=== PATIENT | female | born 1935 | race Caucasian/White ===

== ENCOUNTER 2017-01-31 13:15 | Emergency (ER) | payer MEDICARE ==
[~2017-01-31] VITALS: Ht 152.4 cm; Wt 50.0 kg
[~2017-01-31 13:15] MED LIST: ALDA25TA2 PO; AMIO200T FT; ASPI1TAB PO; ATEN25TA PO; FAMO40TA3 PO; GLUC500C5 PO; OMEP40CA2 PO; PAXI40TA10 PO; VITA400T PO; VITACAP9 PO; XARE20TA PO
[2017-01-31] MEDS ORDERED: ESCI10TA2 PO (13:30)
[2017-01-31] MEDS ORDERED: ESOM1CAP5 PO (13:30)
[2017-01-31 15:07] VITALS: BP 136/63
--- NOTE | 2017-02-01 06:28 | REP ---
CT LUMBAR SPINE WITHOUT CONTRAST: HISTORY: Fall. A diffuse disc bulge is present at the L1-2 level. There is minimal compression of the thecal sac. The L1 nerves exit the neural foramina without compression. A diffuse disc bulge is present at the L2-3 level. There is hypertrophy of the ligamenta flava and posterior articulating facets. There are 4 mm of retrolisthesis of L2 on 3. These findings produce mild central canal stenosis. There is compression of the right L2 nerve in the neural foramen. The left L2 nerve exits the neural foramen without compression. A diffuse disc bulge is present at the L3-4 level. There is hypertrophy of the ligamenta flava and posterior articulating facets. These findings produce mild central canal stenosis. There is compression of the left L3 nerve in the neural foramen. The right L3 nerve exits the neural foramen without compression. A diffuse disc bulge is present at the L4-5 level. There is hypertrophy of the ligamenta flava and posterior articulating facets. There are 3 mm of grade 1 spondylolisthesis of L4 on 5. These findings produce severe central canal stenosis. There is compression of the L4 nerves in the neural foramina. A diffuse disc bulge is present at the L5-S1 level. There is hypertrophy of the ligamenta flava and posterior articulating facets. There are 4 mm of grade 1 spondylolisthesis of L5 on S1. These findings produce mild central canal stenosis. There is compression of the L5 nerves in the neural foramina. The intervertebral discs are decreased in height. Vacuum phenomenon is present at the L3-4 level. These findings are consistent with disc degeneration. There is partial fusion of the L1 and L2 vertebral bodies. There is scoliosis convex to the left. IMPRESSION: 1. Diffuse disc bulge at the L1-2 level with minimal thecal sac compression. 2. Mild central canal stenosis at the L2-3 level secondary to disc bulge, ligamentous and facet hypertrophy and retrolisthesis. 3. Mild central canal stenosis at the L3-4 level secondary to disc bulge, ligamentous and facet hypertrophy. 4. Severe central canal stenosis at the L4-5 level secondary to disc bulge, ligamentous and facet hypertrophy and grade 1 spondylolisthesis. 5. Mild central canal stenosis at the L5-S1 level secondary to disc bulge, ligamentous and facet hypertrophy and grade 1 spondylolisthesis. Signed by Ac Gallegos MD 02/01/2017 08:55 A
== END 2017-01-31 15:25 | disposition home or self-care (01) ==
LOC: M ED 13:15
DX: M48.061 Spinal stenosis, lumbar region without neurogenic claudication (principal); K58.9 Irritable bowel syndrome, unspecified; Z79.899 Other long term (current) drug therapy; Z79.01 Long term (current) use of anticoagulants; Z87.891 Personal history of nicotine dependence

== ENCOUNTER 2018-01-01 17:38 | Emergency (ER) | payer MEDICARE ==
[2018-01-01 19:03] LABS: HEMATOCRIT 34.7 % (36.0-47.0); HEMOGLOBIN 11.9 g/dl (12.0-15.5); MEAN CORPUSCULAR HEMOGLOBIN 33.8 pg (27.0-33.0); MEAN CORPUSCULAR HGB CONC 34.3 g/dl (32.0-36.5); MEAN CORPUSCULAR VOLUME 98.6 fl (80.0-96.0); PLATELET COUNT, AUTOMATED 262 10^3/uL (150-450); RED BLOOD COUNT 3.52 10^6/uL (4.00-5.40); WHITE BLOOD COUNT 5.1 10^3/uL (4.0-10.0)
[2018-01-01 19:36] LABS: ANION GAP 4 MEQ/L (8-16); BLOOD UREA NITROGEN 28 MG/DL (7-18); CARBON DIOXIDE LEVEL 32 MEQ/L (21-32); CHLORIDE LEVEL 104 MEQ/L (98-107); CREATININE FOR GFR 1.24 MG/DL (0.55-1.30); GLOMERULAR FILTRATION RATE 43.9 (>32); GLUCOSE, FASTING 81 MG/DL (70-100); MAGNESIUM LEVEL 2.1 MG/DL (1.8-2.4); POTASSIUM SERUM 4.6 MEQ/L (3.5-5.1); SODIUM LEVEL 140 MEQ/L (136-145)
== END 2018-01-01 20:57 | disposition home or self-care (01) ==
LOC: M ED 17:38
DX: R00.2 Palpitations (principal); R00.1 Bradycardia, unspecified; I44.7 Left bundle-branch block, unspecified; I48.91 Unspecified atrial fibrillation; I47.1 Supraventricular tachycardia; Z79.899 Other long term (current) drug therapy
CPT/HCPCS: 93005

== ENCOUNTER 2018-05-24 19:59 | Emergency (ER) | payer MEDICARE ==
[~2018-05-24] VITALS: Ht 160 cm; Wt 50.5 kg
[~2018-05-24 19:59] MED LIST changes: +ESCI10TA2 PO; +ESOM1CAP5 PO
[2018-05-24 22:22] LABS: BASO % 0.4 % (0.0-1.0); EOS # 0.1 10^3/uL (0.0-0.50); EOS % 1.2 % (0.0-3.0); HEMATOCRIT 35.7 % (36.0-47.0); HEMOGLOBIN 12.1 g/dl (12.0-15.5); LYMPH # 1.3 10^3/uL (1.5-4.5); LYMPH % 24.7 % (24.0-44.0); MEAN CORPUSCULAR HEMOGLOBIN 33.9 pg (27.0-33.0); MEAN CORPUSCULAR HGB CONC 33.9 g/dl (32.0-36.5); MONO # 0.2 10^3/uL (0.0-0.8); MONO % 4.3 % (0.0-5.0); NEUTROPHILS # 3.6 10^3/uL (1.8-7.7); NEUTROPHILS % 69.2 % (36.0-66.0); PLATELET COUNT, AUTOMATED 245 10^3/uL (150-450); RED BLOOD COUNT 3.57 10^6/uL (4.00-5.40); WHITE BLOOD COUNT 5.1 10^3/uL (4.0-10.0)
--- NOTE | 2018-05-24 22:25 | REPVR ---
EXAM: CT Head Without Contrast EXAM DATE/TIME: 05/24/2018 10:02 PM CLINICAL HISTORY: 82 years old, female; Signs and symptoms; Other: General weakness; Additional info: CVA - nursing interventions must not delay CT TECHNIQUE: Axial computed tomography images of the head/brain without contrast. All CT scans at this facility use at least one of these dose optimization techniques: automated exposure control; mA and/or kV adjustment per patient size (includes targeted exams where dose is matched to clinical indication); or iterative reconstruction. COMPARISON: No relevant prior studies available. FINDINGS: Brain: There is parenchymal volume loss. White matter changes are demonstrated in the subcortical, centrum semiovale and periventricular white matter consistent with small vessel white matter angiopathic gliosis. Ventricles: Normal. No ventriculomegaly. Bones/joints: Normal. No acute fracture. Sinuses: Normal as visualized. No acute sinusitis. Mastoid air cells: Normal as visualized. No mastoid effusion. Soft tissues: Normal. Vasculature: Atherosclerotic changes in the intracranial carotid arteries. No hyperdense MCA sign. IMPRESSION: There is parenchymal volume loss. White matter changes are demonstrated in the subcortical, centrum semiovale and periventricular white matter consistent with small vessel white matter angiopathic gliosis. The [place] Stroke Stroke Protocol Score (ASPECT) is 10. Electronically signed by: Timbo Mora On 05/24/2018 22:25:09 PM
[2018-05-24 22:35] LABS: INR 1.46
[2018-05-24 22:36] LABS: PARTIAL THROMBOPLASTIN TIME 35.1 SECONDS (25.4-37.6)
[2018-05-24 22:46] LABS: CREATININE FOR GFR 1.02 MG/DL (0.55-1.30); MB/CK RELATIVE INDEX 3.64 (< OR =4); POTASSIUM SERUM 3.8 MEQ/L (3.5-5.1); TROPONIN I 0.02 NG/ML (< 0.10)
[2018-05-24 23:05] VITALS: BP 158/70
--- NOTE | 2018-05-25 09:07 | REP ---
PORTABLE CHEST X-RAY: Single view. HISTORY: CVA. COMPARISON STUDY: February 23, 2016. FINDINGS: There is a fairly marked S-shaped thoracolumbar scoliotic curve. The right hemidiaphragm is markedly elevated unchanged. There is a heterogeneous increased density pattern over the heart suggesting hiatal hernia. This is also similar to the prior study. Heart is not felt to be enlarged. The aorta is tortuous and calcific. No new infiltrate is seen. No pleural effusion is noted. Pulmonary vasculature is not increased. There is diffuse osteopenia. IMPRESSION: Markedly elevated right hemidiaphragm. Probable hiatal hernia. No acute disease. Electronically Signed by Kirby Sanchez MD 05/25/2018 09:38 A
--- NOTE | 2018-05-29 10:06 | ECGEPIP ---
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
== END 2018-05-24 23:39 | disposition home or self-care (01) ==
LOC: EDBD 19:59 → M ED 19:59
DX: R53.81 Other malaise (principal); R63.4 Abnormal weight loss; I48.91 Unspecified atrial fibrillation; T43.015A Adverse effect of tricyclic antidepressants, initial encounter; M25.511 Pain in right shoulder; R35.0 Frequency of micturition; K58.0 Irritable bowel syndrome with diarrhea; K21.9 Gastro-esophageal reflux disease without esophagitis; I47.1 Supraventricular tachycardia; Z87.891 Personal history of nicotine dependence; Z79.899 Other long term (current) drug therapy; Z79.01 Long term (current) use of anticoagulants

== ENCOUNTER 2018-08-27 15:32 | Emergency (ER) | payer MEDICARE ==
[~2018-08-27] VITALS: Ht 152.4 cm; Wt 48.6 kg
[~2018-08-27 15:32] MED LIST changes: -ASPI1TAB PO; +ASPI81TA26 PO
[2018-08-27 15:33] VITALS: BP 185/82
--- NOTE | 2018-08-27 16:08 | REP ---
CT Head without contrast HISTORY: Fall COMPARISON: 05/24/2018 Areas of decreased attenuation are present in the periventricular white matter. This represents small-vessel ischemic disease. There is no intraparenchymal hemorrhage, acute infarct, mass or midline shift. The ventricular system and cortical sulci are dilated consistent with mild volume loss. There is no extra cerebral collection. There is no fracture. The visualized sinuses are clear. IMPRESSION: 1. Small vessel ischemic disease. 2. Mild volume loss. Electronically Signed by Ac Gallegos MD 08/27/2018 03:59 P
--- NOTE | 2018-08-27 16:13 | REP ---
CT cervical spine without contrast HISTORY: Fall COMPARISON: None There is no acute fracture. A disc bulge is present at the C2-3 level. Disc bulges with associated osteophyte formation are present at the C3-4 through C6-7 levels. There is minimal narrowing of the spinal canal. Uncinate process and/or facet hypertrophy are present at the C2-3 through C7-T1 levels. These findings produce minimal to moderate narrowing of the neural foramina. The cervical intervertebral discs are decreased in height consistent with disc degeneration. There is extensive calcification of the C2 transverse ligament. Subchondral cysts are present in the the C2, four and five vertebral bodies. There are 2 mm of anterior subluxation of C3-4 and C7 on T1. IMPRESSION: 1. There is no acute fracture or subluxation. 2. There is cervical spondylosis at the C2-3 through C7-T1 levels. Electronically Signed by Ac Gallegos MD 08/27/2018 04:05 P
--- NOTE | 2018-08-27 16:28 | REP ---
Chest one-view HISTORY: Fall Comparison: 05/24/2018 There is elevation of the right hemidiaphragm. The lungs are clear. The heart is normal in size. The pulmonary vasculature is normal in appearance. Impression: No acute disease. Electronically Signed by Ac Gallegos MD 08/27/2018 04:19 P
--- NOTE | 2018-08-28 07:16 | REP ---
AP PELVIS, ONE VIEW: HISTORY: Fall. There is no acute fracture or dislocation. There is marked narrowing of the right hip joint space and mild narrowing of the left hip joint space. The bony structure is osteopenic. IMPRESSION: There is no acute fracture or dislocation. Electronically Signed by Ac Gallegos MD 08/28/2018 08:33 A
--- NOTE | 2018-08-28 07:18 | REP ---
LEFT HIP, TWO VIEWS: HISTORY: Fall. There is no acute fracture or dislocation. There is mild narrowing of the joint space. The bony structure is osteopenic. IMPRESSION: There is no acute fracture or dislocation. Electronically Signed by Ac Gallegos MD 08/28/2018 08:33 A
--- NOTE | 2018-08-28 07:19 | REP ---
LEFT FEMUR, TWO VIEWS: The proximal third of the femur is not seen in the present radiographs. There is no acute fracture or dislocation. There is moderate narrowing of the knee joint space. Chondrocalcinosis is present. The bony structure is osteopenic. IMPRESSION: There is no acute fracture or dislocation. Electronically Signed by Ac Gallegos MD 08/28/2018 08:33 A
== END 2018-08-27 17:46 | disposition home or self-care (01) ==
LOC: M ED 15:32
DX: S00.93XA Contusion of unspecified part of head, initial encounter (principal); S70.02XA Contusion of left hip, initial encounter; W01.198A Fall on same level from slipping, tripping and stumbling with subsequent striking against other object, initial encounter; Y92.488 Other paved roadways as the place of occurrence of the external cause; Y99.8 Other external cause status; Z79.01 Long term (current) use of anticoagulants; Z79.899 Other long term (current) drug therapy

== ENCOUNTER 2019-03-11 21:03 | Emergency (ER) | payer MEDICARE ==
[~2019-03-11] VITALS: Ht 152.4 cm; Wt 45.5 kg
[~2019-03-11 21:03] MED LIST changes: -OMEP40CA2 PO; +OMEP40CA97 PO
[2019-03-11 21:07] VITALS: BP 180/94
[2019-03-11] MEDS ORDERED: REME15TA PO (21:28)
[2019-03-11] MEDS ORDERED: CARV3.12 PO (21:28)
[2019-03-11] MEDS ORDERED: traMADol 50 MG TAB PO ONE (21:45)
[2019-03-11] MEDS ORDERED: NS 500 ML IV ONE (21:45)
[2019-03-11 21:55] LABS: BASO % 0.2 % (0.0-1.0); EOS % 0.1 % (0.0-3.0); HEMATOCRIT 35.7 % (36.0-47.0); HEMOGLOBIN 11.6 g/dl (12.0-15.5); LYMPH # 0.8 10^3/uL (1.5-5.0); LYMPH % 4.7 % (24.0-44.0); MEAN CORPUSCULAR HEMOGLOBIN 34.1 pg (27.0-33.0); MEAN CORPUSCULAR HGB CONC 32.5 g/dl (32.0-36.5); MONO # 0.5 10^3/uL (0.0-0.8); MONO % 2.9 % (0.0-5.0); NEUTROPHILS # 14.9 10^3/uL (1.5-8.5); NEUTROPHILS % 91.5 % (36.0-66.0); PLATELET COUNT, AUTOMATED 332 10^3/uL (150-450); WHITE BLOOD COUNT 16.3 10^3/uL (4.0-10.0)
[2019-03-11 22:15] LABS: CALCIUM LEVEL 8.9 MG/DL (8.8-10.2); CREATININE FOR GFR 1.43 MG/DL (0.55-1.30); GLOMERULAR FILTRATION RATE 37.1 (>32); POTASSIUM SERUM 4.1 MEQ/L (3.5-5.1)
--- NOTE | 2019-03-11 22:41 | REPVR ---
PROCEDURE INFORMATION: Exam: CT Pelvis Without Contrast; Skeletal Exam date and time: 03/11/2019 9:54 PM Clinical history: 83 years old, female; Injury or trauma; Fall; Initial encounter; Blunt trauma (contusions or hematomas); Bilateral; Pelvic region; Additional info: Tr TECHNIQUE: Imaging protocol: Computed tomography images of the pelvis without contrast. Exam focused on the skeletal structures. Radiation optimization: All CT scans at this facility use at least one of these dose optimization techniques: automated exposure control; mA and/or kV adjustment per patient size (includes targeted exams where dose is matched to clinical indication); or iterative reconstruction. COMPARISON: CR Pelvis Ap ONLY 08/27/2018 3:59 PM FINDINGS: Bones/joints: There is a nondisplaced fracture extending to the anterior cortex of the S3 segment of the sacrum (image 62, series 204). Fracture may extend to the dorsal surface of the sacrum at the same level. No other sacral fracture is seen. Old healed fractures of the left superior and inferior pubic rami. No other fractures are seen. Advanced osteoarthritis in both hips, worse on the right. Normal alignment. Femoral heads are intact. Advanced degenerative spondylosis in the lumbar spine with and spinal stenosis at L4-5 and L5-S1. Bilateral SI joint DJD without ankylosis or diastases. Soft tissues: Unremarkable. IMPRESSION: 1. Nondisplaced transverse mid sacral fracture. 2. Old healed left superior and inferior pubic rami fractures. 3. Advanced degenerative spondylosis with lower lumbar spinal stenosis and hip osteoarthritis. Electronically signed by: Victorino Briggs On 03/11/2019 22:40:24 PM
--- NOTE | 2019-03-11 22:46 | REPVR ---
PROCEDURE INFORMATION: Exam: CT Right Lower Extremity Without Contrast, Hip Exam date and time: 03/11/2019 9:54 PM Clinical history: 83 years old, female; Injury or trauma; Fall; Initial encounter; Blunt trauma; Hip; Bilateral; Additional info: Tr TECHNIQUE: Imaging protocol: CT of the Right lower extremity without contrast was performed. Exam focused on the hip. Radiation optimization: All CT scans at this facility use at least one of these dose optimization techniques: automated exposure control; mA and/or kV adjustment per patient size (includes targeted exams where dose is matched to clinical indication); or iterative reconstruction. COMPARISON: CR Hip, Ap,Lat 08/27/2018 3:59 PM FINDINGS: Bones/joints: Advanced degenerative changes in the right SI joint, pubic symphysis, and right hip. No acute fracture or malalignment. Soft tissues: Normal. IMPRESSION: 1. No hip fracture or malalignment. 2. Advanced osteoarthritis. 3. Transverse fracture of the sacrum at S3. See pelvis CT report. PROCEDURE INFORMATION: Exam: CT Left Lower Extremity Without Contrast, Hip Exam date and time: 03/11/2019 9:54 PM Clinical history: 83 years old, female; Injury or trauma; Fall; Initial encounter; Blunt trauma; Hip; Bilateral; Additional info: Tr TECHNIQUE: Imaging protocol: CT of the Left lower extremity without contrast was performed. Exam focused on the hip. Radiation optimization: All CT scans at this facility use at least one of these dose optimization techniques: automated exposure control; mA and/or kV adjustment per patient size (includes targeted exams where dose is matched to clinical indication); or iterative reconstruction. COMPARISON: CR Hip, Ap,Lat 08/27/2018 3:59 PM FINDINGS: Bones/joints: Old healed left inferior and superior pubic rami fractures. Advanced degenerative arthrosis in the left SI joint, pubic symphysis, and left hip. No acute fracture or malalignment. Soft tissues: Normal. IMPRESSION: 1. No acute hip fracture or malalignment. 2. Advanced osteoarthritis. Electronically signed by: Victorino Briggs On 03/11/2019 22:46:13 PM
[2019-03-11] MEDS ORDERED: VICO7.5T12 PO (23:38)
[2019-03-11] MEDS ORDERED: NORCO 5/325MG TABLET (BULK FOR ED) PO ONE (23:45)
== END 2019-03-12 00:05 | disposition home or self-care (01) ==
LOC: M ED 21:03
DX: S32.10XA Unspecified fracture of sacrum, initial encounter for closed fracture (principal); W18.39XA Other fall on same level, initial encounter; Y92.018 Other place in single-family (private) house as the place of occurrence of the external cause; I47.1 Supraventricular tachycardia; E83.119 Hemochromatosis, unspecified; Z79.899 Other long term (current) drug therapy; Z79.01 Long term (current) use of anticoagulants

== ENCOUNTER → 2019-03-27 | Outpatient (REF) ==
[~2019-03-27] MED LIST changes: +CARV3.12 PO; +REME15TA PO; +VICO7.5T12 PO
[2019-03-27 08:17] LABS: ALBUMIN 3.1 GM/DL (3.2-5.2); BILIRUBIN,DIRECT 0.3 MG/DL (0.0-0.2); BILIRUBIN,TOTAL 0.8 MG/DL (0.2-1.0); CALCIUM LEVEL 8.7 MG/DL (8.8-10.2); CREATININE FOR GFR 1.06 MG/DL (0.55-1.30); GLOMERULAR FILTRATION RATE 52.4 (>32); POTASSIUM SERUM 4.4 MEQ/L (3.5-5.1); TOTAL PROTEIN 6.5 GM/DL (6.4-8.2)
[2019-03-27 08:49] LABS: HEMATOCRIT 35.8 % (36.0-47.0); HEMOGLOBIN 11.5 g/dl (12.0-15.5); MEAN CORPUSCULAR HEMOGLOBIN 34.4 pg (27.0-33.0); MEAN CORPUSCULAR HGB CONC 32.1 g/dl (32.0-36.5); MEAN CORPUSCULAR VOLUME 107.2 fl (80.0-96.0); PLATELET COUNT, AUTOMATED 369 10^3/uL (150-450); RED BLOOD COUNT 3.34 10^6/uL (4.00-5.40)
== END ==
LOC: SKLAB5 09:58
PROVIDERS: ATTEND Internal Medicine
DX: D64.9 Anemia, unspecified (principal); Z79.899 Other long term (current) drug therapy

== ENCOUNTER 2019-11-25 13:33 | Emergency (ER) | payer MEDICARE ==
[~2019-11-25 13:33] MED LIST changes: -AMIO200T FT; +AMIO200T3 FT
[2019-12-22 11:38] LABS: INR 2.04; PARTIAL THROMBOPLASTIN TIME 30.8 SECONDS (25.0-38.4); PROTHROMBIN TIME 23.5 SECONDS (11.8-14.0)
[2019-12-22 14:46] LABS: BASO % 0.4 % (0.0-1.0); EOS % 0.3 % (0.0-3.0); HEMATOCRIT 32.5 % (36.0-47.0); HEMOGLOBIN 11.2 g/dl (12.0-15.5); LYMPH # 1.8 10^3/uL (1.5-5.0); LYMPH % 26.2 % (24.0-44.0); MEAN CORPUSCULAR HEMOGLOBIN 34.6 pg (27.0-33.0); MEAN CORPUSCULAR HGB CONC 34.5 g/dl (32.0-36.5); MEAN CORPUSCULAR VOLUME 100.3 fl (80.0-96.0); MONO # 0.3 10^3/uL (0.0-0.8); MONO % 4.6 % (0.0-5.0); NEUTROPHILS # 4.7 10^3/uL (1.5-8.5); NEUTROPHILS % 68.2 % (36.0-66.0); PLATELET COUNT, AUTOMATED 321 10^3/uL (150-450); RED BLOOD COUNT 3.24 10^6/uL (4.00-5.40)
[2020-01-02 07:41] LABS: CALCIUM LEVEL 9.6 MG/DL (8.8-10.2); CREATININE FOR GFR 1.18 MG/DL (0.55-1.30); GLOMERULAR FILTRATION RATE 46.2 (>32); PHOSPHORUS LEVEL 3.5 MG/DL (2.5-4.9); POTASSIUM SERUM 4.7 MEQ/L (3.5-5.1)
[2020-01-02 07:42] LABS: ALBUMIN 3.9 GM/DL (3.2-5.2); BILIRUBIN,DIRECT 0.5 MG/DL (0.0-0.2); BILIRUBIN,TOTAL 2.4 MG/DL (0.2-1.0); CK-MB VALUE MASS 2.9 NG/ML (<3.6); FREE T4 1.45 NG/DL (0.76-1.46); MAGNESIUM LEVEL 1.9 MG/DL (1.8-2.4); MB/CK RELATIVE INDEX 1.9 (< OR =4); THYROID STIMULATING HORMONE 0.468 uIU/ML (0.358-3.740); TOTAL PROTEIN 7.1 GM/DL (6.4-8.2); TROPONIN I 0.02 NG/ML (< 0.10)
[2020-01-02 07:45] LABS: CK-MB VALUE MASS 2.4 NG/ML (<3.6); MB/CK RELATIVE INDEX 1.86 (< OR =4); TROPONIN I 0.02 NG/ML (< 0.10)
--- NOTE | 2020-01-18 16:15 | ECGEPIP ---
SINUS RHYTHM WITH SINUS ARRHYTHMIA LAD LBBB SEE SCANNED DOWNTIME REPORT MTDD
== END 2019-11-25 19:48 | disposition home or self-care (01) ==
LOC: M ED 13:33
DX: R07.9 Chest pain, unspecified (principal); R00.2 Palpitations; I48.91 Unspecified atrial fibrillation; I47.1 Supraventricular tachycardia; I44.7 Left bundle-branch block, unspecified; I34.1 Nonrheumatic mitral (valve) prolapse; Z79.899 Other long term (current) drug therapy; Z79.01 Long term (current) use of anticoagulants; Z87.891 Personal history of nicotine dependence

== ENCOUNTER 2020-02-15 11:44 | Emergency (ER) | payer MEDICARE ==
[~2020-02-15] VITALS: Ht 152.4 cm; Wt 46.4 kg
[2020-02-15] MEDS ORDERED: BUSP10TA (11:57)
[2020-02-15] MEDS ORDERED: MIRT1TAB15 (11:57)
[2020-02-15 14:00] LABS: BASO % 0.6 % (0.0-1.0); EOS # 0.1 10^3/uL (0.0-0.5); EOS % 0.8 % (0.0-3.0); HEMOGLOBIN 11.7 g/dl (12.0-15.5); LYMPH % 31.1 % (24.0-44.0); MEAN CORPUSCULAR HEMOGLOBIN 34.8 pg (27.0-33.0); MEAN CORPUSCULAR HGB CONC 33.4 g/dl (32.0-36.5); MEAN CORPUSCULAR VOLUME 104.2 fl (80.0-96.0); MONO # 0.3 10^3/uL (0.0-0.8); MONO % 4.9 % (0.0-5.0); NEUTROPHILS # 4.1 10^3/uL (1.5-8.5); NEUTROPHILS % 62.1 % (36.0-66.0); PLATELET COUNT, AUTOMATED 304 10^3/uL (150-450); RED BLOOD COUNT 3.36 10^6/uL (4.00-5.40); WHITE BLOOD COUNT 6.6 10^3/uL (4.0-10.0)
[2020-02-15 14:11] LABS: INR 1.99; PROTHROMBIN TIME 23.1 SECONDS (12.5-14.3)
[2020-02-15 14:15] LABS: ALBUMIN 3.8 GM/DL (3.2-5.2); BILIRUBIN,DIRECT 0.4 MG/DL (0.0-0.2); BILIRUBIN,TOTAL 1.7 MG/DL (0.2-1.0); TOTAL PROTEIN 6.9 GM/DL (6.4-8.2)
[2020-02-15 15:42] VITALS: BP 129/63
--- NOTE | 2020-02-15 19:41 | ECGEPIP ---
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
== END 2020-02-15 16:24 | disposition home or self-care (01) ==
LOC: M ED 11:44
DX: R19.5 Other fecal abnormalities (principal); J44.9 Chronic obstructive pulmonary disease, unspecified; I48.91 Unspecified atrial fibrillation; I44.7 Left bundle-branch block, unspecified; I10 Essential (primary) hypertension; Z79.899 Other long term (current) drug therapy

== ENCOUNTER 2020-03-15 07:48 | Inpatient (IN) | payer MEDICARE ==
[~2020-03-15] VITALS: Ht 152.4 cm; Wt 47.7 kg
[~2020-03-15 07:48] MED LIST changes: +BUSP10TA PO; +MIRT1TAB15
[2020-03-15] MEDS ORDERED: ACETAMINOPHEN 325 MG TAB PO ONE (08:45)
[2020-03-15 08:47] LABS: BASO % 0.3 % (0.0-1.0); EOS # 0.1 10^3/uL (0.0-0.5); EOS % 0.4 % (0.0-3.0); HEMATOCRIT 38.3 % (36.0-47.0); HEMOGLOBIN 12.9 g/dl (12.0-15.5); LYMPH # 2.3 10^3/uL (1.5-5.0); LYMPH % 18.2 % (24.0-44.0); MEAN CORPUSCULAR HGB CONC 33.7 g/dl (32.0-36.5); MEAN CORPUSCULAR VOLUME 103.8 fl (80.0-96.0); MONO # 0.5 10^3/uL (0.0-0.8); MONO % 3.9 % (0.0-5.0); NEUTROPHILS # 9.6 10^3/uL (1.5-8.5); NEUTROPHILS % 76.2 % (36.0-66.0); PLATELET COUNT, AUTOMATED 316 10^3/uL (150-450); RED BLOOD COUNT 3.69 10^6/uL (4.00-5.40); WHITE BLOOD COUNT 12.6 10^3/uL (4.0-10.0)
--- NOTE | 2020-03-15 09:06 | REP ---
INDICATION: abd pain, h/o constipation. COMPARISON: None TECHNIQUE: Supine one-view FINDINGS: There is a levorotatory scoliosis of the thoracolumbar spine centered at L2 and with extensive degenerative disc and facet arthritic changes. Large bridging syndesmophytes are seen along the right aspect of the L2-3 level. Facet arthropathy at all levels in a symmetric on the right and left sides at various levels according to altered weight-bearing mechanics. Bony pelvis, hips and SI joints also show some degenerative change. Few pelvic phleboliths are noted. I do not see definite stone in the renal fossa. Gas pattern is nonspecific. There is a paucity of gas in small bowel and no dilated colon to suggest constipation. There is some colonic interposition in the right upper quadrant between the diaphragm and liver. This is an anatomic variation. No definite renal or ureteral stone. IMPRESSION: 1. No evidence of constipation. Nonspecific gas pattern. There was some colonic interposition in the right upper quadrant as anatomic variation. 2. 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 3. Hip and SI joint degenerative changes. No definite acute finding. <Electronically signed by Frederick Amaya > 03/15/20 [id number]
[2020-03-15 09:14] LABS: ALBUMIN 3.8 GM/DL (3.2-5.2); ALT/SGPT 15 U/L (12-78); BILIRUBIN,DIRECT 0.2 MG/DL (0.0-0.2); BILIRUBIN,TOTAL 1.7 MG/DL (0.2-1.0); BLOOD UREA NITROGEN 34 MG/DL (7-18); CALCIUM LEVEL 9.3 MG/DL (8.8-10.2); CARBON DIOXIDE LEVEL 25 MEQ/L (21-32); CHLORIDE LEVEL 107 MEQ/L (98-107); CREATININE FOR GFR 1.12 MG/DL (0.55-1.30); GLOMERULAR FILTRATION RATE 49.1 (>32); GLUCOSE, FASTING 83 MG/DL (70-100); LIPASE 248 U/L (73-393); SODIUM LEVEL 138 MEQ/L (136-145); TOTAL PROTEIN 7.1 GM/DL (6.4-8.2)
[2020-03-15] MEDS: GASTROGRAFIN SOLUTION 30ML PO SCH ×2 (09:37→10:07)
[2020-03-15 10:19] LABS: CK-MB VALUE MASS 2.2 NG/ML (<3.6); CPK CREATINE PHOSPHOKINASE 129 U/L (26-192); MB/CK RELATIVE INDEX 1.71 (< OR =4); TROPONIN I < 0.02 NG/ML (< 0.10)
[2020-03-15] MEDS ORDERED: ONDANSETRON 4MG/2ML VIAL IV ONE (10:30)
[2020-03-15] MEDS ORDERED: ISOVUE-370 76% 100ML VIAL As Ordered ONE (11:00)
--- NOTE | 2020-03-15 12:17 | REP ---
INDICATION: diffuse abd pain. COMPARISON: CT pelvis 03/11/2019, CT abdomen 08/25/2016, KUB 03/15/2020 TECHNIQUE: Oral Gastrografin mixture per our bowel contrast protocol with bolus of 100 mL Isovue 370 scanning through the abdomen and pelvis with both coronal and sagittal reconstructions. FINDINGS: CT abdomen: Computational Biologist film shows levorotatory scoliosis centered at L3. Scoliosis exaggerates elevation of the right diaphragm. Tortuosity of the aorta and ectasia without gross aneurysm. Liver shows small cyst adjacent to the gallbladder fossa. No solid hepatic mass or intrahepatic biliary dilatation. No splenomegaly or focal splenic lesion. There is an hiatal hernia with the fundus of the diaphragm. No calcified gallstones. Pancreas without mass or ductal dilatation. No peripancreatic inflammatory change or fluid collection. An upper pole cyst is again seen in the right kidney and medially in the interpolar lower pole junction. Left kidney show no definite cyst. There is no hydronephrosis stone or solid mass. No ureteral dilatation or stone. Small bowel loops are grossly unremarkable. Oral contrast reaches the transverse colon. No colitis or diverticulitis in the right and most of the transverse colon. No aortic aneurysm. There is no periaortic retroperitoneal adenopathy. No free air on lung window review of all CT slices. No ascites. The bone windows show scoliosis advanced degenerative disc and facet changes without acute compression deformity in the lumbar spine facet arthropathy noted. The lower ribs grossly intact. CT pelvis: Degenerative changes both hips right greater than left with [id number] appearance for the right and marginal osteophytes greater right than left. The S3 anterior cortex fracture which is very well seen 4 days ago on the dedicated CT pelvis filtered bone windows, is not well seen on bone windows made from standard soft tissue filters. However this is a true fracture. In the left upper quadrant just before the splenic flexure there is wall edema and enhancement of a short segment of distal transverse colon at the splenic flexure. Is also some and the proximal left colon and infiltration of adjacent fat. Remainder of the left colon to proximal sigmoid was unremarkable. However there is a zone of wall thickening edema and infiltration of fat in the deep pelvis at the sigmoid with numerous diverticula and representing acute diverticulitis there is no perforation or abscess at this time. No pelvic mass. Small bowel loops unremarkable cecum. I do not see inflammatory change about the cecum. Bladder without mass or wall thickening. There is no renal ureteral or bladder stone. No ventral or inguinal hernia. IMPRESSION: Sigmoid diverticulitis with inflammatory changes in the fat adjacent but no definite evidence for perforation or abscess. There is a short segment of transverse colon before the splenic flexure and splenic flexure to proximal left colon with inflammatory changes suggesting a colitis although diverticulitis could be present. No specific diverticula seen in that region. There is no ascites abscess or free air anywhere in the abdomen or pelvis. Scoliosis in the danced degenerative changes of the spine. A nondisplaced fracture of the anterior cortex of the S3 sacral segment is better seen on the dedicated CT pelvis than this study. Few liver cysts but liver, spleen, gallbladder, pancreas, adrenal glands and kidneys without acute finding. Some renal cysts noted no stones. <Electronically signed by Frederick Amaya > 03/15/20 [id number]
[2020-03-15] MEDS ORDERED: MORPHINE 2 MG/ML 1ML VIAL (J2270) IV ONE (13:00)
[2020-03-15] MEDS ORDERED: XARE20TA PO (14:45)
[2020-03-15] MEDS ORDERED: SPIR-10 PO (14:45)
[2020-03-15] MEDS ORDERED: AUGMENTIN 875 MG TAB PO ONE (14:45)
[2020-03-15] MEDS ORDERED: D31000TA2 PO (14:45)
[2020-03-15] MEDS ORDERED: REME15TA PO (14:45)
[2020-03-15 15:13] LABS: CK-MB VALUE MASS 1.9 NG/ML (<3.6); CPK CREATINE PHOSPHOKINASE 53 U/L (26-192); MB/CK RELATIVE INDEX 3.58 (< OR =4); TROPONIN I < 0.02 NG/ML (< 0.10)
[2020-03-15] MEDS ORDERED: ACETAMINOPHEN TAB 650MG DOSE (2X325MG) PO PRN (16:00)
--- NOTE | 2020-03-15 16:17 | HPEPDOC ---
[facility] Medical History & Physical Date of Admission Mar 15, 2020 Date of Service: Mar 15, 2020 History and Physical CHIEF COMPLAINT: abdominal pain HISTORY OF PRESENT ILLNESS: 84 yo F with hx PMHx of COPD, afib (on xarelto), LBBB, presented to [facility] ER with progressively worsening generalized abdominal pain which started 1 day ago. It is 7/10 in severity, diffuse but worse in the bilateral lower quadrants non radiating and is not related to food. Patient does endorse that the pain seems to be related to constipation. She notices mild improvement in pain whenever she has a small hard bowel movement. She denies blood in stool. She denies subjective fevers/chills.. She has not eaten for the past 24 hours. She reports that she uses 2 L of oxygen at night, I suspect this is due to COPD but the patient states is due to her heart. She follows with Dr. Sebastian Ovalle cardiology, but states that she has not seen him in several years. Her history suggests paroxysmal supraventricular tachycardia, although she is on anticholesterol question therefore suspect this is atrial fibrillation. She does endorse feeling slight palpitations this morning, but have now resolved. Vitals and labs reviewed. T 98/4/ HR 80. RR22. BP 148/74. SpO2 96% on RA. WBC 12.6. Hgb 12.9. MCV 103.8. Na 13.8. K 5.0. T bili 1.7. D bili 0.2. AST 42. ALT 14. ALP 44. Trop <0.02 x 2. EKG no acute changes. UA showing 1+ blood. CT abdo pelvis reviewed. Showing sigmoid diverticulitis with possible colitis/diverticulitis in transverse colon pre-splenic flexure. PAST MEDICAL HISTORY: 1. Left bundle branch block. 2. Paroxysmal supraventricular tachycardia (PSVT). 3. Nonrheumatic tricuspid valve insufficiency. 4. Mitral valve disorder. 5. Chronic obstructive pulmonary disease (COPD). 6. Atrial fibrillation 7. Irritable bowel syndrome 8. Hemachromatosis 9. Depression PAST SURGICAL HISTORY: Left oophorectomy SOCIAL HISTORY: Patient is a former smoker, has a [id number] history Denies alcohol, denies illicit drug use FAMILY HISTORY: History of coronary artery disease and CVA ALLERGIES: Please see below. REVIEW OF SYSTEMS: CONSTITUTIONAL: patient denies fevers, chills HEENT: patient denies blurred vision, loss of vision, headache,. CARDIOVASCULAR: Occasional palpitations. Denies chest pain, although endorsed a heaviness. RESPIRATORY: patient denies shortness of breath, cough, hemoptysis. GASTROINTESTINAL: Patient reports diffuse abdominal pain, worse in the bilateral lower quadrants, reduced PO mouth intake, constipation GENITOURINARY: patient denies dysuria, discharge. SKIN: patient denies rashes. MUSCULOSKELETAL: patient denies joint pain, neck pain. NEUROLOGICAL: patient denies focal weakness, numbness, seizures. PSYCHIATRIC: patient denies SI/HI. ENDOCRINE: patient denies polyuria, heat intolerance, cold intolerance. HEMATOLOGIC/LYMPHATIC: patient denies easy bruising. HOME MEDICATIONS: Please see below. PHYSICAL EXAMINATION: VITAL SIGNS: please see below General: NAD, comfortable HEENT: PERRLA, EOMI, sclerae clear Neck: supple, normal ROM, no JVD Respiratory: lungs CTAB, no wheeze, no rales, no crackles CVS: RRR, normal S1, S2, no murmurs Abdo: soft, no masses, no hepatosplenomegaly, BS+, very mildly tender to palpation diffusely Extremities: no edema, pulses 2+ MSK: no joint deformities, normal ROM Neuro: no focal neuro deficits, moving all 4 extremities, CN2-12 intact. Strengt h 5/5 in all 4 extremities. No nystagmus. Psych: calm, cooperative, AAO x 3 LABORATORY DATA: See below. IMAGING: CT abdomen/pelvis (03/15/20): Sigmoid diverticulitis with inflammatory changes in the fat adjacent but no definite evidence for perforation or abscess. There is a short segment of transverse colon before the splenic flexure and splenic flexure to proximal left colon with inflammatory changes suggesting a colitis although diverticulitis could be present. No specific diverticula seen in that region. There is no ascites abscess or free air anywhere in the abdomen or pelvis. Scoliosis in the danced degenerative changes of the spine. A nondisplaced fracture of the anterior cortex of the S3 sacral segment is better seen on the dedicated CT pelvis than this study. Few liver cysts but liver, spleen, gallbladder, pancreas, adrenal glands and kidneys without acute finding. Some renal cysts noted no stones. MICROBIOLOGY: Please see below. ASSESSMENT: 84-year-old female with a history of SVT/A. fib on Oquist, COPD, GERD, IBS, hemachromatosis, depression who presented to [facility] from home with the diffuse abdominal pain, worse in the bilateral lower quadrants. CT imaging s uggestive of diverticulitis. Patient was admitted for the management of acute diverticulitis.. . PLAN: #Acute diverticulitis: WBC 12.6. Afebrile. Obtain blood cultures x 2. Flagyl 500 MG q8h IV. Cipro 400 mg IV q12h. Serial abdo exam. NPO except for meds. Tylenol for fevers. Morphine 2 mg IV q6h prn for pain. #Elevated bilirubin: repeat in AM. no transaminitis. Check liver US. #Hematuria: 1+ on UA. Likely 2/2 xarelto. Repeat as outpt. #hx of PSVT/afib?: AC with eliquis, although I am not certain of the indication as I cannot find documented afib. Coreg 3.125 mg PO q12h. #COPD: nocturnal O2. duonebs q4h prn. #Cor pulmonale: uses O2 NC 2L at home at night. Does not appear to be fluid overloaded #HX of Nonrheumatic tricuspid valve insufficiency. #Mitral valve disorder? - follow up with cardiology outpatient. # hx of coccyx fx (seen 03/15/20 CT): pain-free. Walks with cane. PT for home safety eval. DVT ppx: xarelto Code status: DNR/DNI, confirmed with patient. Vital Signs Vital Signs Date Time Temp Pulse Resp B/P (MAP) Pulse Ox O2 Delivery O2 Flow Rate FiO2 03/15/20 14:12 93 18 116/60 (78) 95 Room Air 03/15/20 11:40 98.4 Laboratory Data Labs 24H Laboratory Tests 2 03/15/20 08:29: Immature Granulocyte % (Auto) 1.0, Neutrophils (%) (Auto) 76.2H, Lymphocytes (%) (Auto) 18.2L, Monocytes (%) (Auto) 3.9, Eosinophils (%) (Auto) 0.4, Basophils (%) (Auto) 0.3, Neutrophils # (Auto) 9.6H, Lymphocytes # (Auto) 2.3, Monocytes # (Auto) 0.5, Eosinophils # (Auto) 0.1, Basophils # (Auto) 0.0, Nucleated Red Blood Cells % (auto) 0.0, Anion Gap 6L, Glomerular Filtration Rate 49.1, Calcium Level 9.3, Total Bilirubin 1.7H, Direct Bilirubin 0.2, Aspartate Amino Transf (AST/SGOT) 42H, Alanine Aminotransferase (ALT/SGPT) 15, Alkaline Phosphatase 44L, Total Creatine Kinase 129, Creatine Kinase MB 2.2, Creatine Kinase MB Relative Index 1.71, Troponin I < 0.02, Total Protein 7.1, Albumin 3.8, Albumin/Globulin Ratio 1.2, Lipase 248 03/15/20 09:04: Urine Color YELLOW, Urine Appearance CLEAR, Urine pH 5.0, Urine Specific [place] 1.019, Urine Protein NEGATIVE, Urine Glucose (UA) NEGATIVE, Urine Ketones NEGATIVE, Urine Blood 1+H, Urine Nitrite NEGATIVE, Urine Bilirubin NEGATIVE, Urine Urobilinogen 0.2, Urine Leukocyte Esterase NEGATIVE, Urine WBC (Auto) 1, Urine RBC (Auto) 2, Urine Hyaline Casts (Auto) 0, Urine Bacteria (Auto) NEGATIVE, Urine Squamous Epithelial Cells 0, Urine Mucus (Auto) SMALL, Urine Sperm (Auto) , Lactic Acid Level 0.8 03/15/20 14:36: Total Creatine Kinase 53, Creatine Kinase MB 1.9, Creatine Kinase MB Relative Index 3.58, Troponin I < 0.02 03/15/20 14:48: POC Troponin I (Misc) 0.02 03/15/20 15:42: CBC/BMP Laboratory Tests 03/15/20 08:29 Home Medications Scheduled Buspirone HCl (Buspirone HCl) 10 Mg Tablet, 10 MG PO BID Carvedilol (Carvedilol) 3.125 Mg Tablet, 3.125 MG PO BID Cholecalciferol (Vitamin D3) (Vitamin D3) 1,000 Unit Tablet, 1,000 UNITS PO QPM Mirtazapine (Remeron) 15 Mg Tablet, 22.5 MG PO DAILY Rivaroxaban (Xarelto) 20 Mg Tablet, 20 MG PO QPM Spironolactone (Spironolactone) 25 Mg Tablet, 12.5 MG PO DAILY Allergies Coded Allergies: No Known Allergies (Unverified , 03/15/20) NORMAN BENITES MD Mar 15, 2020 16:17
[2020-03-15 18:00] VITALS: BP 127/68
[2020-03-15 19:01] VITALS: BP 111/59
--- NOTE | 2020-03-15 19:29 | ECGEPIP ---
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
[2020-03-15] MEDS: VITAMIN D 1,000 INTERNATIONAL UNITS TABLET PO SCH (20:02)
[2020-03-15] MEDS: busPIRone 10 MG TAB PO SCH (20:02)
[2020-03-15] MEDS: CIPROFLOXACIN 400 MG in IV 1 EA IV SCH (20:06)
[2020-03-15] MEDS: DOCUSATE SODIUM 100 MG CAP PO SCH (20:06)
[2020-03-15] MEDS: RIVAROXABAN 20 MG TAB (XARELTO) PO SCH (20:06)
[2020-03-15] MEDS ORDERED: NS 1,000 ML IV SCH (20:30)
[2020-03-15] MEDS: CARVedilol 3.125 MG TAB PO SCH (21:00)
[2020-03-15] MEDS: metroNIDAZOLE 500 MG in IV 1 EA IV SCH (21:43)
[2020-03-15 22:00] VITALS: BP 100/60
[2020-03-16] MEDS: metroNIDAZOLE 500 MG in IV 1 EA IV SCH ×3 (03:02→18:12)
--- NOTE | 2020-03-16 04:12 | IPNPDOC ---
Text Note Date of Service The patient was seen on 03/16/20. NOTE I was called by the patient's nurse to discuss code status. Patient had init jace told admitting provider Dr. March that she wanted to be DNR/DNI. When speaking with admission nurse, she stated she wanted to be full code. In reviewing her chart, she appeared to have a MOLST form filled out while admitted to [facility] that stated DNR/DNI. There is no copy of this in the medical record. Patient's nurse discussed code status with the patient sand she stated she would like CPR. I came up and explained top the patient what the difference between full code and DNR is. Patient stated she would like to be resuscitated only if there was a good chance of saving her. I explained that we cannot be sure whether or not we would be able to resuscitate her until we were in the process of CPR. When asked if she remembers filing out the MOLST form a year ago she says she does not. She would like to be a full code for the time being. I suggested she talk to her daughter, who is her HCP, and see if they can find the MOLST and have a further discussion about it. Patient is alert and oriented and understand her decision. Order changed to full code. VS,Fishbone, I+O VS, Fishbone, I+O Laboratory Tests 03/15/20 08:29 Vital Signs Date Time Temp Pulse Resp B/P (MAP) Pulse Ox O2 Delivery O2 Flow Rate FiO2 03/15/20 22:00 98.7 95 17 100/60 (73) 97 Room Air I&O- Last 24 Hours up to 6 AM 03/16/20 06:00 Intake Total 0 ml Balance 0 ml GME ATTESTATION GME ATTESTATION My faculty preceptor for this patient encounter was physically present during the encounter and was fully available. All aspects of the patient interview, examination, medical decision making process, and medical care plan development were reviewed and approved by the faculty preceptor. The faculty preceptor is aware and concurs with the plan as stated in the body of this note and will attest to such by his/her cosignature. THALIA ALEXANDER DO Mar 16, 2020 04:12
[2020-03-16 06:00] VITALS: BP 101/56
[2020-03-16] MEDS: CIPROFLOXACIN 400 MG in IV 1 EA IV SCH ×2 (06:04→16:47)
[2020-03-16 06:40] VITALS: BP 110/70
[2020-03-16] MEDS: DOCUSATE SODIUM 100 MG CAP PO SCH ×2 (09:00→20:57)
[2020-03-16] MEDS: MIRTAZAPINE 15 MG TAB PO SCH (09:02)
[2020-03-16] MEDS: CARVedilol 3.125 MG TAB PO SCH ×2 (09:03→20:58)
[2020-03-16] MEDS: SPIRONOLACTONE 25 MG TAB PO SCH (09:03)
[2020-03-16] MEDS: busPIRone 10 MG TAB PO SCH ×2 (09:03→20:57)
[2020-03-16 09:09] LABS: BASO % 0.3 % (0.0-1.0); EOS % 0.2 % (0.0-3.0); LYMPH # 1.5 10^3/uL (1.5-5.0); LYMPH % 16.2 % (24.0-44.0); MEAN CORPUSCULAR HEMOGLOBIN 35.1 pg (27.0-33.0); MEAN CORPUSCULAR HGB CONC 33.9 g/dl (32.0-36.5); MEAN CORPUSCULAR VOLUME 103.7 fl (80.0-96.0); MONO # 0.4 10^3/uL (0.0-0.8); MONO % 4.6 % (0.0-5.0); NEUTROPHILS # 7.4 10^3/uL (1.5-8.5); NEUTROPHILS % 78.2 % (36.0-66.0); PLATELET COUNT, AUTOMATED 251 10^3/uL (150-450); RED BLOOD COUNT 2.99 10^6/uL (4.00-5.40); WHITE BLOOD COUNT 9.5 10^3/uL (4.0-10.0)
[2020-03-16 09:17] LABS: HEMOGLOBIN 10.5 g/dl (12.0-15.5)
[2020-03-16 09:36] LABS: ALT/SGPT 11 U/L (12-78); BILIRUBIN,TOTAL 2.4 MG/DL (0.2-1.0); BLOOD UREA NITROGEN 24 MG/DL (7-18); CALCIUM LEVEL 8.6 MG/DL (8.8-10.2); CARBON DIOXIDE LEVEL 25 MEQ/L (21-32); CHLORIDE LEVEL 106 MEQ/L (98-107); CREATININE FOR GFR 0.99 MG/DL (0.55-1.30); GLOMERULAR FILTRATION RATE 56.6 (>32); GLUCOSE, FASTING 81 MG/DL (70-100); MAGNESIUM LEVEL 1.8 MG/DL (1.8-2.4); POTASSIUM SERUM 4.3 MEQ/L (3.5-5.1); SODIUM LEVEL 137 MEQ/L (136-145); TOTAL PROTEIN 5.7 GM/DL (6.4-8.2); TROPONIN I < 0.02 NG/ML (< 0.10)
[2020-03-16 10:16] LABS: BILIRUBIN,DIRECT 0.5 MG/DL (0.0-0.2)
--- NOTE | 2020-03-16 12:16 | REP ---
INDICATION: fall. COMPARISON: AP pelvis of 08/27/2018 FINDINGS: There are changes in the cortex of the left superior and inferior pubic rami. There are bilateral hip degenerative changes and degenerative changes seen involving the sacroiliac joints. The bones are demineralized. IMPRESSION: Age undetermined left superior and inferior pubic rami fractures are suspected. <Electronically signed by Eben Valle > 03/16/20 [id number]
--- NOTE | 2020-03-16 12:19 | REP ---
INDICATION: fall. COMPARISON: 08/27/2018 FINDINGS: The left superior and inferior pubic rami are fractured. There are degenerative changes seen involving the hips and imaged portion of the spine. The bones are demineralized. IMPRESSION: Left luis alberto pelvic fractures as described above. <Electronically signed by Eben Valle > 03/16/20 [id number]
--- NOTE | 2020-03-16 13:23 | IPNPDOC ---
Date Seen The patient was seen on 03/16/20. Progress Note SUBJECTIVE: Patient was seen and examined at bedside this morning. She states abdominal pain has improved significantly. She has had 2 moderate-sized bowel movements this morning, with slight specks of blood as described by the patient. She denies fevers, chills, nausea, vomiting or diarrhea. She has no chest pain, and reports possibly faint palpitations, although she isn't sure. She states t hat she is hungry and reflux of food. Is seen ambulating around the room using a rolling walker, but she notes that she does not like using it. Prefers 4 point cane. Was called by RN, patient had slid out of bed. I was found sitting on the ground. Denies any pain. She states she had difficulty breathing. OBJECTIVE PHYSICAL EXAMINATION: General: NAD, comfortable HEENT: PERRLA, EOMI, sclerae clear Neck: supple, normal ROM, no JVD Respiratory: lungs CTAB, no wheeze, no rales, no crackles CVS: RRR, normal S1, S2, no murmurs Abdo: soft, no masses, no hepatosplenomegaly, BS+, very mildly tender to palpation diffusely Extremities: no edema, pulses 2+ MSK: no joint deformities, normal ROM Neuro: no focal neuro deficits, moving all 4 extremities, CN2-12 intact. Strength 5/5 in all 4 extremities. No nystagmus. Psych: calm, cooperative, AAO x 3 LABORATORY DATA, IMAGING STUDIES, MICROBIOLOGY: Please see below. DVT prophylaxis ordered?: Y, on xarelto ASSESSMENT AND PLAN: 84-year-old female with a history of SVT/A. fib on Oquist, COPD, GERD, IBS, hemachromatosis, depression who presented to [facility] from home with the diffuse abdominal pain, worse in the bilateral lower quadrants. CT imaging suggestive of diverticulitis. Patient was admitted for the management of acute diverticulitis. PROBLEMS: #Acute diverticulitis: WBC 12.6. Afebrile. Obtain blood cultures x 2. Flagyl 500 MG q8h IV. Cipro 400 mg IV q12h. Serial abdo exam. NPO except for meds. Tylenol for fevers. Morphine 2 mg IV q6h prn for pain. #Elevated bilirubin: repeat in AM. no transaminitis. Check liver US. #Hematuria: 1+ on UA. Likely 2/2 xarelto. Repeat as outpt. #Elevated bilirubin: CT does not show any intrahepatic biliary duct dilatation. No liver enzymes are elevated. Discussed with Dr. Alfaro, recommends MR imaging. We'll obtain MRCP to assess biliary structures. #hx of PSVT/afib?: Temperature. Heart rate in the 80s, SVT seen. AC with elimoses, although I am not certain of the indication as I cannot find documented afib. Coreg 3.125 mg PO q12h. I discussed this today with Dr. Kapoor, he reviewed to [facility]'s records indicating recent admission last year for bradycardia, likely due to medication. Given patient reporting slight palpitations, will increase Coreg to 6.25 mg by mouth every 12h. Will continue Xarelto and have patient follow up with Dr. Ovalle as outpatient. #COPD: nocturnal O2. duonebs q4h prn. #Cor pulmonale: uses O2 NC 2L at home at night. Does not appear to be fluid overloaded. . She has been saturating 97% with admission room air #HX of Nonrheumatic tricuspid valve insufficiency. #Mitral valve disorder? - follow up with cardiology outpatient. # hx of coccyx fx (seen 03/15/20 CT): pain-free. Walks with cane. PT for home safety eval. #fall: Patient noted to fall on the morning of 03/16/20 slid out of her chair. AP pelvis x-ray noted age-indeterminate left superior and inferior pubic rami fractures, these appear to be chronic, as have been seen on prior imaging Dispo: This patient fell out of bed. Patient was advised by physical therapy could not clear patient was safe for discharge OT ordered. VS, I&O, 24H, Fishbone Vital Signs/I&O Vital Signs Date Time Temp Pulse Resp B/P (MAP) Pulse Ox O2 Delivery O2 Flow Rate FiO2 03/16/20 09:03 83 110/70 03/16/20 06:00 98.3 16 96 Room Air I&O- Last 24 Hours up to 6 AM 03/16/20 06:00 Intake Total 0 ml Balance 0 ml Laboratory Data 24H LABS Laboratory Tests 2 03/15/20 14:36: Total Creatine Kinase 53, Creatine Kinase MB 1.9, Creatine Kinase MB Relative Index 3.58, Troponin I < 0.02 03/15/20 14:48: POC Troponin I (Misc) 0.02 03/15/20 15:42: Coronavirus (COVID-19)(PCR) NEGATIVE 03/16/20 08:24: Troponin I < 0.02, Immature Granulocyte % (Auto) 0.5, Neutrophils (%) (Auto) 78.2H, Lymphocytes (%) (Auto) 16.2L, Monocytes (%) (Auto) 4.6, Eosinophils (%) (Auto) 0.2, Basophils (%) (Auto) 0.3, Neutrophils # (Auto) 7.4, Lymphocytes # (Auto) 1.5, Monocytes # (Auto) 0.4, Eosinophils # (Auto) 0.0, Basophils # (Auto) 0.0, Nucleated Red Blood Cells % (auto) 0.0, Anion Gap 6L, Glomerular Filtration Rate 56.6, Calcium Level 8.6L, Magnesium Level 1.8, Total Bilirubin 2.4H, Direct Bilirubin 0.5H, Aspartate Amino Transf (AST/SGOT) 15, Alanine Aminotransferase (ALT/SGPT) 11L, Alkaline Phosphatase 43L, Total Protein 5.7L, Albumin 3.0#L, Albumin/Globulin Ratio 1.1L CBC/BMP Laboratory Tests 03/16/20 08:24 Microbiology Microbiology 03/15/20 Blood Culture, Received Pending 03/15/20 Blood Culture, Received Pending NORMAN BENITES MD Mar 16, 2020 13:23
[2020-03-16 14:00] VITALS: BP 105/48
--- NOTE | 2020-03-16 14:15 | REPVR ---
PROCEDURE INFORMATION: Exam: MR Abdomen Without Contrast Exam date and time: 03/16/2020 11:14 AM Age: 84 years old Clinical indication: Pain and condition or disease; Bile duct condition; Calculus (stone); With obstruction; Abdominal pain; Epigastric; Patient HX: Rising bilirubin, R/O obstruction, mass/stone/obstruction found on CT TECHNIQUE: Imaging protocol: MR of the abdomen without contrast. 3D rendering (Not supervised by radiologist): MIP and/or 3D reconstructed images were created by the technologist. COMPARISON: CT ABD/PEL W/IV ORAL CONTRAS 03/15/2020 11:09 AM FINDINGS: Mediastinum: Large hiatal hernia with intrathoracic stomach again noted. Liver: Multiple simple hepatic cysts. Gallbladder and bile ducts: The gallbladder is distended with a large gallbladder fold/Phrygian cap. No intrahepatic biliary ductal dilation. The common bile duct measures 9 mm. No choledocholithiasis. No cholelithiasis. Pancreas: Mild pancreatic atrophy. Mild dilation of proximal pancreatic duct measuring 5 mm. Spleen: No splenomegaly. Adrenals: No mass. Kidneys and ureters: Multiple simple right renal cysts. Stomach and bowel: Partially imaged pericolonic inflammation about the sigmoid colon from previously discussed diverticulitis on the recent comparison CT. Intraperitoneal space: No free fluid. Bones/joints: Thoracic levoscoliosis, partially imaged. Other findings: Asymmetric elevation of the right hemidiaphragm. IMPRESSION: 1. Common bile duct and pancreatic ductal dilation with no cholelithiasis or choledocholithiasis. A distal stricture is possible. No appreciable ampullary mass. This could be further assessed with ERCP if needed. 2. Gallbladder is distended with no ancillary features of cholecystitis. COMMENTS: Consistent with the [employer]'s Incidental Findings Committee white paper (J Am Lulu Radiol 2018): Any incidental renal lesion less than 1 cm or classified as too small to characterize, or any incidental cystic renal lesion characterized as simple-appearing, is likely benign. No follow-up imaging is recommended for these lesions per consensus recommendations based on imaging criteria. Electronically signed by: Gerardo Max On 03/16/2020 14:15:27 PM
[2020-03-16] MEDS: NS 1,000 ML IV SCH (19:45)
[2020-03-16] MEDS: VITAMIN D 1,000 INTERNATIONAL UNITS TABLET PO SCH (20:57)
[2020-03-16] MEDS: RIVAROXABAN 20 MG TAB (XARELTO) PO SCH (20:57)
[2020-03-16 22:00] VITALS: BP 136/65
[2020-03-17] MEDS: metroNIDAZOLE 500 MG in IV 1 EA IV SCH ×3 (02:47→17:31)
[2020-03-17] MEDS: CIPROFLOXACIN 400 MG in IV 1 EA IV SCH ×2 (05:52→16:38)
[2020-03-17 06:00] VITALS: BP 131/65
[2020-03-17 07:07] LABS: BASO % 0.3 % (0.0-1.0); EOS % 0.4 % (0.0-3.0); HEMATOCRIT 29.7 % (36.0-47.0); LYMPH # 1.2 10^3/uL (1.5-5.0); LYMPH % 15.5 % (24.0-44.0); MEAN CORPUSCULAR HEMOGLOBIN 35.2 pg (27.0-33.0); MEAN CORPUSCULAR HGB CONC 33.7 g/dl (32.0-36.5); MEAN CORPUSCULAR VOLUME 104.6 fl (80.0-96.0); MONO # 0.4 10^3/uL (0.0-0.8); NEUTROPHILS # 6.1 10^3/uL (1.5-8.5); NEUTROPHILS % 78.3 % (36.0-66.0); PLATELET COUNT, AUTOMATED 246 10^3/uL (150-450); RED BLOOD COUNT 2.84 10^6/uL (4.00-5.40); WHITE BLOOD COUNT 7.8 10^3/uL (4.0-10.0)
[2020-03-17 07:32] LABS: ALBUMIN 2.9 GM/DL (3.2-5.2); ALT/SGPT 9 U/L (12-78); BILIRUBIN,TOTAL 2.1 MG/DL (0.2-1.0); BLOOD UREA NITROGEN 16 MG/DL (7-18); CALCIUM LEVEL 8.8 MG/DL (8.8-10.2); CARBON DIOXIDE LEVEL 25 MEQ/L (21-32); CHLORIDE LEVEL 109 MEQ/L (98-107); CREATININE FOR GFR 0.85 MG/DL (0.55-1.30); GLOMERULAR FILTRATION RATE > 60.0 (>32); GLUCOSE, FASTING 79 MG/DL (70-100); MAGNESIUM LEVEL 1.7 MG/DL (1.8-2.4); POTASSIUM SERUM 3.8 MEQ/L (3.5-5.1); SODIUM LEVEL 139 MEQ/L (136-145); TOTAL PROTEIN 5.5 GM/DL (6.4-8.2)
[2020-03-17] MEDS: NS 1,000 ML IV SCH ×3 (07:49→22:21)
[2020-03-17] MEDS: DOCUSATE SODIUM 100 MG CAP PO SCH ×2 (08:20→22:19)
[2020-03-17] MEDS: MIRTAZAPINE 15 MG TAB PO SCH (08:21)
[2020-03-17] MEDS: busPIRone 10 MG TAB PO SCH ×2 (08:21→22:19)
[2020-03-17] MEDS: SPIRONOLACTONE 25 MG TAB PO SCH (08:21)
[2020-03-17] MEDS: CARVedilol 3.125 MG TAB PO SCH (08:21)
--- NOTE | 2020-03-17 10:47 | IPNPDOC ---
Date Seen The patient was seen on 03/17/20. Progress Note SUBJECTIVE: Patient was seen and examined at bedside this morning. She states abdominal pain has improved significantly. Per nursing, patient had approximately 8 bowel movements yesterday and overnight which were diarrhea. Has not resolved. Patient denies chest pain, fevers, chills, shortness of breath, nausea, vomiting, diarrhea. OBJECTIVE PHYSICAL EXAMINATION: General: NAD, comfortable HEENT: PERRLA, EOMI, sclerae clear Neck: supple, normal ROM, no JVD Respiratory: lungs CTAB, no wheeze, no rales, no crackles CVS: RRR, normal S1, S2, no murmurs Abdo: soft, no masses, no hepatosplenomegaly, BS+, very mildly tender to palpation diffusely Extremities: no edema, pulses 2+ MSK: no joint deformities, normal ROM Neuro: no focal neuro deficits, moving all 4 extremities, CN2-12 [address] Stre ngth 5/5 in all 4 extremities. No nystagmus. Psych: calm, cooperative, AAO x 3 LABORATORY DATA, IMAGING STUDIES, MICROBIOLOGY: Please see below. MRCP 03/16/20 IMPRESSION: 1. Common bile duct and pancreatic ductal dilation with no cholelithiasis or choledocholithiasis. A distal stricture is possible. No appreciable ampullary mass. This could be further assessed with ERCP if needed. 2. Gallbladder is distended with no ancillary features of cholecystitis. DVT prophylaxis ordered?: Y, on xarelto ASSESSMENT AND PLAN: 84-year-old female with a history of SVT/A. fib on Oquist, COPD, GERD, IBS, hemachromatosis, depression who presented to [facility] from home with the diffuse abdominal pain, worse in the bilateral lower quadrants. CT imaging suggestive of diverticulitis. Patient was admitted for the management of acute diverticulitis. PROBLEMS: #Acute diverticulitis: WBC resolved. Afebrile. Obtain blood cultures x 2. Flagyl 500 MG q8h IV. Cipro 400 mg IV q12h. Serial abdo exam. NPO except for meds. Tylenol for fevers. Morphine 2 mg IV q6h prn for pain. #Hematuria: 1+ on UA. Likely 2/2 xarelto. Repeat as outpt. #Elevated bilirubin: CT does not show any intrahepatic biliary duct dilatation. No liver enzymes are elevated. Discussed with Dr. Alfaro, recommends MR imaging. MRCP showing CBD and pancreatic ductal dilation with no cholelithiasis or choledocholithiasis. Distal stricture is possible. Patient is afebrile without pain. Outpatient GI for possible ERCP. #hx of PSVT/afib?: Temperature. Heart rate in the 80s, SVT seen. AC with eliquis, although I am not certain of the indication as I cannot find documented afib. Coreg 3.125 mg PO q12h. I discussed this today with Dr. Kapoor, he reviewed to [facility] records indicating recent admission last year for bradycardia, likely due to medication. Given patient reporting slight palpitations, will increase Coreg to 6.25 mg by mouth every 12h. Will continue Xarelto and have patient follow up with Dr. Ovalle as outpatient. #COPD: nocturnal O2. duonebs q4h prn. #Cor pulmonale: uses O2 NC 2L at home at night. Does not appear to be fluid overloaded. . She has been saturating 97% with admission room air #HX of Nonrheumatic tricuspid valve insufficiency. #Mitral valve disorder? - follow up with cardiology outpatient. # hx of coccyx fx (seen 03/15/20 CT): pain-free. Walks with cane. PT for home safety eval. Seen by ortho, chronic fx, no intervention required. WBAT. #fall: Patient noted to fall on the morning of 03/16/20 slid out of her chair. AP pelvis x-ray noted age-indeterminate left superior and inferior pubic rami fractures, these appear to be chronic, as have been seen on prior imaging. Seen by ortho, chronic fx, no intervention required. WBAT. Dispo: This patient fell out of bed. Patient was advised by physical therapy could not clear patient was safe for discharge OT ordered. VS, I&O, 24H, Fishbone Vital Signs/I&O Vital Signs Date Time Temp Pulse Resp B/P (MAP) Pulse Ox O2 Delivery O2 Flow Rate FiO2 03/17/20 08:21 87 131/65 03/17/20 06:00 96.0 18 97 Room Air I&O- Last 24 Hours up to 6 AM 03/17/20 06:00 Intake Total 540 ml Output Total 250 ml Balance 290 ml Laboratory Data 24H LABS Laboratory Tests 2 03/17/20 05:25: Immature Granulocyte % (Auto) 0.5, Neutrophils (%) (Auto) 78.3H, Lymphocytes (%) (Auto) 15.5L, Monocytes (%) (Auto) 5.0, Eosinophils (%) (Auto) 0.4, Basophils (%) (Auto) 0.3, Neutrophils # (Auto) 6.1, Lymphocytes # (Auto) 1.2L, Monocytes # (Auto) 0.4, Eosinophils # (Auto) 0.0, Basophils # (Auto) 0.0, Nucleated Red Blood Cells % (auto) 0.0, Anion Gap 5L, Glomerular Filtration Rate > 60.0, Calcium Level 8.8, Magnesium Level 1.7L, Total Bilirubin 2.1H, Aspartate Amino Transf (AST/SGOT) 14, Alanine Aminotransferase (ALT/SGPT) 9L, Alkaline Phosphatase 43L, Total Protein 5.5L, Albumin 2.9L, Albumin/Globulin Ratio 1.1L CBC/BMP Laboratory Tests 03/17/20 05:25 Microbiology Microbiology 03/15/20 Blood Culture - Preliminary, Resulted No growth after 24 hours . All specim... 03/15/20 Blood Culture - Preliminary, Resulted No growth after 24 hours . All specim... NORMAN BENITES MD Mar 17, 2020 10:47
[2020-03-17 11:00] LABS: BILIRUBIN,DIRECT 0.6 MG/DL (0.0-0.2)
[2020-03-17 14:00] VITALS: BP 123/65
[2020-03-17] MEDS: MAG SULF 1GM/100ML (MAG RUN) 1 GM in IV 1 EA IV SCH ×2 (14:18→15:28)
[2020-03-17 22:00] VITALS: BP 129/74
[2020-03-17] MEDS: RIVAROXABAN 20 MG TAB (XARELTO) PO SCH (22:19)
[2020-03-17] MEDS: CARVedilol 6.25 MG TAB PO SCH (22:20)
[2020-03-17] MEDS: VITAMIN D 1,000 INTERNATIONAL UNITS TABLET PO SCH (22:21)
[2020-03-18] MEDS: metroNIDAZOLE 500 MG in IV 1 EA IV SCH ×2 (02:17→09:26)
[2020-03-18] MEDS: CIPROFLOXACIN 400 MG in IV 1 EA IV SCH (05:26)
[2020-03-18 06:00] VITALS: BP 129/69
[2020-03-18 07:12] LABS: BASO % 0.5 % (0.0-1.0); EOS # 0.1 10^3/uL (0.0-0.5); HEMATOCRIT 29.2 % (36.0-47.0); LYMPH # 1.3 10^3/uL (1.5-5.0); LYMPH % 22.5 % (24.0-44.0); MEAN CORPUSCULAR HEMOGLOBIN 35.3 pg (27.0-33.0); MEAN CORPUSCULAR HGB CONC 34.2 g/dl (32.0-36.5); MEAN CORPUSCULAR VOLUME 103.2 fl (80.0-96.0); MONO # 0.3 10^3/uL (0.0-0.8); MONO % 5.5 % (0.0-5.0); NEUTROPHILS # 4.1 10^3/uL (1.5-8.5); NEUTROPHILS % 69.8 % (36.0-66.0); PLATELET COUNT, AUTOMATED 263 10^3/uL (150-450); RED BLOOD COUNT 2.83 10^6/uL (4.00-5.40); WHITE BLOOD COUNT 5.9 10^3/uL (4.0-10.0)
[2020-03-18 07:38] LABS: ALBUMIN 2.7 GM/DL (3.2-5.2); ALT/SGPT 11 U/L (12-78); BLOOD UREA NITROGEN 13 MG/DL (7-18); CALCIUM LEVEL 8.3 MG/DL (8.8-10.2); CARBON DIOXIDE LEVEL 22 MEQ/L (21-32); CHLORIDE LEVEL 110 MEQ/L (98-107); CREATININE FOR GFR 0.78 MG/DL (0.55-1.30); GLOMERULAR FILTRATION RATE > 60.0 (>32); GLUCOSE, FASTING 124 MG/DL (70-100); MAGNESIUM LEVEL 1.8 MG/DL (1.8-2.4); POTASSIUM SERUM 3.4 MEQ/L (3.5-5.1); SODIUM LEVEL 138 MEQ/L (136-145); TOTAL PROTEIN 5.8 GM/DL (6.4-8.2)
[2020-03-18] MEDS: MIRTAZAPINE 15 MG TAB PO SCH (09:26)
[2020-03-18] MEDS: SPIRONOLACTONE 25 MG TAB PO SCH (09:26)
[2020-03-18] MEDS: DOCUSATE SODIUM 100 MG CAP PO SCH (09:26)
[2020-03-18 09:27] VITALS: BP 131/70
[2020-03-18] MEDS: busPIRone 10 MG TAB PO SCH (09:27)
[2020-03-18] MEDS: CARVedilol 6.25 MG TAB PO SCH (09:27)
[2020-03-18] MEDS: NS 1,000 ML IV SCH (11:36)
[2020-03-18] MEDS ORDERED: CARV6.25 PO (13:01)
[2020-03-18] MEDS ORDERED: METR-265 PO (13:01)
[2020-03-18] MEDS ORDERED: ACET1TAB55 PO (13:01)
[2020-03-18] MEDS ORDERED: CIPR-249 PO (13:01)
--- NOTE | 2020-03-18 13:03 | DS.PDOC ---
Discharge Summary General Date of Admission Mar 15, 2020 at 16:11 Date of Discharge 03/18/20 Attending Physician: NORMAN BENITES MD Discharge Summary PROCEDURES PERFORMED DURING STAY: [None]. ADMITTING DIAGNOSES: acute diverticulitis paroxysmal supraventricular tachycardia (PSVT) nonrheumatic tricuspid valve insufficiency Mitral valve disorder Hematuria COPD Cor pulmonale Coccyx fx Pubic rami fractures DISCHARGE DIAGNOSES: acute diverticulitis/colitis paroxysmal supraventricular tachycardia (PSVT) nonrheumatic tricuspid valve insufficiency Mitral valve disorder Hematuria COPD Cor pulmonale Coccyx fx Pubic rami fractures COMPLICATIONS/CHIEF COMPLAINT: Diverticulitis. HISTORY OF PRESENT ILLNESS: 84 yo F with hx PMHx of COPD, afib (on xarelto), LBBB, presented to [facility] ER with progressively worsening generalized abdominal pain which started 1 day ago. It is 7/10 in severity, diffuse but worse in the bilateral lower quadrants non radiating and is not related to food. Patient does endorse that the pain seems to be related to constipation. She notices mild improvement in pain whenever she has a small hard bowel movement. She denies blood in stool. She denies subjective fevers/chills.. She has not eaten for the past 24 hours. She reports that she uses 2 L of oxygen at night, I suspect this is due to COPD but the patient states is due to her heart. She follows with Dr. Sebastian Ovalle cardiology, but states that she has not seen him in several years. Her history suggests paroxysmal supraventricular tachycardia, although she is on anticholesterol question therefore suspect this is atrial fibrillation. She does endorse feeling slight palpitations this morning, but have now resolved. Vitals and labs reviewed. T 98/4/ HR 80. RR22. BP 148/74. SpO2 96% on RA. WBC 12.6. Hgb 12.9. MCV 103.8. Na 13.8. K 5.0. T bili 1.7. D bili 0.2. AST 42. ALT 14. ALP 44. Trop <0.02 x 2. EKG no acute changes. UA showing 1+ blood. CT abdo pelvis reviewed. Showing sigmoid diverticulitis with possible colitis/diverticulitis in transverse colon pre-splenic flexure. HOSPITAL COURSE: #Acute diverticulitis: more likely colitis given 2 distinct areas in colon. WBC resolved. Afebrile. Bcx prelim neg x 2. . Flagyl 500 MG q8h IV. Cipro 400 mg IV q12h. NPO except for meds. Tylenol for fevers/pain. Patient tolerated GI soft diet prior to discharge. Rx to complete 7 total days of cipro and flagyl, given PO prescriptions. Advised to follow up with GI in 2-3 weeks. #Acute anemia:Small blood in stool, Hgb 12.9->10.0, stable x 3 days, in context of colitis. PLTS wnl. F/u GI outpt. #Diarrhea: improving, had ~8 BMS on 03/17, down to 4. No pain. No gross blood. No hx of recent abx use. On docusate 100 mg BID, stopped. Hx of IBS. Advised to f/u with PCP if persists. #Hematuria: 1+ on UA. Likely 2/2 xarelto. Repeat as outpt. #Elevated bilirubin: CT does not show any intrahepatic biliary duct dilatation. No liver enzymes are elevated. Discussed with Dr. Alfaro, recommends MR imaging. MRCP showing CBD and pancreatic ductal dilation with no cholelithiasis or choledocholithiasis. Distal stricture is possible. Patient is afebrile without pain. Outpatient GI for possible ERCP. #hx of PSVT/afib?: Temperature. Heart rate in the 80s, SVT seen. AC with leslee, although I am not certain of the indication as I cannot find documented afib. Coreg 3.125 mg PO q12h. I discussed this today with Dr. Kapoor, he reviewed to [place]'s records indicating recent admission last year for bradycardia, likely due to medication. No note of afib. Given patient reporting slight palpitations, will increase Coreg to 6.25 mg by mouth every 12h. Will continue Xarelto and have patient follow up with Dr. Ovalle as outpatient. #COPD: nocturnal O2. duonebs q4h prn. #Cor pulmonale: uses O2 NC 2L at home at night. Does not appear to be fluid overloaded. . She has been saturating 97% with admission room air #HX of Nonrheumatic tricuspid valve insufficiency. #Mitral valve disorder? - follow up with cardiology outpatient. # hx of coccyx fx (seen 03/15/20 CT): pain-free. Walks with cane. PT for home safety eval. Seen by ortho, chronic fx, no intervention required. WBAT. #fall: Patient noted to fall on the morning of 03/16/20 slid out of her chair. AP pelvis x-ray noted age-indeterminate left superior and inferior pubic rami fractures, these appear to be chronic, as have been seen on prior imaging. Seen by ortho, chronic fx, no intervention required. WBAT. Cleared by PT from mobil ity standpoint. Encouraged to use RW. Home PT. DISCHARGE MEDICATIONS: Please see below. ALLERGIES: Please see below. PHYSICAL EXAMINATION ON DISCHARGE: General: NAD, comfortable HEENT: PERRLA, EOMI, sclerae clear Neck: supple, normal ROM, no JVD Respiratory: lungs CTAB, no wheeze, no rales, no crackles CVS: RRR, normal S1, S2, no murmurs Abdo: soft, no masses, no hepatosplenomegaly, BS+, very mildly tender to palpation diffusely Extremities: no edema, pulses 2+ MSK: no joint deformities, normal ROM Neuro: no focal neuro deficits, moving all 4 extremities, CN2-12 intact. Strength 5/5 in all 4 extremities. No nystagmus. Psych: calm, cooperative, AAO x 3 LABORATORY DATA: Please see below. IMAGING: Bilateral hip XR (03/15/2020) COMPARISON: 08/27/2018 FINDINGS: The left superior and inferior pubic rami are fractured. There are degenerative changes seen involving the hips and imaged portion of the spine. The bones are demineralized. IMPRESSION: Left luis alberto pelvic fractures as described above. AP pelvis (03/16/2020) COMPARISON: AP pelvis of 08/27/2018 FINDINGS: There are changes in the cortex of the left superior and inferior pubic rami. There are bilateral hip degenerative changes and degenerative changes seen involving the sacroiliac joints. The bones are demineralized. IMPRESSION: Age undetermined left superior and inferior pubic rami fractures are suspected. MRCP 03/16/20 IMPRESSION: 1. Common bile duct and pancreatic ductal dilation with no cholelithiasis or choledocholithiasis. A distal stricture is possible. No appreciable ampullary mass. This could be further assessed with ERCP if needed. 2. Gallbladder is distended with no ancillary features of cholecystitis. Abdo xray (03/15/20): 1. No evidence of constipation. Nonspecific gas pattern. There was some colonic interposition in the right upper quadrant as anatomic variation. 2. 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 3. Hip and SI joint degenerative changes. No definite acute finding. CT abdomen/pelvis (03/15/20): Sigmoid diverticulitis with inflammatory changes in the fat adjacent but no definite evidence for perforation or abscess. There is a short segment of transverse colon before the splenic flexure and splenic flexure to proximal left colon with inflammatory changes suggesting a colitis although diverticulitis could be present. No specific diverticula seen in that region. There is no ascites abscess or free air anywhere in the abdomen or pelvis. Scoliosis in the danced degenerative changes of the spine. A nondisplaced fracture of the anterior cortex of the S3 sacral segment is better seen on the dedicated CT pelvis than this study. Few liver cysts but liver, spleen, gallbladder, pancreas, adrenal glands and kidneys without acute finding. Some renal cysts noted no stones. PROGNOSIS: good ACTIVITY: [As tolerated]. DIET: soft diet DISCHARGE PLAN: DC home with home health, home PT. F/u with GI 2-3 weeks and cardiology - Dr. Ovalle, per patient has upcoming appointment, patient's daughter Ms. Carrillo informed. DISCHARGE INSTRUCTIONS: 1. Please follow-up with your primary care doctor within 3-5 days 2. Please follow-up with Gastroenterology within 2 weeks. Follow up with Cardiology - Dr. Ovalle within 1-2 weeks. 3. Please taking medications as prescribed. Please complete total of 7 days of antibiotics to include metronidazole and Cipro. 4. If you develop worsening diarrhea, fall, bleeding, chest pain, shortness of breath, seizures, nausea, fevers, or otherwise worsening of your symptoms, please call 911 or return to the nearest emergency room To f/u: - repeat UA, microscopic hematuria on UA. DISCHARGE CONDITION: [Stable]. TIME SPENT ON DISCHARGE: 35 minutes Vital Signs/I&Os Vital Signs Date Time Temp Pulse Resp B/P (MAP) Pulse Ox O2 Delivery O2 Flow Rate FiO2 03/18/20 09:27 78 131/70 03/18/20 06:00 98.6 20 95 03/17/20 14:00 Room Air I&O- Last 24 Hours up to 6 AM 03/18/20 06:00 Intake Total 1870 ml Output Total 1600 ml Balance 270 ml Laboratory Data Labs 24H Laboratory Tests 2 03/18/20 06:33: Immature Granulocyte % (Auto) 0.7, Neutrophils (%) (Auto) 69.8H, Lymphocytes (%) (Auto) 22.5L, Monocytes (%) (Auto) 5.5H, Eosinophils (%) (Auto) 1.0, Basophils (%) (Auto) 0.5, Neutrophils # (Auto) 4.1, Lymphocytes # (Auto) 1.3L, Monocytes # (Auto) 0.3, Eosinophils # (Auto) 0.1, Basophils # (Auto) 0.0, Nucleated Red Blood Cells % (auto) 0.0, Anion Gap 6L, Glomerular Filtration Rate > 60.0, Calcium Level 8.3L, Magnesium Level 1.8, Total Bilirubin 1.0#, Aspartate Amino Transf (AST/SGOT) 9, Alanine Aminotransferase (ALT/SGPT) 11L, Alkaline Phosphatase 39L, Total Protein 5.8L, Albumin 2.7L, Albumin/Globulin Ratio 0.9L CBC/BMP Laboratory Tests 03/18/20 06:33 Microbiology Microbiology 03/15/20 Blood Culture - Preliminary, Resulted No Growth after 48 hours. All Specime... 03/15/20 Blood Culture - Preliminary, Resulted No Growth after 48 hours. All Specime... Discharge Medications Scheduled Buspirone HCl (Buspirone HCl) 10 Mg Tablet, 10 MG PO BID, (Reported) Carvedilol (Carvedilol) 6.25 Mg Tablet, 6.25 MG PO BID Cholecalciferol (Vitamin D3) (Vitamin D3) 1,000 Unit Tablet, 1,000 UNITS PO QPM, (Reported) Ciprofloxacin HCl (Cipro) 500 Mg Tablet, 500 MG PO BID Metronidazole (Metronidazole) 500 Mg Tablet, 500 MG PO TID Mirtazapine (Remeron) 15 Mg Tablet, 22.5 MG PO DAILY, (Reported) Rivaroxaban (Xarelto) 20 Mg Tablet, 20 MG PO QPM, (Reported) Spironolactone (Spironolactone) 25 Mg Tablet, 12.5 MG PO DAILY, (Reported) Scheduled PRN Acetaminophen (Acetaminophen) 325 Mg Tablet, 650 MG PO Q4H PRN for PAIN OR FEVER Allergies Coded Allergies: No Known Allergies (Unverified , 03/15/20) NORMAN BENITES MD Mar 18, 2020 13:03
[2020-03-18 14:00] VITALS: BP 124/80
--- NOTE | 2020-03-19 09:27 | CR ---
DATE OF CONSULTATION: 03/16/2020 TIME: Approximately 7 p.m. PHYSICIAN CONSULTED: Orthopaedic surgeon, Naif Judge MD PREOPERATIVE DIAGNOSIS: Chronic healed left superior pubic rami fracture and left inferior pubic rami fracture as well as a healed S3 chronic insufficiency fracture. REASON FOR CONSULTATION: Patient had a three foot fall. Imaging by the hospitalist, Dr. Eliu March, was ordered after concern after the three foot fall and orthopaedics was consulted to review the patients presentation as well as imaging findings. CONSULTATION NOTE: This is an 84-year-old female who was admitted 03/15/2020 by the hospitalist for abdominal pain. Patient has a past medical history of chronic obstructive pulmonary disease (COPD), atrial fibrillation, low back pain, who presented with worsening generalized abdominal pain for 1 day. This morning, on 03/16/2020, the patient had a three foot fall off the side of her bed and the patient at that point in time did not have significant pain, however the hospitalist consulted orthopaedic surgery for further evaluation of both the imaging findings as well as the patients presentation. PAST MEDICAL HISTORY: Includes: 1. Left bundle branch block. 2. Paroxysmal supraventricular tachycardia (PSVT). 3. Nonrheumatic tricuspid valve insufficiency. 4. Mitral valve disorder. 5. Chronic obstructive pulmonary disease. 6. Atrial fibrillation. 7. Irritable bowel syndrome. 8. Hemachromatosis. 9. Depression. 10. Patient had a previous toe removal by orthopaedics on unknown date. PAST SURGICAL HISTORY: 1. Left oophorectomy. 2. Toe removal for unknown reason and date by either orthopaedic surgery or podiatry, patient could not recall the provider. ALLERGIES: Unknown. CURRENT MEDICATION: - buspirone - carvedilol - vitamin D3 - mirtazapine - Remeron - Xarelto - spironolactone PHYSICAL EXAMINATION: Patient presented comfortably in bed. She appeared to be ambulating with a walker prior to my arrival to urinate without any pain with weightbearing. The patient did not have any tenderness to palpation about her right or left hips. She had a negative log roll to the left or right hips. She had no pain with a pelvic shuck and rock. Her right lower extremity had a 2+ dorsalis pedis and posterior tibialis pulse, she had 5/5 motor strength to the extensor hallucis longus (EHL) and flexor hallucis longus (FHL) today and gastrocnemius musculature. Sensation was intact to light touch to the deep and superficial peroneal, sural, saphenous, and tibial nerve distributions. Regarding her left lower extremity, she had a 2+ dorsalis pedis and posterior tibial pulse, 5/5 motor strength to the EHL, FHL today and gastrocnemius musculature, sensation intact to light to touch to the deep and superficial peroneal, sural, saphenous, and tibial nerve distributions. She has reported using her walker to urinate about an hour before my presentation. Did not appear to be in any discomfort regarding her musculoskeletal system of her lower extremity. IMAGING: She did have an AP pelvis, right hip dedicated x-rays which demonstrated no osseous abnormalities other than a healed previous left superior rami fracture with robust callus and a left inferior pubic rami fracture which appeared to be healed. She did have some cortical irregularities on the x-ray which is likely indicative of a previous healed fracture. She did have a CT of her abdomen and pelvis and right and left hips which demonstrated the same findings with robust callus on the superior and inferior left pubic rami indicative of previous insufficiency fracture that had healed. She did have some remodeling of the S3 cortices on the sagittal view indicative of a previous insufficiency fracture that had undergone appropriate healing. ASSESSMENT: This is an 84-year-old female with chronic but healed left superior and inferior pubic rami fractures as well as an S3 body insufficiency fracture that had healed. At this point in time, there is no acute fractures to be concerned with. PLAN: Plan for this patient would be: 1. Patient will be weightbearing as tolerated bilateral lower extremities with use of walker. 2. Initiate physical therapy for gait ambulation training emphasizing proprioception and balance as well as lower extremity strengthening. 3. Encourage use of walker at home. 4. Please contact orthopaedic surgery for any additional concerns. MARY
== END 2020-03-18 16:09 | disposition home health service (06) | DRG 392 ==
LOC: M ED 07:48 → M ED INP 16:11 → ENRESERV 17:08 → M MS5PR 18:09 → M MSPAV 18:38
PROVIDERS: ADMIT Family Medicine; ATTEND Family Medicine
DX: K57.32 Diverticulitis of large intestine without perforation or abscess without bleeding (principal); I47.1 Supraventricular tachycardia; D68.32 Hemorrhagic disorder due to extrinsic circulating anticoagulants; R31.9 Hematuria, unspecified; J44.9 Chronic obstructive pulmonary disease, unspecified; I27.81 Cor pulmonale (chronic); K58.1 Irritable bowel syndrome with constipation; E83.119 Hemochromatosis, unspecified; I48.91 Unspecified atrial fibrillation; I36.1 Nonrheumatic tricuspid (valve) insufficiency; E80.6 Other disorders of bilirubin metabolism; F32.9 Major depressive disorder, single episode, unspecified; I44.7 Left bundle-branch block, unspecified; K21.9 Gastro-esophageal reflux disease without esophagitis; Z79.01 Long term (current) use of anticoagulants; Z79.899 Other long term (current) drug therapy; Z87.81 Personal history of (healed) traumatic fracture; Z99.81 Dependence on supplemental oxygen; Z20.828 Contact with and (suspected) exposure to other viral communicable diseases

== ENCOUNTER → 2020-04-09 | Outpatient (REF) | payer MEDICARE ==
[~2020-04-09] MED LIST changes: +ACET1TAB55 PO; +CARV6.25 PO; +CIPR-249 PO; +D31000TA2 PO; +METR-265 PO; +MIRT-62 PO; -REME15TA PO; +SPIR-10 PO
== END ==
LOC: M LAB REF 14:48
PROVIDERS: ATTEND Internal Medicine Gastroenterology
DX: R19.7 Diarrhea, unspecified (principal)

== ENCOUNTER → 2020-05-17 | Outpatient (CLI) | payer MEDICARE ==
[~2020-05-17] MED LIST changes: +ESCI10TA16 PO; -ESCI10TA2 PO
--- NOTE | 2020-05-17 09:26 | REP ---
INDICATION: SHORTNESS OF BREATH COMPARISON: 11/25/2019 TECHNIQUE: PA and lateral. FINDINGS: Chronic changes including elevation to the right hemidiaphragm and suspected moderate to large hiatal hernia are again noted. Aerated lung wray are clear and stable. No acute consolidation, effusion, or pneumothorax identified. Skeletal structures demonstrate osteopenia and degenerative changes along with exaggerated kyphosis. IMPRESSION: Chronic stable changes. No acute cardiopulmonary process. If the patient remains symptomatic consider CT for further investigation. <Electronically signed by Armin Sanders > 05/17/20 [id number]
[2020-05-17 09:28] LABS: BASO % 0.6 % (0.0-1.0); EOS % 0.4 % (0.0-3.0); HEMATOCRIT 33.9 % (36.0-47.0); HEMOGLOBIN 11.2 g/dl (12.0-15.5); LYMPH % 28.5 % (24.0-44.0); MEAN CORPUSCULAR HEMOGLOBIN 35.8 pg (27.0-33.0); MEAN CORPUSCULAR VOLUME 108.3 fl (80.0-96.0); MONO # 0.3 10^3/uL (0.0-0.8); MONO % 4.8 % (0.0-5.0); NEUTROPHILS # 4.5 10^3/uL (1.5-8.5); NEUTROPHILS % 65.1 % (36.0-66.0); PLATELET COUNT, AUTOMATED 422 10^3/uL (150-450); RED BLOOD COUNT 3.13 10^6/uL (4.00-5.40); WHITE BLOOD COUNT 6.8 10^3/uL (4.0-10.0)
[2020-05-17 10:28] LABS: ALBUMIN 3.8 GM/DL (3.2-5.2); BILIRUBIN,TOTAL 1.3 MG/DL (0.2-1.0); CALCIUM LEVEL 9.5 MG/DL (8.8-10.2); CREATININE FOR GFR 1.02 MG/DL (0.55-1.30); GLOMERULAR FILTRATION RATE 54.7 (>32); POTASSIUM SERUM 4.3 MEQ/L (3.5-5.1)
== END ==
LOC: M LAB 08:40
PROVIDERS: ATTEND Physician Assistant
DX: R06.02 Shortness of breath (principal); I27.81 Cor pulmonale (chronic)

== ENCOUNTER 2020-07-09 19:49 | Emergency (ER) | payer MEDICARE ==
[~2020-07-09] VITALS: Ht 152.4 cm; Wt 42.1 kg
[2020-07-09 20:35] LABS: BASO % 0.5 % (0.0-1.0); EOS # 0.1 10^3/uL (0.0-0.5); EOS % 1.9 % (0.0-3.0); HEMATOCRIT 29.4 % (36.0-47.0); HEMOGLOBIN 9.7 g/dl (12.0-15.5); LYMPH # 1.5 10^3/uL (1.5-5.0); MEAN CORPUSCULAR HEMOGLOBIN 33.2 pg (27.0-33.0); MEAN CORPUSCULAR VOLUME 100.7 fl (80.0-96.0); MONO # 0.3 10^3/uL (0.0-0.8); MONO % 8.1 % (2.0-8.0); NEUTROPHILS # 2.2 10^3/uL (1.5-8.5); NEUTROPHILS % 53.3 % (36.0-66.0); PLATELET COUNT, AUTOMATED 276 10^3/uL (150-450); RED BLOOD COUNT 2.92 10^6/uL (4.00-5.40); WHITE BLOOD COUNT 4.2 10^3/uL (4.0-10.0)
[2020-07-09 21:11] LABS: ALBUMIN 3.5 GM/DL (3.2-5.2); ALT/SGPT 11 U/L (12-78); BILIRUBIN,DIRECT 0.3 MG/DL (0.0-0.2); BILIRUBIN,TOTAL 1.5 MG/DL (0.2-1.0); BLOOD UREA NITROGEN 11 MG/DL (7-18); CALCIUM LEVEL 9.6 MG/DL (8.8-10.2); CARBON DIOXIDE LEVEL 28 MEQ/L (21-32); CHLORIDE LEVEL 109 MEQ/L (98-107); CK-MB VALUE MASS 1.6 NG/ML (<3.6); CPK CREATINE PHOSPHOKINASE 78 U/L (26-192); CREATININE FOR GFR 0.77 MG/DL (0.55-1.30); GLOMERULAR FILTRATION RATE > 60.0 (>32); GLUCOSE, FASTING 86 MG/DL (70-100); LIPASE 113 U/L (73-393); MB/CK RELATIVE INDEX 2.05 (< OR =4); NT-PRO BNP 787 PG/ML (<450); POTASSIUM SERUM 3.9 MEQ/L (3.5-5.1); SODIUM LEVEL 142 MEQ/L (136-145); TOTAL PROTEIN 6.3 GM/DL (6.4-8.2); TROPONIN I < 0.02 NG/ML (< 0.10)
[2020-07-09 21:45] VITALS: BP 156/74
--- NOTE | 2020-07-09 21:52 | REPVR ---
PROCEDURE INFORMATION: Exam: XR Chest Exam date and time: 07/09/2020 8:31 PM Age: 84 years old Clinical indication: Chest pain TECHNIQUE: Imaging protocol: XR of the chest Views: 1 view. COMPARISON: CR Chest, 2 view PA, Lat 05/17/2020 8:58 AM FINDINGS: Lungs: Unremarkable. No consolidation. No pulmonary edema. Pleural spaces: Unremarkable. No pleural effusion. No pneumothorax. Heart/Mediastinum: There is a persistent large hiatal hernia. No cardiomegaly is noted. Vasculature: There are atherosclerotic calcifications of the aortic arch. Diaphragm: There is a chronically elevated right hemidiaphragm, which is similar in appearance compared to the prior chest x-ray on 05/17/2020. Bones/joints: There is osteoarthritis of both glenohumeral joints and both acromioclavicular joints. There are ossified bodies adjacent to the lateral aspect of the surgical neck of the right humerus and superior aspect of the left glenohumeral joint, which are unchanged compared to the prior chest x-ray on 05/17/2020. There is a moderate levoscoliosis of the thoracolumbar junction. IMPRESSION: 1. No acute findings. 2. Large hiatal hernia, which is similar in appearance compared to the prior chest x-ray on 05/17/2020. 3. Chronically elevated right hemidiaphragm, which is similar in appearance compared to the prior chest x-ray on 05/17/2020. Electronically signed by: Vaughn Guzman On 07/09/2020 21:53:20 PM
[2020-07-09] MEDS ORDERED: FUROSEMIDE 20MG/2ML VIAL (J1940) IV ONE (22:05)
--- NOTE | 2020-07-10 00:37 | ECGEPIP ---
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
== END 2020-07-09 22:30 | disposition home or self-care (01) ==
LOC: M ED 19:49
DX: I50.9 Heart failure, unspecified (principal); R60.0 Localized edema; I44.7 Left bundle-branch block, unspecified; J44.9 Chronic obstructive pulmonary disease, unspecified; I11.0 Hypertensive heart disease with heart failure; I48.91 Unspecified atrial fibrillation; Z99.81 Dependence on supplemental oxygen; Z79.899 Other long term (current) drug therapy; Z79.01 Long term (current) use of anticoagulants; Z87.891 Personal history of nicotine dependence
CPT/HCPCS: 71045; 80048; 80076; 82550; 82553; 83690; 83880; 84484; 85025; 93005; 93041; 94760; 96374; 99285; J1940

== ENCOUNTER 2020-07-17 16:59 | Emergency (ER) | payer MEDICARE ==
[~2020-07-17] VITALS: Ht 152.4 cm; Wt 46.4 kg
--- NOTE | 2020-07-17 18:38 | REPVR ---
PROCEDURE INFORMATION: Exam: CT Head Without Contrast Exam date and time: 07/17/2020 6:20 PM Age: 84 years old Clinical indication: Other: CVA TECHNIQUE: Imaging protocol: Computed tomography of the head without contrast. Radiation optimization: All CT scans at this facility use at least one of these dose optimization techniques: automated exposure control; mA and/or kV adjustment per patient size (includes targeted exams where dose is matched to clinical indication); or iterative reconstruction. COMPARISON: CT Head without contrast 08/27/2018 3:41 PM FINDINGS: Brain: Decreased attenuation of the supratentorial white matter is likely secondary to chronic microvascular ischemia. No acute intracranial hemorrhage. Cerebral ventricles: Ventricular and subarachnoid spaces are age appropriate. Bones/joints: Unremarkable. No acute fracture. Paranasal sinuses: Visualized sinuses are unremarkable. No fluid levels. Mastoid air cells: Visualized mastoid air cells are well aerated. Vasculature: Intracranial vascular calcification. Soft tissues: Unremarkable. IMPRESSION: No acute intracranial abnormality. Electronically signed by: Ramón Peña On 07/17/2020 18:38:12 PM
[2020-07-17 19:41] LABS: HEMATOCRIT 31.9 % (36.0-47.0); HEMOGLOBIN 10.6 g/dl (12.0-15.5); MEAN CORPUSCULAR HEMOGLOBIN 33.7 pg (27.0-33.0); MEAN CORPUSCULAR HGB CONC 33.2 g/dl (32.0-36.5); MEAN CORPUSCULAR VOLUME 101.3 fl (80.0-96.0); PLATELET COUNT, AUTOMATED 352 10^3/uL (150-450); RED BLOOD COUNT 3.15 10^6/uL (4.00-5.40); WHITE BLOOD COUNT 4.5 10^3/uL (4.0-10.0)
[2020-07-17 19:44] LABS: BLOOD UREA NITROGEN 18 MG/DL (7-18); CALCIUM LEVEL 9.6 MG/DL (8.8-10.2); CARBON DIOXIDE LEVEL 35 MEQ/L (21-32); CHLORIDE LEVEL 100 MEQ/L (98-107); CK-MB VALUE MASS 1.2 NG/ML (<3.6); CPK CREATINE PHOSPHOKINASE 59 U/L (26-192); CREATININE FOR GFR 0.97 MG/DL (0.55-1.30); GLUCOSE, FASTING 96 MG/DL (70-100); MB/CK RELATIVE INDEX 2.03 (< OR =4); SODIUM LEVEL 140 MEQ/L (136-145)
[2020-07-17 19:45] LABS: MAGNESIUM LEVEL 1.7 MG/DL (1.8-2.4); TROPONIN I < 0.02 NG/ML (< 0.10)
--- NOTE | 2020-07-17 21:26 | REPVR ---
PROCEDURE INFORMATION: Exam: US Duplex Right Lower Extremity Veins, Limited Exam date and time: 07/17/2020 8:56 PM Age: 84 years old Clinical indication: Pain; Leg, lower; Right; Additional info: R/O dvt TECHNIQUE: Imaging protocol: Real-time Duplex ultrasound of the Right Lower Extremity with 2-D junior scale, color Doppler flow and spectral waveform analysis with image documentation. Limited exam was focused on the right lower extremity veins. COMPARISON: No relevant prior studies available. FINDINGS: Right deep veins: Unremarkable. The common femoral, femoral and popliteal veins are patent without thrombus. Normal Doppler waveforms. Normal compressibility and/or augmentation response. Right superficial veins: Unremarkable. Saphenofemoral junction is patent without thrombus. Soft tissues: Unremarkable. IMPRESSION: No sonographic evidence of deep vein thrombosis. Electronically signed by: Adonis Hidalgo On 07/17/2020 21:26:29 PM
[2020-07-17] MEDS ORDERED: POTASSIUM CHLORIDE 10 MEQ SR TABLET PO ONE (21:35)
[2020-07-17] MEDS ORDERED: MAG SULF 1GM/100ML (MAG RUN) 1 GM in IV 1 EA IV ONE (21:35)
[2020-07-17 22:15] VITALS: BP 138/61
[2020-07-17] MEDS ORDERED: SLOWTAB2 PO (23:07)
--- NOTE | 2020-07-18 01:12 | ECGEPIP ---
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
== END 2020-07-17 23:55 | disposition home or self-care (01) ==
LOC: M ED 16:59
DX: F41.8 Other specified anxiety disorders (principal); E87.6 Hypokalemia; E83.42 Hypomagnesemia; M79.604 Pain in right leg; J44.9 Chronic obstructive pulmonary disease, unspecified; I47.1 Supraventricular tachycardia; I48.91 Unspecified atrial fibrillation; K58.9 Irritable bowel syndrome, unspecified; F33.9 Major depressive disorder, recurrent, unspecified; Z87.891 Personal history of nicotine dependence; Z79.899 Other long term (current) drug therapy; Z79.01 Long term (current) use of anticoagulants
CPT/HCPCS: 70450; 80048; 82550; 82553; 83735; 84484; 85027; 93005; 93971; 96360; 99284; J3475

== ENCOUNTER 2020-08-12 14:46 | Observation (INO) | payer MEDICARE ==
[~2020-08-12] VITALS: Ht 152.4 cm; Wt 42.9 kg
[~2020-08-12 14:46] MED LIST changes: +SLOWTAB2 PO
[2020-08-12] MEDS ORDERED: NS 1,000 ML IV ONE (17:10)
[2020-08-12 17:51] LABS: BASO % 0.6 % (0.0-1.0); EOS % 0.6 % (0.0-3.0); HEMATOCRIT 31.8 % (36.0-47.0); HEMOGLOBIN 10.6 g/dl (12.0-15.5); LYMPH # 2.2 10^3/uL (1.5-5.0); MEAN CORPUSCULAR HEMOGLOBIN 34.2 pg (27.0-33.0); MEAN CORPUSCULAR HGB CONC 33.3 g/dl (32.0-36.5); MEAN CORPUSCULAR VOLUME 102.6 fl (80.0-96.0); MONO # 0.4 10^3/uL (0.0-0.8); MONO % 5.2 % (2.0-8.0); NEUTROPHILS # 4.3 10^3/uL (1.5-8.5); NEUTROPHILS % 62.2 % (36.0-66.0); PLATELET COUNT, AUTOMATED 327 10^3/uL (150-450); WHITE BLOOD COUNT 6.9 10^3/uL (4.0-10.0)
--- NOTE | 2020-08-12 18:00 | REP ---
INDICATION: CHEST PAIN. COMPARISON: 07/09/2020 TECHNIQUE: AP and lateral FINDINGS: There is no significant change from the prior exam. No acute patchy parenchymal opacities or pleural effusions have developed. There is advanced thoracic aortic tortuosity status quo. There is no change in the cardiomediastinal silhouette. There is no significant change in the osseous structures. IMPRESSION: There is no acute cardiopulmonary disease. Or significant change from the prior exam. <Electronically signed by Eben Valle > 08/12/20 [id number]
[2020-08-12 18:01] LABS: INR 1.7; PROTHROMBIN TIME 20.4 SECONDS (12.5-14.3)
[2020-08-12 18:02] LABS: PARTIAL THROMBOPLASTIN TIME 28.4 SECONDS (24.2-38.5)
[2020-08-12 18:48] LABS: ALBUMIN 4.1 GM/DL (3.2-5.2); ALT/SGPT 10 U/L (12-78); BILIRUBIN,DIRECT 0.3 MG/DL (0.0-0.2); BILIRUBIN,TOTAL 1.3 MG/DL (0.2-1.0); CK-MB VALUE MASS 1.1 NG/ML (<3.6); CPK CREATINE PHOSPHOKINASE 25 U/L (26-192); FREE T4 1.53 NG/DL (0.76-1.46); LIPASE 267 U/L (73-393); NT-PRO BNP 363 PG/ML (<450); THYROID STIMULATING HORMONE 0.231 uIU/ML (0.358-3.740); TOTAL PROTEIN 7.1 GM/DL (6.4-8.2); TROPONIN I < 0.02 NG/ML (< 0.10)
[2020-08-12 22:11] LABS: RSV AMPLIFICATION NEGATIVE (NEGATIVE)
[2020-08-12] MEDS ORDERED: FURO20TA2 PO (22:25)
[2020-08-12] MEDS ORDERED: MEGE400S10 PO (22:25)
[2020-08-12] MEDS ORDERED: BUSP15TA47 PO (22:25)
[2020-08-12] MEDS ORDERED: POTA1TAB14 PO (22:25)
[2020-08-12] MEDS ORDERED: SLOWTAB2 PO (22:25)
[2020-08-12] MEDS ORDERED: CARV3.12 PO (22:25)
[2020-08-12] MEDS ORDERED: MIRT-60 PO (22:25)
[2020-08-12] MEDS ORDERED: FERR32TA PO (22:25)
[2020-08-12] MEDS ORDERED: PANT40TA29 PO (22:25)
[2020-08-12] MEDS ORDERED: ACETAMINOPHEN TAB 650MG DOSE (2X325MG) PO PRN (22:30)
[2020-08-12] MEDS ORDERED: MOM 30ML SUSPENSION UDC PO PRN (22:30)
[2020-08-12] MEDS ORDERED: MAALOX 30 ML SUSP *UDC PO PRN (22:30)
--- NOTE | 2020-08-12 23:20 | HPEPDOC ---
[facility] Medical History & Physical Date of Admission Aug 12, 2020 Date of Service: Aug 12, 2020 Attending Physician: PARMINDER COTE MD History and Physical CHIEF COMPLAINT: [84 y/o female c/o weakness x4 days] HISTORY OF PRESENT ILLNESS: [This is an 84 year old female with a pmh of COPD, GERD, A-fib, CHF, hemochromatosis, diverticulitis and VTE who presents complaining of increased weakness x4 days. Patient states that since wednesday, she has noticed that she is increasingly weak and is having extreme difficulty getting around in her apartment. Patient states that at her baseline, she uses a walker, but states that normally she has no issue getting around once she is behind the walker. She states that she feels as though even though she has her walker, she can no longer walk safely. Patient lives alone. Patient also complains of increased SOB that has come along with her weakness. Patient states that even slight activity leaves her short of breath. Patient admits to some chest heaviness when she is acutely short of breath. Patient denies falls, syncope, dizziness, lightheadedness, poor appetite, constipation, diarrhea, nausea, vomiting, abd pain, fever, chills, abnormal weight loss, dysuria, cough, edema. Patient states that she is worried she can longer take care of herself. When a sked about placement at a nursing facility, patient suggested that she would rather stay at home, but is sometimes worried about continuing to live by herself.] PAST MEDICAL HISTORY: 1. See HPI PAST SURGICAL HISTORY: 1. [Right cataract removal]. 2. [Heart catheterization]. 3. [Appendectomy 4. Left oopherectomy ]. SOCIAL HISTORY: Resides in: [apartment, alone] Children: [daughter] Employment: [retired] Tobacco use:[former smoker] ETOH: [denies] Illicit drug use: [denies] FAMILY HISTORY: none pertinent - per patient ALLERGIES: Please see below. REVIEW OF SYSTEMS: CONSTITUTIONAL: [See HPI]. HEENT: [Denies uri sx]. CARDIOVASCULAR: [Denies uri sx]. RESPIRATORY: [Denies uri sx]. GASTROINTESTINAL: [Denies uri sx]. GENITOURINARY: [Denies uri sx]. SKIN: [Denies rash]. MUSCULOSKELETAL: [Denies uri sx]. NEUROLOGICAL: [Denies paresthesias]. HOME MEDICATIONS: Please see below. PHYSICAL EXAMINATION: VITAL SIGNS: Please see below GENERAL APPEARANCE: [this is a frail appearing 84 year old white female. She is mildly short of breath but resting comfortably in bed]. HEENT: [No mass or lesion. EOMI. No scleral icterus or conjunctival erythema. nares patent. Oral mucosa moist and without erythema]. CARDIOVASCULAR: [Regular rate, rhythm. No murmurs, rubs or gallops]. LUNGS: [Decreased breath sounds b/l. No wheezing, rales, rhonchi.]. ABDOMEN: [Soft, non-tender]. MUSCULOSKELETAL: [No joint deformity]. EXTREMITIES: [No edema noted. Pulses intact. No clubbing, cyanosis]. NEUROLOGICAL: [Strength rated as 3/5 in b/l lower extremities. 4/5 in b/l upper extermities. Sensation intact. Speech clear. A+Ox3. No focal deficits]. PSYCHIATRIC: [Depressed mood. Affect appears appropriate]. LABORATORY DATA: See below. IMAGING: [Chest x-ray: FINDINGS: There is no significant change from the prior exam. No acute patchy parenchymal opacities or pleural effusions have developed. There is advanced thoracic aortic tortuosity status quo. There is no change in the cardiomediastinal silhouette. There is no significant change in the osseous structures. IMPRESSION: There is no acute cardiopulmonary disease. Or significant change from the prior exam.] MICROBIOLOGY: Please see below. ASSESSMENT: [This is a frail 84 y/o female with several chronic conditions that appear to be stable at this time. Patient's increased weakness and sob may be regular progression of chronic obstructive pulmonary disease. Patient's workup in ED is grossly normal, save a positive occult stool, mild elevation of cr, and a potassium of 5.2. Patient states several times that she is anxious about her health and mobility.]. . PLAN: 1. [Weakness - Unfortunately seems to be aging process related. - This patient would likely benefit from PT - early childhood education worker on board to help with placement or home health needs - Admit under observation to med surg 2. SOB - Patient markedly sob on exam, but copd exacerbation seems unlikely at this time as she has no abnormal lung sounds, white count, change in sputum, abnormal imaging - CHF exacerbation also seems unlikely as patient appears euvolemic - Will continue patient's at home oxygen 3. + Stool occult - Patient not having any acute abdominal symptoms, major decrease in H/H that would suggest acute bleed - Patient has history of diverticulitis, with a recent admission in july for this issue. This is the most likely the cause - H/H stable 4. Hyperkalemia - Currently 5.2. Patient on at home potassium supplements. Will hold these and monitor. 5. CHF - patient appears euvolemic, possibly on the dry side - Will continue spironolactone, furosemide, carvedilol 6. COPD - continue at home oxygen, as stated 7. hx A-fib - patient not found to be in a-fib at this time - will continue eliquis 8. GERD - continue protonix 9. Hemochromatosis - patient currently on iron supplement, will continue - liver enzymes, h/h stable 10. Anxiety - continue buspar, remeron 11.DVT Prophylaxis - eliquis, as stated]. Vital Signs Vital Signs Date Time Temp Pulse Resp B/P (MAP) Pulse Ox O2 Delivery O2 Flow Rate FiO2 08/12/20 20:55 98.4 73 16 128/60 (82) 97 Room Air Laboratory Data Labs 24H Laboratory Tests 2 08/12/20 17:37: Immature Granulocyte % (Auto) 0.4, Neutrophils (%) (Auto) 62.2, Lymphocytes (%) (Auto) 31.0, Monocytes (%) (Auto) 5.2, Eosinophils (%) (Auto) 0.6, Basophils (%) (Auto) 0.6, Neutrophils # (Auto) 4.3, Lymphocytes # (Auto) 2.2, Monocytes # (Auto) 0.4, Eosinophils # (Auto) 0.0, Basophils # (Auto) 0.0, Nucleated Red Blood Cells % (auto) 0.0, Prothrombin Time 20.4H, Prothromb Time International Ratio 1.70, Activated Partial Thromboplast Time 28.4, Urine Color YELLOW, Urine Appearance CLEAR, Urine pH 5.0, Urine Specific [place] 1.017, Urine Protein NEGATIVE, Urine Glucose (UA) NEGATIVE, Urine Ketones NEGATIVE, Urine Blood NEGATIVE, Urine Nitrite NEGATIVE, Urine Bilirubin NEGATIVE, Urine Urobilinogen 0.2, Urine Leukocyte Esterase NEGATIVE, Urine WBC (Auto) 1, Urine RBC (Auto) 3, Urine Hyaline Casts (Auto) 0, Urine Bacteria (Auto) NEGATIVE, Urine Squamous Epithelial Cells 1, Urine Sperm (Auto) , Total Bilirubin 1.3H, Direct Bilirubin 0.3H, Aspartate Amino Transf (AST/SGOT) 13, Alanine Aminotransferase (ALT/SGPT) 10L, Alkaline Phosphatase 55, Total Creatine Kinase 25L, Creatine Kinase MB 1.1, Creatine Kinase MB Relative Index 4.40H, Troponin I < 0.02, DW-Mxx-U-Type Natriuretic Peptide 363, Total Protein 7.1, Albumin 4.1, Albumin/Globulin Ratio 1.4, Lipase 267, Thyroid Stimulating Hormone (TSH) 0.231L, Free Thyroxine 1.53H 08/12/20 17:45: POC Glucose (Misc Panel) 93, POC Sodium (Misc Panel) 136, POC Potassium (Misc Panel) 5.2H, POC Chloride (Misc Panel) 107, POC Total CO2 (Misc Panel) 23.0, POC Blood Urea Nitrogen (Misc Panel 39H, POC Ionized Calcium (Misc Panel) 5.3, POC Creatinine (Misc Panel) 1.3, POC Hematocrit (Misc Panel) 32.0L 08/12/20 17:47: POC Troponin I (Misc) 0.01 08/12/20 21:08: Coronavirus (COVID-19)(PCR) NEGATIVE, Influenza Type A (RT-PCR) NEGATIVE, Influenza Type B (RT-PCR) NEGATIVE, Respiratory Syncytial Virus (PCR) NEGATIVE CBC/BMP Laboratory Tests 08/12/20 17:37 Home Medications Scheduled Buspirone HCl (Buspirone HCl) 15 Mg Tablet, 15 MG PO BID Carvedilol (Carvedilol) 3.125 Mg Tablet, 6.25 MG PO BID Cholecalciferol (Vitamin D3) (Vitamin D3) 1,000 Unit Tablet, 1,000 UNITS PO QPM TAKES AT DINNER Ferrous Gluconate (Ferrous Gluconate) 324 Mg Tablet, 324 MG PO BID Furosemide (Furosemide) 20 Mg Tablet, 20 MG PO QPM TAKES AT DINNER Magnesium Chloride (Slow-Mag) 71.5 Mg Tablet.dr, 1 TAB PO BID Megestrol Acetate (Megestrol Acetate) 400 Mg/10 Ml Oral.susp, 400 MG PO DAILY Mirtazapine (Remeron) 30 Mg Tablet, 30 MG PO QPM TAKES AT DINNER Pantoprazole Sodium (Pantoprazole Sodium) 40 Mg Tablet.dr, 40 MG PO DAILY Potassium Chloride (Potassium Chloride) 20 Meq Tablet.er, 20 MEQ PO DAILY Rivaroxaban (Xarelto) 20 Mg Tablet, 20 MG PO QPM TAKES AT DINNER Spironolactone (Spironolactone) 25 Mg Tablet, 12.5 MG PO QPM TAKES AT DINNER Allergies Coded Allergies: No Known Allergies (Unverified , 07/09/20) A-FIB/CHADSVASC A-FIB History Current/History of A-Fib/PAF?: Yes Current PO Anticoag Therapy: Yes LAYLA LAINEZ Aug 12, 2020 23:20
[2020-08-13] VITALS (8 sets, daily range): BP systolic 88–123; BP diastolic 34–59; O2SAT 97–98
[2020-08-13] MEDS ORDERED: PILL CUTTER 1 EACH XX PRN (00:50)
[2020-08-13] MEDS: MIRTAZAPINE 15 MG TAB PO SCH ×2 (00:54→20:06)
[2020-08-13] MEDS: VITAMIN D 1,000 INTERNATIONAL UNITS TABLET PO SCH ×2 (00:55→20:05)
[2020-08-13] MEDS: FERROUS GLUCONATE 324 MG TAB PO SCH ×3 (00:55→20:05)
[2020-08-13] MEDS: CARVedilol 3.125 MG TAB PO SCH ×3 (00:56→20:15)
[2020-08-13] MEDS: FUROSEMIDE 20 MG TAB PO SCH ×2 (00:56→21:00)
[2020-08-13] MEDS: busPIRone 5 MG TAB PO SCH ×3 (00:57→20:06)
[2020-08-13] MEDS: RIVAROXABAN 20 MG TAB (XARELTO) PO SCH ×2 (00:57→18:39)
[2020-08-13] MEDS ORDERED: SODIUM CHLORIDE 0.9% 1000ML IV ONE (01:45)
--- NOTE | 2020-08-13 02:45 | ECGEPIP ---
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
[2020-08-13 07:03] LABS: HEMOGLOBIN 10.1 g/dl (12.0-15.5); MEAN CORPUSCULAR HEMOGLOBIN 34.4 pg (27.0-33.0); MEAN CORPUSCULAR HGB CONC 33.7 g/dl (32.0-36.5); PLATELET COUNT, AUTOMATED 297 10^3/uL (150-450); RED BLOOD COUNT 2.94 10^6/uL (4.00-5.40); WHITE BLOOD COUNT 6.7 10^3/uL (4.0-10.0)
[2020-08-13 07:16] LABS: ALBUMIN 3.8 GM/DL (3.2-5.2); BILIRUBIN,TOTAL 1.1 MG/DL (0.2-1.0); CALCIUM LEVEL 9.6 MG/DL (8.8-10.2); CREATININE FOR GFR 0.99 MG/DL (0.55-1.30); GLOMERULAR FILTRATION RATE 56.6 (>32); TOTAL PROTEIN 6.4 GM/DL (6.4-8.2)
[2020-08-13] MEDS: PANTOPRAZOLE 40MG TAB (PROTONIX) PO SCH (08:07)
[2020-08-13] MEDS: DOCUSATE SODIUM 100MG CAPSULE PO SCH ×2 (08:07→20:05)
[2020-08-13 10:50] LABS: FREE T3 2.6 PG/ML (2.2-4.0)
--- NOTE | 2020-08-13 14:57 | IPNPDOC ---
Text Note Date of Service The patient was seen on 08/13/20. NOTE S Patient reported this morning when she ambulated to bathroom with aide, she continue to feel fatigued and weak. She described light-headedness, palpitation and feeling of "sick to the stomach and everything rushes to my head." Symptoms improved upon patient returning to bed and laying down. Overnight, telemetry revealed patient was in SVT at 0306 and patient was symptomatic at that time as well, reporting palpitation. O VITAL SIGNS: See below GENERAL APPEARANCE: Revealed frail 84 y/o F sitting on bed with head elevated, Alert & oriented, No Acute Distress. HEENT Exam: Normocephalic and atraumatic, PERRLA, conjunctiva & lids normal, EOMI, without sclera icteric, mucous membr. moist/pink, pharynx normal, nares patent. NECK: Supple without lymphadenopathy, JVD, thyromegaly LUNGS: Clear to auscultation bilaterally with full breath sounds without rales, wheezing, and crackles. CARDIOVASCULAR: Regular rate and rhythm, normal S1 & S2 without gallops, murmurs, rubs ABDOMEN: Soft, non-tender, non-distended with normal bowel sounds. No masses or ecchymosis or hepatosplenomegaly. EXTREMITIES: 2+ pulses in all extremities. L second toe amputated. No clubbing, cyanosis, edema, tenderness SKIN: Normal turgor and temperature. No rash, lesion MUSCULOSKELETAL: Strength +5/5 in all extremities without tenderness. Levoscoliosis and kyphosis noted. NEUROLOGICAL: Normal speech with intact sensation, no signs of gross focal neurological deficit. PSYCHIATRIC: Normal mood and affect ASSESSMENT: Patient is an 84 y/o F with hx paroxysmal SVT, A-fib (on xarelto), COPD (uses 2L/min O2 via NC nightly), hemochromatosis and depression, presenting to the ED with increased weakness/ light headedness (especially upon standing) with associated chest pressure and palpitation since last Wednesday. ED workup significant for elevated potassium of 5.2. Trop, EKG CXR, BNP were unremarkable for acute events. Upon admission, patient's potassium supplement was held overnight and her K improved to 4.0. Her symptoms are suspected to be 2/2 chronic deconditioning and orthostatic hypotension due to reduce fluid intake at this time. She developed an episode of SVT overnight that appears to be a chronic finding for her per Dr. Ovalle's consult note in 2016. Patient requires PT/OT to determine if she needs additional assistance at home or eligibility for usp care facility. PLAN: 1. Weakness - Suspected to be 2/2 chronic deconditioning and orthostatic hypotension - Nursing order placed for orthostat assessment - PT/OT to evaluate patient need for usp care. - paste up worker on board to help with placement or home health needs 2. Palpitation with hx of paroxysmal SVT - paroxysmal SVT appears chronic per Dr. Ovalle's note (cardiology) in 2016. - Cont to monitor 3. Hyperkalemia, resolved - Improved from 5.2 to 4.0 after holding potassium supplement - Cont to hold potassium supplement, daily BMP and replete as needed 4. Hyperthyroidism - Patient's TSH has been trending down for the past 3 years, currently low at 0.231 - T4 high at 1.53 - Repeat TSH tomorrow am. 5. Macrocytic Anemia with hx of hemochromatosis - Patient reported hx of hemochromatosis, was tested on 07/06/2001 per medical records - Hgb currently 10.1, baseline of 11 for the past few years, with macrocytosis MCV 102.0. - Will need to check folate, iron, and B12 outpatient - Cont iron supplementation. 6. CHF - patient appears mildly dehydrated - Encouraged patient to increase fluid intake - Will continue spironolactone, furosemide, carvedilol and monitor volume status 7. COPD - continue oxygen 2L/min nightly (home regimen), as stated 8. hx A-fib - Telemetry overnight showed patient in normal sinus rhythm with 1 episode of SVT - paroxysmal SVT appears chronic per Dr. Ovalle's note in 2016. - will continue xarelto 9. GERD - continue protonix 10. Anxiety - continue buspar, remeron 11.DVT Prophylaxis - Patient already on Xarelto Diet: regular VS,Fishbone, I+O VS, Fishbone, I+O Laboratory Tests 08/12/20 17:37 08/13/20 06:40 Vital Signs Date Time Temp Pulse Resp B/P (MAP) Pulse Ox O2 Delivery O2 Flow Rate FiO2 08/13/20 08:09 74 109/54 08/13/20 06:00 97.4 20 95 Nasal Cannula 2.0 I&O- Last 24 Hours up to 6 AM 08/13/20 06:00 Intake Total 1750 ml Output Total 800 ml Balance 950 ml GME ATTESTATION GME ATTESTATION My faculty preceptor for this patient encounter was physically present during the encounter and was fully available. All aspects of the patient interview, examination, medical decision making process, and medical care plan development were reviewed and approved by the faculty preceptor. The faculty preceptor is aware and concurs with the plan as stated in the body of this note and will attest to such by his/her cosignature. ATTENDING NOTE I, Ubaldo Bennett MD, have independently examined this patient and performed my own physical exam, as well as reviewed the documentation and edited where necessary. I have discussed in detail with the resident / student the findings and plan of treatment as documented by the resident / student and edited their note. I agree with their findings and treatment plan and have edited their documentation. BAILEE PAK OMS-3 Aug 13, 2020 11:51 UBALDO BENNETT MD Aug 16, 2020 15:49
[2020-08-13] MEDS ORDERED: NS 1,000 ML IV ONE (20:50)
[2020-08-13] MEDS ORDERED: SPIRONOLACTONE 25 MG TAB PO SCH (21:00)
[2020-08-13] MEDS ORDERED: CARVedilol 3.125 MG TAB PO ONE (21:00)
--- NOTE | 2020-08-14 00:25 | ECGEPIP ---
[facility] Test Date: 2020-08-13 Pat Name: KILEY THRASHER Department: Room: [place] [address] Gender: Female Spanish Medical Interpreter: ANALY : 1935 Requested By: LAYLA Partida Order Number: [id number] Reading MD: Speedy Purcell Measurements Intervals [place] Rate: 78 P: 53 NM: 172 QRS: -41 QRSD: 126 T: 77 QT: 398 QTc: 453 Interpretive Statements Normal sinus rhythm Left axis deviation Left bundle branch block Compared to prior tracings (3) in the system, LEFT BUNDLE BRANCH BLOCK is old Electronically Signed on 08-14-2020 0:25:20 EDT by Speedy Purcell
[2020-08-14 02:00] VITALS: BP 103/50
[2020-08-14 06:00] VITALS: BP_SYST 100; BP_SYST 110; BP_SYST 92; BP_SYST 97; BP_DIAS 46; BP_DIAS 48; BP_DIAS 52
[2020-08-14 06:25] LABS: HEMATOCRIT 28.6 % (36.0-47.0); HEMOGLOBIN 9.3 g/dl (12.0-15.5); MEAN CORPUSCULAR HEMOGLOBIN 33.6 pg (27.0-33.0); MEAN CORPUSCULAR HGB CONC 32.5 g/dl (32.0-36.5); MEAN CORPUSCULAR VOLUME 103.2 fl (80.0-96.0); PLATELET COUNT, AUTOMATED 283 10^3/uL (150-450); RED BLOOD COUNT 2.77 10^6/uL (4.00-5.40); WHITE BLOOD COUNT 7.4 10^3/uL (4.0-10.0)
[2020-08-14 06:53] LABS: ALBUMIN 3.5 GM/DL (3.2-5.2); BILIRUBIN,TOTAL 0.9 MG/DL (0.2-1.0); CALCIUM LEVEL 9.3 MG/DL (8.8-10.2); MAGNESIUM LEVEL 1.8 MG/DL (1.8-2.4); POTASSIUM SERUM 4.2 MEQ/L (3.5-5.1); THYROID STIMULATING HORMONE 0.35 uIU/ML (0.358-3.740); TOTAL PROTEIN 5.8 GM/DL (6.4-8.2)
[2020-08-14] MEDS: busPIRone 5 MG TAB PO SCH (08:08)
[2020-08-14] MEDS: PANTOPRAZOLE 40MG TAB (PROTONIX) PO SCH (08:08)
[2020-08-14] MEDS: FERROUS GLUCONATE 324 MG TAB PO SCH (08:08)
[2020-08-14] MEDS: DOCUSATE SODIUM 100MG CAPSULE PO SCH (08:08)
[2020-08-14 08:12] VITALS: BP 121/55
[2020-08-14] MEDS ORDERED: CARVedilol 3.125 MG TAB PO SCH (09:00)
[2020-08-14 10:00] VITALS: BP 99/69
[2020-08-14] MEDS ORDERED: CARV3.12 PO (11:04)
--- NOTE | 2020-08-14 16:51 | DS.PDOC ---
Discharge Summary General Date of Admission Aug 12, 2020 at 14:47 Date of Discharge 08/14/2020 Attending Physician: UBALDO LEAVITT MD Discharge Summary PROCEDURES PERFORMED DURING STAY: [None]. ADMITTING DIAGNOSES: 1. Weakness 2. SOB 3. + Stool occult 4. Hyperkalemia 5. CHF 6. COPD 7. hx A-fib 8. GERD 9. Hemochromatosis 10. Anxiety DISCHARGE DIAGNOSES: 1. Weakness 2. Palpitation with hx of paroxysmal SVT 3. Hyperkalemia, resolved 4. Low TSH with elevated T4 5. Macrocytic Anemia with hx of hemochromatosis 6. CHF 7. COPD 8. hx A-fib 9. GERD 10. Anxiety COMPLICATIONS/CHIEF COMPLAINT: Weakness. HISTORY OF PRESENT ILLNESS: Patient is an 84 y/o F with hx paroxysmal SVT, A-fib (on xarelto), COPD (uses 2L/min O2 via NC nightly), hemochromatosis and depression, presenting to the ED with increased weakness/ light headedness (especially upon standing) with associated chest pressure and palpitation since last Wednesday. Patient reported her light-headedness became so severe that she had to sit down multiple times to take breaks while trying to brush her teeth. Patient uses a walker at baseline and lives alone with daughter 5 minutes away. She also reported associated SOB and chest heaviness with her light-headedness but denied falls, syncope, constipation, diarrhea, nausea, vomiting, abd pain, fever, chills, abnormal weight loss and urinary symptoms. HOSPITAL COURSE: In the ED, patient's workup was significant for elevated potassium of 5.2. Her EKG, CXR, BNP were unremarkable. Upon admission, patient's potassium supplement was held and her K improved to 4.0. Tropx2 were negative. Her symptoms are suspected to be 2/2 polypharmacy and hypotension, in combination with reduce fluid intake. Orthostatic hypotension assessment was performed and patient's BP dropped from 100/52 supine to 88/48 standing, but did not meet criteria for orthostatic hypotension. Patient was treated with normal saline and responded well. Her telemetry revealed patient mostly in sinus rhythm with episodes of paroxysmal SVT that resolves spontaneously. This appears to be a chronic finding for her per Dr. Ovalle's consult note in 2015. Patient's other home medication were continued and she continued her home oxygen regimen of 2L/min nightly for COPD during her hospital stay. PT assessed patient and recommended home PT and deemed patient safe for discharge home. Patient was DNR/DNI and signed MOLST form during this visit. At the day of discharge, patient reported she has been able to ambulate with walker to use bedside commode without dizziness or light-headedness. Her CP and dyspnea have also resolved. She had good appetite and denied fever, chills, N/V/D, constipation and urinary symptoms. On discharge, patient's PM lasix, spironolactone, potassium supplement were discontinued, and her carvedilol was halved to 3.125mg BID due to the attribution of her symptoms to polypharmacy and hypotension. It is suggested that patient's PCP should be cautious and restart her diuretic regimen one medication at a time for her heart failure to prevent symptoms recurrence. In addition, it was also noted that patient's TSH has been gradually declining for the past few years and low at 0.231 during admission. A repeat TSH showed improvement to 0.35 but patient remained asymptomatic. Will require follow up outpatient to continue trending. In addition, patient has hx of hemochromatosis but is currently on iron supplement and found with macrocytic anemia (Hgb 10.1, MCV 103.2), will require outpatient workup including folate and B12. DISCHARGE MEDICATIONS: Please see below. ALLERGIES: Please see below. PHYSICAL EXAMINATION ON DISCHARGE: VITAL SIGNS: See below GENERAL APPEARANCE: Revealed frail 84 y/o F sitting on bed with head elevated, Alert & oriented, No Acute Distress. HEENT Exam: Normocephalic and atraumatic, PERRLA, conjunctiva & lids normal, EOM I, without sclera icteric, mucous membr. moist/pink, pharynx normal, nares patent. NECK: Supple without lymphadenopathy, JVD, thyromegaly LUNGS: Clear to auscultation bilaterally with full breath sounds without rales, wheezing, and crackles. CARDIOVASCULAR: Regular rate and rhythm, normal S1 & S2 without gallops, murmurs, rubs ABDOMEN: Soft, non-tender, non-distended with normal bowel sounds. No masses or ecchymosis or hepatosplenomegaly. EXTREMITIES: 2+ pulses in all extremities. L second toe amputated. No clubbing, cyanosis, edema, tenderness SKIN: Normal turgor and temperature. No rash, lesion MUSCULOSKELETAL: Strength +5/5 in all extremities without tenderness. Levoscoliosis and kyphosis noted. NEUROLOGICAL: Normal speech with intact sensation, no signs of gross focal neurological deficit. PSYCHIATRIC: Normal mood and affect LABORATORY DATA: Please see below. IMAGIN. Chest x-ray . IMPRESSION: There is no acute cardiopulmonary disease. Or significant change from the prior exam PROGNOSIS: Fair ACTIVITY: As tolerated DIET: Regular DISCHARGE PLAN: At the day of discharge, patient reported she has been able to ambulate with walker to use bedside commode without dizziness or light- headedness. Her CP and dyspnea have also resolved. She had good appetite and denied fever, chills, N/V/D, constipation and urinary symptoms. On discharge, patient's PM lasix, spironolactone, potassium supplement were discontinued, and her carvedilol was halved to 3.125mg BID due to the attribution of her symptoms to polypharmacy and hypotension. It is suggested that patient's PCP should be cautious and restart her diuretic regimen one medication at a time for her heart failure to prevent symptoms recurrence. In addition, it was also noted that patient's TSH has been gradually declining for the past few years and low at 0.231 during admission. A repeat TSH showed improvement to 0.35 but patient remained asymptomatic. Will require follow up outpatient to continue trending. In addition, patient has hx of hemochromatosis but is currently on iron supplem ent and found with macrocytic anemia (Hgb 10.1, MCV 103.2), will require outpatient workup including folate and B12. DISPOSITION: 01 Home, Self-Care. DISCHARGE INSTRUCTIONS: 1. Please stop taking your furosemide, spironolactone and potassium 2. Please reduce your carvedilol to 3.25mg twice daily 3. Please follow up with your primary care physician in 1 week 4. Please return to the emergency room if your symptoms worsens. ITEMS TO FOLLOWUP ON ON OUTPATIENT: 1. None DISCHARGE CONDITION: Stable TIME SPENT ON DISCHARGE: Greater than 30 minutes. Vital Signs/I&Os Vital Signs Date Time Temp Pulse Resp B/P (MAP) Pulse Ox O2 Delivery O2 Flow Rate FiO2 08/14/20 10:00 97.9 76 18 99/69 (79) 98 Room Air 08/13/20 22:00 2.0 I&O- Last 24 Hours up to 6 AM 08/14/20 06:00 Intake Total 1035 ml Output Total 800 ml Balance 235 ml Laboratory Data Labs 24H Laboratory Tests 2 08/14/20 05:28: Nucleated Red Blood Cells % (auto) 0.0, Anion Gap 5L, Glomerular Filtration Rate 56.0, Calcium Level 9.3, Magnesium Level 1.8, Total Bilirubin 0.9, Aspartate Amino Transf (AST/SGOT) 8, Alanine Aminotransferase (ALT/SGPT) 7L, Alkaline Phosphatase 48, Total Protein 5.8L, Albumin 3.5, Albumin/Globulin Ratio 1.5, Thyroid Stimulating Hormone (TSH) 0.350L CBC/BMP Laboratory Tests 08/14/20 05:28 Discharge Medications Scheduled Buspirone HCl (Buspirone HCl) 15 Mg Tablet, 15 MG PO BID, (Reported) Carvedilol (Carvedilol) 3.125 Mg Tablet, 3.125 MG PO BID Cholecalciferol (Vitamin D3) (Vitamin D3) 1,000 Unit Tablet, 1,000 UNITS PO QPM, (Reported) TAKES AT DINNER Ferrous Gluconate (Ferrous Gluconate) 324 Mg Tablet, 324 MG PO BID, (Reported) Magnesium Chloride (Slow-Mag) 71.5 Mg Tablet.dr, 1 TAB PO BID, (Reported) Megestrol Acetate (Megestrol Acetate) 400 Mg/10 Ml Oral.susp, 400 MG PO DAILY, (Reported) Mirtazapine (Remeron) 30 Mg Tablet, 30 MG PO QPM, (Reported) TAKES AT DINNER Pantoprazole Sodium (Pantoprazole Sodium) 40 Mg Tablet.dr, 40 MG PO DAILY, (Reported) Rivaroxaban (Xarelto) 20 Mg Tablet, 20 MG PO QPM, (Reported) TAKES AT DINNER Allergies Coded Allergies: No Known Allergies (Unverified , 07/09/20) GME ATTESTATION GME ATTESTATION My faculty preceptor for this patient encounter was physically present during the encounter and was fully available. All aspects of the patient interview, examination, medical decision making process, and medical care plan development were reviewed and approved by the faculty preceptor. The faculty preceptor is aware and concurs with the plan as stated in the body of this note and will attest to such by his/her cosignature. ATTENDING NOTE I, Ubaldo Leavitt MD, have independently examined this patient and performed my own physical exam, as well as reviewed the documentation and edited where necessary. I have discussed in detail with the resident / student the findings and plan of treatment as documented by the resident / student and edited their note. I agree with their findings and treatment plan and have edited their documentation. Total time spent on this patient including coordination of care, review of chart documentation and actual patient contact is around 35 minutes BAILEE PAK OMS-3 Aug 14, 2020 16:50 UBALDO LEAVITT MD Aug 16, 2020 15:52
== END 2020-08-14 14:10 | disposition home or self-care (01) ==
LOC: M ED 14:46 → M ED INP 14:47 → ENRESERV 23:01 → M MSPAV 08-13 00:25
PROVIDERS: ADMIT Family Medicine; ATTEND Internal Medicine
DX: R53.1 Weakness (principal); R00.2 Palpitations; E87.5 Hyperkalemia; R94.6 Abnormal results of thyroid function studies; D53.9 Nutritional anemia, unspecified; Z86.2 Personal history of diseases of the blood and blood-forming organs and certain disorders involving the immune mechanism; I47.1 Supraventricular tachycardia; I50.9 Heart failure, unspecified; J44.9 Chronic obstructive pulmonary disease, unspecified; K21.9 Gastro-esophageal reflux disease without esophagitis; F41.9 Anxiety disorder, unspecified; I48.91 Unspecified atrial fibrillation; E83.119 Hemochromatosis, unspecified; K57.32 Diverticulitis of large intestine without perforation or abscess without bleeding; Z87.891 Personal history of nicotine dependence; Z99.81 Dependence on supplemental oxygen; R06.02 Shortness of breath; R42 Dizziness and giddiness; R07.89 Other chest pain; R26.2 Difficulty in walking, not elsewhere classified; Z99.89 Dependence on other enabling machines and devices; Z79.899 Other long term (current) drug therapy; Z79.01 Long term (current) use of anticoagulants
CPT/HCPCS: 36415; 71046; 80047; 80053; 80076; 81001; 82550; 82553; 83690; 83735; 83880; 84439; 84443; 84481; 84484; 85025; 85027; 85610; 85730; 87631; 93005; 96360; 96361; 97161; 97166; 97530; 99284; G0378

== ENCOUNTER 2020-09-29 18:06 | Inpatient (IN) | payer MEDICARE ==
[~2020-09-29] VITALS: Ht 152.4 cm; Wt 44.4 kg
[~2020-09-29 18:06] MED LIST changes: +BUSP15TA47 PO; +FERR32TA PO; +FURO20TA2 PO; +MEGE400S10 PO; +MIRT-60 PO; +PANT40TA29 PO; +POTA1TAB14 PO
[2020-09-29] MEDS ORDERED: SPIR-10 (18:33)
[2020-09-29] MEDS ORDERED: MIRT-60 (18:33)
[2020-09-29 19:43] LABS: BASO % 0.7 % (0.0-1.0); EOS % 0.7 % (0.0-3.0); LYMPH # 1.3 10^3/uL (1.5-5.0); LYMPH % 28.3 % (24.0-44.0); MEAN CORPUSCULAR HEMOGLOBIN 33.9 pg (27.0-33.0); MEAN CORPUSCULAR VOLUME 109.5 fl (80.0-96.0); MONO # 0.2 10^3/uL (0.0-0.8); MONO % 5.1 % (2.0-8.0); NEUTROPHILS # 2.9 10^3/uL (1.5-8.5); NEUTROPHILS % 64.8 % (36.0-66.0); PLATELET COUNT, AUTOMATED 372 10^3/uL (150-450); RED BLOOD COUNT 1.68 10^6/uL (4.00-5.40); WHITE BLOOD COUNT 4.5 10^3/uL (4.0-10.0)
[2020-09-29 19:47] LABS: HEMATOCRIT 18.4 % (36.0-47.0); HEMOGLOBIN 5.7 g/dl (12.0-15.5)
[2020-09-29 19:54] LABS: INR 1.24; PROTHROMBIN TIME 15.9 SECONDS (12.5-14.3)
[2020-09-29 20:21] LABS: ALBUMIN 3.5 GM/DL (3.2-5.2); BILIRUBIN,DIRECT 0.2 MG/DL (0.0-0.2); BILIRUBIN,TOTAL 0.7 MG/DL (0.2-1.0); CALCIUM LEVEL 9.4 MG/DL (8.8-10.2); CREATININE FOR GFR 1.17 MG/DL (0.55-1.30); GLOMERULAR FILTRATION RATE 46.7 (>32); POTASSIUM SERUM 4.3 MEQ/L (3.5-5.1)
[2020-09-29] MEDS ORDERED: CARV3.12 PO (20:21)
[2020-09-29] MEDS ORDERED: ISOVUE-370 76% 100ML VIAL As Ordered ONE (20:43)
[2020-09-29 21:09] VITALS: BP 138/89
--- NOTE | 2020-09-29 21:14 | REPVR ---
PROCEDURE INFORMATION: Exam: CT Abdomen And Pelvis With Contrast Exam date and time: 09/29/2020 8:46 PM Age: 84 years old Clinical indication: Nausea; Additional info: Nausea, malaise TECHNIQUE: Imaging protocol: Computed tomography of the abdomen and pelvis with contrast. Radiation optimization: All CT scans at this facility use at least one of these dose optimization techniques: automated exposure control; mA and/or kV adjustment per patient size (includes targeted exams where dose is matched to clinical indication); or iterative reconstruction. Contrast material: ISOVUE 370; Contrast volume: 100 ml; Contrast route: INTRAVENOUS (IV); COMPARISON: CT ABD/PEL W/IV ORAL CONTRAS 03/15/2020 11:09 AM FINDINGS: Lungs: Mild bilateral lower lobe fibro-atelectatic change with minimal bibasilar bullous change. Mediastinal space: Moderate hiatal hernia. Diaphragm: Elevation of the right hemidiaphragm. Liver: Small hepatic cyst adjacent to the gallbladder measuring 13 mm which is unchanged from the prior study. Gallbladder and bile ducts: Normal. No calcified stones. No ductal dilation. Pancreas: Slight distention of the pancreatic duct measuring up to 5 mm which extends to the ampulla with no cut off. Spleen: Normal. No splenomegaly. Adrenal glands: Normal. No mass. Kidneys and ureters: There are right renal cysts measuring up to 3.5 cm with a Hounsfield measurement of -8 which are redemonstrated and similar to the prior study. Stomach and bowel: There is colonic diverticulosis, greatest in the sigmoid without evidence of diverticulitis. Appendix: There are no changes of appendicitis. A normal appendix is not seen. Intraperitoneal space: Unremarkable. No free air. No significant fluid collection. Vasculature: There is mild calcification of the abdominal aorta with extension into the iliac arteries. Lymph nodes: Unremarkable. No enlarged lymph nodes. Urinary bladder: Unremarkable as visualized. Reproductive: Unremarkable as visualized. Bones/joints: Levoscoliosis centered at L1. Diffuse decreased height and inferior endplate depression of L5 which is new since the prior study. Lumbar facet arthropathy. Soft tissues: Unremarkable. IMPRESSION: 1. 1.Colonic diverticulosis with resolution of sigmoid diverticulitis since 03/15/2020. 2. Interval compression of L5 with inferior endplate depression and decreased height which is of uncertain age. 3. Moderate hiatal hernia. 4. Mild bilateral lower lobe fibro-atelectatic change which appears to be similar to the prior study. 5. Slight distention of the pancreatic duct to the level of the ampulla measuring 5 mm which is slightly increased since the prior study. Electronically signed by: Germán Headley On 09/29/2020 21:14:38 PM
[2020-09-29 21:24] VITALS: BP 117/51
[2020-09-29 21:29] LABS: RSV AMPLIFICATION NEGATIVE (NEGATIVE)
[2020-09-29] MEDS ORDERED: FUROSEMIDE 20MG/2ML VIAL (J1940) IV ONE (21:55)
--- NOTE | 2020-09-29 22:01 | HPEPDOC ---
[facility] Medical History & Physical Date of Admission September 29, 2020 Date of Service: September 29, 2020 History and Physical CHIEF COMPLAINT: weakness, lethargy HISTORY OF PRESENT ILLNESS: 84 yo F with a PMHx of COPD on 2L/min O2, Afib/SVT on xarelto, cor pulmonale, presented to ER c/o weakness and fatigue for several weeks and an episode of BRBPR 3 days ago without further bowel movements since. On arrival to ER, Hgb 5.7. Stool occult positive in ER. CT abdomen was ordered and is pending. 1 unit of pRBC was ordered in ER. Patient will be admitted to hospitalist service for workup of acute blood loss anemia due to GI bleed. PAST MEDICAL HISTORY: COPD GERD Afib Paroxysmal SVT Cor pulmonale Non rheumatic valvular disease, Mitral and Aortic valve insuffiency Hemochromatosis Diverticulitis VTE PAST SURGICAL HISTORY: R cataract coronary angiogram Appendectomy L oophorectomy EGD in [address] Linn, large hiatal hernia SOCIAL HISTORY: Former smoker Patient denies etoh use Patient denies illicit drug use ALLERGIES: Please see below. REVIEW OF SYSTEMS: 10 point ROS was performed, relevant findings are noted in the HPI HOME MEDICATIONS: Please see below. PHYSICAL EXAMINATION: VITAL SIGNS: please see below General: NAD, comfortable HEENT: PERRLA, EOMI, sclerae clear Neck: supple, normal ROM, no JVD Respiratory: lungs CTAB, no wheeze, no rales, no crackles CVS: RRR, normal S1, S2, no murmurs Abdo: soft, no masses, no hepatosplenomegaly, BS+, no rebound tenderness Extremities: no edema, pulses 2+ MSK: no joint deformities, normal ROM Neuro: no focal neuro deficits, moving all 4 extremities, CN2-12 intact. Strength 5/5 in all 4 extremities. No nystagmus. Psych: calm, cooperative, AAO x 3 LABORATORY DATA: See below. IMAGING: CT abdomen pelvis w IV contrast (09/29/20): 1. 1.Colonic diverticulosis with resolution of sigmoid diverticulitis since 03/15/2020. 2. Interval compression of L5 with inferior endplate depression and decreased height which is of uncertain age. 3. Moderate hiatal hernia. 4. Mild bilateral lower lobe fibro-atelectatic change which appears to be similar to the prior study. 5. Slight distention of the pancreatic duct to the level of the ampulla measuring 5 mm which is slightly increased since the prior study. MICROBIOLOGY: Please see below. ASSESSMENT: 84 yo F with a PMHx of COPD on 2L/min O2, Afib/SVT on xarelto, cor pulmonale, presented to ER c/o weakness and fatigue for several weeks and an episode of BRBPR 3 days ago without further bowel movements since. On arrival to ER, Hgb 5.7. Stool occult positive in ER. CT abdomen was ordered and is pending. 1 unit of pRBC was ordered in ER. Patient will be admitted to hospitalist steve huerta for workup of acute blood loss anemia due to GI bleed. . PLAN: #Acute blood loss anemia 2/2 gastrointestinal bleeding #Weakness -Patient c/o weakness and lethargy for several weeks -Developed BRBPR 3 days ago, no further BM -Hgb 5.7 on arrival. 1 unit pRBC ordered in ER -Order additional 2 units, transfuse total of 2 -Hold xarelto -patient has expressed that she does not want to receive a colonoscopy or upper endoscopy. -Pantoprazole 40 mg IV bid -Monitor CBC q12h # R heart failure/cor pulmonale -lung bases have slight crackles, otherwise remains clinically euvolemic -resume spironolactone, furosemide, carvedilol in setting of symptomatic acute GIB -will give one dose of IV lasix 20 mg during blood transfusion # COPD - O2 dependent at 2L/min at home - appears stable, resume home inhalers #Chronic atrial fibrillation/pSVT - EKG shows NSR - hold xarelto in setting GI bleed - patient has significant concerns regarding risk of CVA. Agrees with need to hold xarelto at this time. #GERD - on protonix #Hx of hemochromatosis - check iron, b12, folate #dilation of pancreatic duct on CT - slight distension of pancreatic duct to level of the ampulla measuring 5 mm, slightly increased from prior study - consider MR abdomen in am #Anxiety - continue buspar, remeron Dispo: admission expect to last > 2 midnights CODE STATUS: DNR/DNI Vital Signs Vital Signs Date Time Temp Pulse Resp B/P (MAP) Pulse Ox O2 Delivery O2 Flow Rate FiO2 09/29/20 21:24 98.8 76 18 117/51 100 Room Air Laboratory Data Labs 24H Laboratory Tests 2 09/29/20 19:32: Immature Granulocyte % (Auto) 0.4, Neutrophils (%) (Auto) 64.8, Lymphocytes (%) (Auto) 28.3, Monocytes (%) (Auto) 5.1, Eosinophils (%) (Auto) 0.7, Basophils (%) (Auto) 0.7, Neutrophils # (Auto) 2.9, Lymphocytes # (Auto) 1.3L, Monocytes # (Auto) 0.2, Eosinophils # (Auto) 0.0, Basophils # (Auto) 0.0, Nucleated Red Blood Cells % (auto) 0.0, Prothrombin Time 15.9H, Prothromb Time International Ratio 1.24, Anion Gap 8, Glomerular Filtration Rate 46.7, Calcium Level 9.4, Total Bilirubin 0.7, Direct Bilirubin 0.2, Aspartate Amino Transf (AST/SGOT) 16, Alanine Aminotransferase (ALT/SGPT) 12, Alkaline Phosphatase 49, Total Protein 6 .0L, Albumin 3.5, Albumin/Globulin Ratio 1.4, Lipase 61L 09/29/20 20:40: Coronavirus (COVID-19)(PCR) NEGATIVE, Influenza Type A (RT-PCR) NEGATIVE, Influenza Type B (RT-PCR) NEGATIVE, Respiratory Syncytial Virus (PCR) NEGATIVE CBC/BMP Laboratory Tests 09/29/20 19:32 Home Medications Scheduled Buspirone HCl (Buspirone HCl) 15 Mg Tablet, 15 MG PO BID Carvedilol (Carvedilol) 3.125 Mg Tablet, 6.25 MG PO BID Cholecalciferol (Vitamin D3) (Vitamin D3) 1,000 Unit Tablet, 1,000 UNITS PO DAILY Megestrol Acetate (Megestrol Acetate) 400 Mg/10 Ml Oral.susp, 400 MG PO DAILY Mirtazapine (Remeron) 30 Mg Tablet, 30 MG PO QPM TAKES AT DINNER Pantoprazole Sodium (Pantoprazole Sodium) 40 Mg Tablet.dr, 40 MG PO DAILY Rivaroxaban (Xarelto) 20 Mg Tablet, 20 MG PO QPM TAKES AT DINNER Spironolactone (Spironolactone) 25 Mg Tablet, 12.5 MG DAILY Allergies Coded Allergies: No Known Allergies (Unverified , 07/09/20) NORMAN BENITES MD September 29, 2020 22:01
[2020-09-29] MEDS ORDERED: MAALOX 30 ML SUSP *UDC PO PRN (22:05)
[2020-09-29] MEDS ORDERED: MOM 30ML SUSPENSION UDC PO PRN (22:05)
[2020-09-29] MEDS ORDERED: ACETAMINOPHEN TAB 650MG DOSE (2X325MG) PO PRN (22:05)
[2020-09-29 22:09] VITALS: BP 125/59
[2020-09-29 22:30] VITALS: BP 126/60
[2020-09-29 23:36] VITALS: BP 117/96
[2020-09-30] MEDS: PANTOPRAZOLE 40MG VIAL (C9113 PER 1) IV SCH ×3 (00:29→21:53)
[2020-09-30] MEDS: busPIRone 5 MG TAB PO SCH ×3 (00:29→21:53)
[2020-09-30] MEDS: CARVedilol 6.25 MG TAB PO SCH ×3 (00:30→21:00)
[2020-09-30 00:51] LABS: BASO % 0.7 % (0.0-1.0); EOS # 0.1 10^3/uL (0.0-0.5); HEMATOCRIT 25.6 % (36.0-47.0); LYMPH # 1.7 10^3/uL (1.5-5.0); LYMPH % 29.2 % (24.0-44.0); MEAN CORPUSCULAR HEMOGLOBIN 32.9 pg (27.0-33.0); MEAN CORPUSCULAR VOLUME 102.8 fl (80.0-96.0); MONO # 0.4 10^3/uL (0.0-0.8); MONO % 6.3 % (2.0-8.0); NEUTROPHILS # 3.6 10^3/uL (1.5-8.5); NEUTROPHILS % 62.3 % (36.0-66.0); PLATELET COUNT, AUTOMATED 369 10^3/uL (150-450); RED BLOOD COUNT 2.49 10^6/uL (4.00-5.40); WHITE BLOOD COUNT 5.8 10^3/uL (4.0-10.0)
[2020-09-30 00:56] LABS: HEMOGLOBIN 8.2 g/dl (12.0-15.5)
[2020-09-30 06:00] VITALS: BP 106/58
[2020-09-30 06:36] LABS: BASO % 0.5 % (0.0-1.0); EOS # 0.1 10^3/uL (0.0-0.5); EOS % 1.1 % (0.0-3.0); HEMATOCRIT 23.7 % (36.0-47.0); HEMOGLOBIN 7.8 g/dl (12.0-15.5); LYMPH # 1.2 10^3/uL (1.5-5.0); LYMPH % 18.5 % (24.0-44.0); MEAN CORPUSCULAR HEMOGLOBIN 33.8 pg (27.0-33.0); MEAN CORPUSCULAR HGB CONC 32.9 g/dl (32.0-36.5); MEAN CORPUSCULAR VOLUME 102.6 fl (80.0-96.0); MONO # 0.3 10^3/uL (0.0-0.8); MONO % 4.9 % (2.0-8.0); NEUTROPHILS # 4.8 10^3/uL (1.5-8.5); NEUTROPHILS % 74.5 % (36.0-66.0); PLATELET COUNT, AUTOMATED 318 10^3/uL (150-450); RED BLOOD COUNT 2.31 10^6/uL (4.00-5.40); WHITE BLOOD COUNT 6.5 10^3/uL (4.0-10.0)
[2020-09-30 07:14] LABS: ALBUMIN 3.3 GM/DL (3.2-5.2); BILIRUBIN,TOTAL 1.3 MG/DL (0.2-1.0); CALCIUM LEVEL 9.3 MG/DL (8.8-10.2); CREATININE FOR GFR 1.16 MG/DL (0.55-1.30); GLOMERULAR FILTRATION RATE 47.2 (>32); MAGNESIUM LEVEL 1.5 MG/DL (1.8-2.4); POTASSIUM SERUM 3.8 MEQ/L (3.5-5.1); TOTAL PROTEIN 5.7 GM/DL (6.4-8.2)
[2020-09-30] MEDS: SPIRONOLACTONE 12.5MG PER 1/2 TABLET PO SCH (09:00)
--- NOTE | 2020-09-30 09:33 | ECGEPIP ---
[facility] - ED Test Date: 2020-09-29 Pat Name: KILEY THRASHER Department: Room: [place] [address] Gender: Female Admissions Nurse: ANA : [id number] Requested By: Leyla Syed Order Number: [id number] Reading MD: Leyla Syed Measurements Intervals [place] Rate: 76 P: 68 ME: 158 QRS: -36 QRSD: 122 T: 76 QT: 396 QTc: 445 Interpretive Statements Normal sinus rhythm Left axis deviation Left bundle branch block similar 08/13/20 Electronically Signed on 09-30-2020 9:33:23 EDT by Leyla Syed
[2020-09-30] MEDS: VITAMIN D 1,000 INTERNATIONAL UNITS TABLET PO SCH (09:34)
[2020-09-30] MEDS: DOCUSATE SODIUM 100MG CAPSULE PO SCH ×2 (09:34→21:53)
[2020-09-30 14:00] VITALS: BP 86/52
[2020-09-30] MEDS ORDERED: BISACODYL 5 MG TAB PO ONE (14:25)
[2020-09-30] MEDS: MIRTAZAPINE 15 MG TAB PO SCH (17:32)
[2020-09-30 17:33] VITALS: BP 91/54
--- NOTE | 2020-09-30 18:10 | IPNPDOC ---
Subjective Date Seen The patient was seen on 09/30/20. Subjective Chief Complaint/HPI Pt is an 84-year-old female with a past medical history of COPD requiring 2L of oxygen, atrial fibrillation/SVT, cor pulmonale, non-rheumatic valvular disease (aortic and mitral), hemochromatosis, diverticulitis, and VTE is here on hospital day 1 for an admission for GI bleed with resulting anemia. She reports a history of fatigue over the past six months. She reports no overnight events and states that she has not had a bowel movement for the past 3-4 days. She denies any abdominal tenderness at this time. She reports a history of IBS and states that a few days ago, she had a bowel movement that resulted in blood in her stool. She states that she is most concerned about her heart palpitations. Events since last encounter None. General: Reports: Normal Appetite (Pt states that her appetite has been low for the past couple months); Denies: Chills, Night Sweats, Fatigue, Malaise Eyes: Denies: Pain, Vision change, Conjunctivae inflammation ENT: Denies: Head Aches, Ear Pain, Dysphagia, Sinus Congestion, Sore Throat Skin: Denies: Rash, Lesions, Jaundice Pulmonary: Denies: Dyspnea, Cough, Pleuritic Chest Pain Cardiovascular: Reports: Palpitations (chronic with atrial fibrillation); Denies: Chest Pain Gastrointestinal: Reports: Constipation; Denies: Nausea, Vomiting, Abdominal Pain, Diarrhea Genitourinary: Denies: Dysuria, Frequency, Incontinence Neurological: Denies: Weakness, Numbness Psych: Reports: Mood Normal Objective Physical Examination General Exam: Positive: Alert, Cooperative, No Acute Distress Eye Exam: Positive: PERRLA, Conjunctiva & lids normal (conjunctival pallor present), EOMI ENT Exam: Positive: Atraumatic, Mucous membr. moist/pink, Pharynx Normal, Tongue Midline Neck Exam: Positive: Supple Chest Exam: Positive: Clear to auscultation, Normal air movement; Negative: Rales, Rhonchi, Wheezing Heart Exam: Positive: Rate Normal, Irregular Rhythm, Normal S1, Normal S2, Murmurs (GIRISH 2/6) Abdomen Exam: Positive: Normal bowel sounds, Soft; Negative: Tenderness, Hepatospenomegaly, Mass Female Exam: Positive: Nl Rectal Sphincter Tone (melena elicited on HEATH, no thrombosed external hemorrhoids present); Negative: Normal Cervical Exam Extremity Exam: Positive: Normal pulses Skin Exam: Positive: Nl turgor and temperature; Negative: Rash, Breakdown Neuro Exam: Positive: Normal Tone, Sensation Intact Psych Exam: Positive: Mental status NL, Memory Intact, Oriented x 3 Other physical findings Pt has severe levoscoliosis and kyphosis. Assessment /Plan Assessment #GI bleed with secondary anemia -pt's Hgb threshold is 7, especially considering medical history of cor pulmonale; pt has received one blood transfusion. -Continue to hold Xarelto at this time -Stool occult was positive in ED -Consulting surgery for colonoscopy to investigate source of bleed -Ordered Dulcolax due to lack of bowel movements over the past three days #Atrial fibrillation with history of possible SVT and non-rheumatic valvular disease (aortic/mitral insufficiency) -Continue to hold Xarelto -Will consider restarting Xarelto after colonoscopy results. -holding carvedilol due to soft BPs at this time. #COPD -Continue O2 therapy -COVID negative #GERD -Continue Protonix BID. Plan/VTE VTE Prophylaxis Ordered?: No (Pt has an active GI bleed with resulting admitting Hgb of 5.7, no source still found) Plan Anticipated Discharge: Home #Acute blood loss anemia 2/2 Acute GI bleed with history of fatigue -pt's fatigue is likely secondary to anemia and poor oral intake -pt has not had a BM since her bright red blood per rectum 4 days ago. -Ordered Dulcolax due to lack of BMs -pt's Hgb threshold is 7, especially considering medical history of cor pulmonale; pt has received one unit of blood transfusion. -Continue to hold Xarelto at this time -Stool occult was positive in ED -Consulted Dr. 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 Kendall on GI and relayed this finding to him as well. -Consider possible ERCP. #Atrial fibrillation with history of possible SVT and non-rheumatic valvular disease (aortic/mitral insufficiency) -Continue to hold Xarelto. -Will consider restarting Xarelto after colonoscopy results. -holding carvedilol due to soft BPs at this time. #RHF with history of cor pulmonale -no crackles on physical exam today -no extremity edema, pt appears euvolemic today -holding spironolactone and carvedilol at this time due to soft BPs. #COPD -Continue O2 therapy -COVID negative #GERD -Continue Protonix BID. #Anxiety/Depression -Continue home medication: Mirtazapine and Buspar. # Disposition Consult placed with Dr. Kendall. Pending GI scope to determine when to start Xarelto. VS, I&O, 24H, Fishbone Vital Signs/I&O Vital Signs Date Time Temp Pulse Resp B/P (MAP) Pulse Ox O2 Delivery O2 Flow Rate FiO2 09/30/20 14:00 97.9 73 20 86/52 (63) 94 Room Air I&O- Last 24 Hours up to 6 AM 09/30/20 06:00 Intake Total 800 ml Output Total 1450 ml Balance -650 ml Laboratory Data 24H LABS Laboratory Tests 2 09/29/20 19:32: Immature Granulocyte % (Auto) 0.4, Neutrophils (%) (Auto) 64.8, Lymphocytes (%) (Auto) 28.3, Monocytes (%) (Auto) 5.1, Eosinophils (%) (Auto) 0.7, Basophils (%) (Auto) 0.7, Neutrophils # (Auto) 2.9, Lymphocytes # (Auto) 1.3L, Monocytes # ( Auto) 0.2, Eosinophils # (Auto) 0.0, Basophils # (Auto) 0.0, Nucleated Red Blood Cells % (auto) 0.0, Prothrombin Time 15.9H, Prothromb Time International Ratio 1.24, Anion Gap 8, Glomerular Filtration Rate 46.7, Calcium Level 9.4, Total Bilirubin 0.7, Direct Bilirubin 0.2, Aspartate Amino Transf (AST/SGOT) 16, Alanine Aminotransferase (ALT/SGPT) 12, Alkaline Phosphatase 49, EB-Pcf-Q-Type Natriuretic Peptide 873H, Total Protein 6.0L, Albumin 3.5, Albumin/Globulin Ratio 1.4, Lipase 61L 09/29/20 20:40: Coronavirus (COVID-19)(PCR) NEGATIVE, Influenza Type A (RT-PCR) NEGATIVE, Influenza Type B (RT-PCR) NEGATIVE, Respiratory Syncytial Virus (PCR) NEGATIVE 09/30/20 00:44: Immature Granulocyte % (Auto) 0.5, Neutrophils (%) (Auto) 62.3, Lymphocytes (%) (Auto) 29.2, Monocytes (%) (Auto) 6.3, Eosinophils (%) (Auto) 1.0, Basophils (%) (Auto) 0.7, Neutrophils # (Auto) 3.6, Lymphocytes # (Auto) 1.7, Monocytes # (Auto) 0.4, Eosinophils # (Auto) 0.1, Basophils # (Auto) 0.0, Nucleated Red Blood Cells % (auto) 0.0 09/30/20 06:12: Immature Granulocyte % (Auto) 0.5, Neutrophils (%) (Auto) 74.5H, Lymphocytes (%) (Auto) 18.5L, Monocytes (%) (Auto) 4.9, Eosinophils (%) (Auto) 1.1, Basophils (%) (Auto) 0.5, Neutrophils # (Auto) 4.8, Lymphocytes # (Auto) 1.2L, Monocytes # (Auto) 0.3, Eosinophils # (Auto) 0.1, Basophils # (Auto) 0.0, Nucleated Red Blood Cells % (auto) 0.0, Anion Gap 10, Glomerular Filtration Rate 47.2, Calcium Level 9.3, Total Bilirubin 1.3#H, Aspartate Amino Transf (AST/SGOT) 16, Alanine Aminotransferase (ALT/SGPT) 11L, Alkaline Phosphatase 45, Total Protein 5.7L, Albumin 3.3, Albumin/Globulin Ratio 1.4, Magnesium Level 1.5L CBC/BMP Laboratory Tests 09/29/20 19:32 09/30/20 00:44 09/30/20 06:12 GME ATTESTATION My faculty preceptor for this patient encounter was physically present during the encounter and was fully available. All aspects of the patient interview, examination, medical decision making process, and medical care plan development were reviewed and approved by the faculty preceptor. The faculty preceptor is aware and concurs with the plan as stated in the body of this note and will attest to such by his/her cosignature. Kashif Garza DO September 30, 2020 18:08
[2020-09-30] MEDS ORDERED: MOM 30ML SUSPENSION UDC PO ONE (20:25)
--- NOTE | 2020-09-30 21:42 | CR ---
CONSULTATION DATE: 09/30/2020 STATUS OF PATIENT: Inpatient REQUESTING PHYSICIAN: Hospitalist Service REASON FOR CONSULTATION: GI bleed. HISTORY OF PRESENT ILLNESS: This is an 84-year-old female with a past medical history significant for chronic obstructive pulmonary disease and congestive heart failure with one episode of bright red blood per rectum approximately 3 days ago, evening, associated with some loose stools. This has spontaneously stopped. The patient had the wherewithal to check with her family and she was told to stop the Xarelto for 2 days. The patient did stop her Xarelto on Wednesday morning and did not have any further acts of bleeding episodes, however she felt quite weak and tired to the point that she did present to the Emergency Room for further evaluation on Wednesday night. She was found to have a hemoglobin of 5.7, heme positive stool, but she has had no further rectal bleeding between the episodes 3 days ago and admission to the hospital. The patient was transfused. Review of her previous lab work reveals that she has been mild to moderately anemic since 2016 and has somewhat decreased to the 10.5 level in May of 2019. Her indices are typically macrocytic with normal platelet counts. She denies any abdominal pain. No nausea, no vomiting, no fevers or chills. PAST MEDICAL HISTORY: The patient's past medical history is significant for: 1. Atrial fibrillation. 2. Non rheumatic valvular disease. 3. Aortic insufficiency. 4. Diverticulitis. PAST SURGICAL HISTORY: The patient's past surgical history is significant for: 1. Cataract. 2. Cardiac catheterization. 3. Appendectomy. 4. Oophorectomy. SOCIAL HISTORY: She is a former smoker, no alcohol or tobacco use at this time. ALLERGIES: NO KNOWN DRUG ALLERGIES. PHYSICAL EXAMINATION: VITAL SIGNS: Temperature 97.7, pulse 74, respiratory rate is 20, blood pressure for today ranged between 117/96 to 91/54, pulse oximetry 95% on room air, pulse is 74. GENERAL APPEARANCE: She is awake, alert and oriented x3, in no acute distress, nontoxic in appearance. HEENT: Grossly without abnormality. NECK: Supple, no lymphadenopathy. Positive for JVD. CHEST: Coarse, distant breath sounds, no rhonchi or crackles. HEART: Regular rate, rhythm, S1, S2 with ectopy. Diastolic murmur in the aortic area, 2/6. ABDOMEN: Soft, nontender, good bowel sounds, no masses felt. EXTREMITIES: Negative for pedal edema. Pulses are palpable. LABORATORY STUDIES: Lab work reviewed in [facility]. IMAGING: Reviewed in [facility]. IMPRESSION: 1. Acute GI bleeding most likely lower GI bleed. Differential includes upper GI bleeding as well but this is much less likely. 2. Chronic anemia microcytic indices. RECOMMENDATIONS: 1. Colonoscopy +/- EGD depending on findings on colonoscopy. 2. Previously incomplete colonoscopy due to poor prep and extremely torturous colon. I will proceed with additional preparation starting tomorrow/Wednesday with planned colonoscopy EGD on Wednesday early afternoon. 3. Would recommend further evaluation of her baseline chronic anemia I will leave this up to the requesting physician. 4. 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 At this time will not pursue as her cardiac condition and advanced age and comorbidities likely preclude any significant intervention.
[2020-09-30 22:00] VITALS: BP 101/51
[2020-10-01 06:00] VITALS: BP 104/48
[2020-10-01 06:42] LABS: BASO % 0.5 % (0.0-1.0); EOS # 0.1 10^3/uL (0.0-0.5); EOS % 1.8 % (0.0-3.0); HEMOGLOBIN 7.4 g/dl (12.0-15.5); LYMPH # 1.7 10^3/uL (1.5-5.0); LYMPH % 30.2 % (24.0-44.0); MEAN CORPUSCULAR HEMOGLOBIN 33.5 pg (27.0-33.0); MEAN CORPUSCULAR HGB CONC 32.2 g/dl (32.0-36.5); MEAN CORPUSCULAR VOLUME 104.1 fl (80.0-96.0); MONO # 0.3 10^3/uL (0.0-0.8); MONO % 5.5 % (2.0-8.0); NEUTROPHILS # 3.5 10^3/uL (1.5-8.5); NEUTROPHILS % 61.5 % (36.0-66.0); PLATELET COUNT, AUTOMATED 366 10^3/uL (150-450); RED BLOOD COUNT 2.21 10^6/uL (4.00-5.40); WHITE BLOOD COUNT 5.7 10^3/uL (4.0-10.0)
[2020-10-01 07:14] LABS: ALBUMIN 2.9 GM/DL (3.2-5.2); BILIRUBIN,TOTAL 0.7 MG/DL (0.2-1.0); CALCIUM LEVEL 8.5 MG/DL (8.8-10.2); CREATININE FOR GFR 1.07 MG/DL (0.55-1.30); GLOMERULAR FILTRATION RATE 51.8 (>32); MAGNESIUM LEVEL 2.1 MG/DL (1.8-2.4); TOTAL PROTEIN 5.6 GM/DL (6.4-8.2)
[2020-10-01] MEDS ORDERED: MOM 30ML SUSPENSION UDC PO ONE (08:00)
[2020-10-01] MEDS: SPIRONOLACTONE 12.5MG PER 1/2 TABLET PO SCH (08:45)
[2020-10-01] MEDS: CARVedilol 6.25 MG TAB PO SCH ×2 (08:46→20:29)
[2020-10-01] MEDS: DOCUSATE SODIUM 100MG CAPSULE PO SCH ×2 (08:53→20:29)
[2020-10-01] MEDS: PANTOPRAZOLE 40MG VIAL (C9113 PER 1) IV SCH ×2 (08:53→20:30)
[2020-10-01] MEDS: VITAMIN D 1,000 INTERNATIONAL UNITS TABLET PO SCH (08:54)
[2020-10-01] MEDS: busPIRone 5 MG TAB PO SCH ×2 (08:54→20:29)
[2020-10-01 09:27] LABS: PERCENT SATURATION 16.6 % (13.2-45.0)
[2020-10-01 11:41] VITALS: BP 98/50
[2020-10-01 14:00] VITALS: BP 101/51
[2020-10-01] MEDS ORDERED: POLYETHYLENE GLYCOL (MIRALAX) 238GM BOTTLE PO ONE (16:00)
--- NOTE | 2020-10-01 17:40 | IPNPDOC ---
Date Seen The patient was seen on 10/01/20. Progress Note SUBJECTIVE: Pt is an 84-year-old female with a past medical history of COPD requiring 2L of oxygen, atrial fibrillation/SVT, cor pulmonale, non-rheumatic valvular disease (aortic and mitral), hemochromatosis, diverticulitis, and VTE is here on hospital day 2 for an admission for GI bleed with resulting anemia. She reports a history of fatigue over the past six months. She reports no overnight events and states that she had a bowel movement today which was a soft, formed, tarry stool. She denies any abdominal tenderness at this time. Patient states that she is nervous about the colonoscopy and EGD at this time. OBJECTIVE: Physical Examination General Exam: Alert, Cooperative, No Acute Distress. Thin elderly white female. Eye Exam: PERRLA, Conjunctiva & lids normal (conjunctival pallor present), EOMI ENT Exam: Atraumatic, Mucous membr. moist/pink, Pharynx Normal, Tongue Midline Neck Exam: Supple Chest Exam: Clear to auscultation, Normal air movement; no Rales, Rhonchi, Wheezing Heart Exam: Rate Normal, Irregular Rhythm, Normal S1, Normal S2, Murmurs (GIRISH 2/6) Abdomen Exam: Normal bowel sounds, Soft, non-distended, no hepatosplenomegaly Female Exam: Nl Rectal Sphincter Tone (melena elicited on HEATH, no thrombosed external hemorrhoids present); Extremity Exam: Normal pulses, upper and lower extremities Skin Exam: Nl turgor and temperature Neuro Exam: Normal Tone, Sensation Intact Psych Exam: Mental status NL, Memory Intact, Oriented x 3 Spine: Pt has severe levoscoliosis and kyphosis. ASSESSMENT/PLAN: #Hypotensive episode secondary to acute GI bleed. Patient had systolic blood pressures in the low 80s. This systolic blood pressure finding was in the setting of no new neurological/cardiac symptoms. Oral rehydration was encouraged during a.m. and early afternoon, patient is on clear liquid diet for anticipated colonoscopy tomorrow. IV hydration with lactated Ringer running at 50 mL per hour has been ordered for starting at 6 PM; this infusion rate for hydration has been chosen due to patient's history of cor pulmonale. #Acute blood loss anemia 2/2 Acute GI bleed with history of fatigue -Pt's fatigue is likely secondary to anemia and poor oral intake. -Stool occult was positive in ED, initial hemoglobin of 5.7 on admission. -Threshold to transfuse blood products is Hgb: 7.0, particularly considering medical history of cor pulmonale. Patient is s/p one unit PRBC transfusion on 09/29/2020, Hgb responded well and improved to 8.2; today, Hgb has slowly trended back down to 7.4. Patient's Xarelto dose (home medication for atrial fibrillation) was held due to patient's acute GI bleed. Continue to hold until colonoscopy results. Iron studies ordered and pending. Gastroenterology (Dr. Kendall) consulted. Plan is for colonoscopy +/- EGD (EGD dependent on colonoscopy results) tomorrow afternoon. Hospitalist service sincerely appreciates gastroenterology input. Patient is currently on clear liquid diet to be switched to nothing by mouth at 8 AM tomorrow morning, 10/02/20. Risks and benefits for EGD and colonoscopy discussed with patient. Risks: Perforation, infection, bleeding, damage to surrounding organs. Benefits: Po tential for both diagnostic and therapeutic measures for acute GI bleed. 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 Due to patient's advanced age and multiple comorbidities, especially cardiovascular disease, GI does not advise further evaluation at this time. #Atrial fibrillation with history of possible SVT and non-rheumatic valvular disease (aortic/mitral insufficiency) -Continue to hold Xarelto in setting of acute GI bleed. -Will consider restarting Xarelto pending colonoscopy results. -holding home carvedilol due to soft BPs at this time. #RHF with history of cor pulmonale Likely manifestation of tobacco use history, and subsequent COPD Patient appears to be hypo-/euvolemic on exam -no crackles nor LE edema on exam today home spironolactone and carvedilol currently held in setting of softer BPs. -1 L of gentle IVF hydration (LR 50cc/hr) to start at 6 pm today as pt has had softer pressures since admission and completes bowel prep w/ switch to npo for scope -continue to monitor Is & Os and UO. #COPD, O2-dependent Patient on continuous oxygen therapy, 2 L NC at home Patient is not in COPD exacerbation at this time Patient is a former smoker -Continue O2 therapy, with titration orders specific to COPD pathophysiology. #Reported history of Hemochromatosis. Iron studies ordered. #Reported h/o unspecified GERD -Continue Protonix BID. #Anxiety/Depression -Continue home medication: Mirtazapine and Buspar. DVT Prophylaxis: Home Xarelto held, TEDS and sequentials ordered in the setting of acute GI bleed. Disposition: Pending GI scope results. VS, I&O, 24H, Fishbone Vital Signs/I&O Vital Signs Date Time Temp Pulse Resp B/P (MAP) Pulse Ox O2 Delivery O2 Flow Rate FiO2 10/01/20 14:00 97.3 63 16 101/51 (68) 96 Room Air I&O- Last 24 Hours up to 6 AM0 10/01/20 06:00 Intake Total 780 ml Output Total 950 ml Balance -170 ml Laboratory Data 24H LABS Laboratory Tests 2 10/01/20 05:59: Immature Granulocyte % (Auto) 0.5, Neutrophils (%) (Auto) 61.5, Lymphocytes (%) (Auto) 30.2, Monocytes (%) (Auto) 5.5, Eosinophils (%) (Auto) 1.8, Basophils (%) (Auto) 0.5, Neutrophils # (Auto) 3.5, Lymphocytes # (Auto) 1.7, Monocytes # (Auto) 0.3, Eosinophils # (Auto) 0.1, Basophils # (Auto) 0.0, Nucleated Red Blood Cells % (auto) 0.0, Anion Gap 7L, Glomerular Filtration Rate 51.8, Calcium Level 8.5L, Magnesium Level 2.1, Iron Level 36L, Total Iron Binding Capacity 217L, Transferrin % Saturation 16.6, Ferritin 88, Total Bilirubin 0.7, Aspartate Amino Transf (AST/SGOT) 13, Alanine Aminotransferase (ALT/SGPT) 9L, Alkaline Phosphatase 44L, Total Protein 5.6L, Albumin 2.9L, Albumin/Globulin Ratio 1.1L CBC/BMP Laboratory Tests 10/01/20 05:59 GME ATTESTATION My faculty preceptor for this patient encounter was physically present during the encounter and was fully available. All aspects of the patient interview, examination, medical decision making process, and medical care plan development were reviewed and approved by the faculty preceptor. The faculty preceptor is aware and concurs with the plan as stated in the body of this note and will atte st to such by his/her cosignature. Kashif Garza DO Oct 01, 2020 17:13
[2020-10-01] MEDS: MIRTAZAPINE 15 MG TAB PO SCH (17:48)
[2020-10-01] MEDS ORDERED: LR 1,000 ML IV SCH (18:00)
[2020-10-01 22:00] VITALS: BP 106/55
[2020-10-02] MEDS ORDERED: POLYETHYLENE GLYCOL (MIRALAX) 238GM BOTTLE PO ONE (05:00)
[2020-10-02 06:00] VITALS: BP 112/53
[2020-10-02 07:26] LABS: BASO % 0.7 % (0.0-1.0); EOS # 0.2 10^3/uL (0.0-0.5); EOS % 3.3 % (0.0-3.0); HEMATOCRIT 26.7 % (36.0-47.0); HEMOGLOBIN 8.2 g/dl (12.0-15.5); LYMPH # 1.4 10^3/uL (1.5-5.0); LYMPH % 23.2 % (24.0-44.0); MEAN CORPUSCULAR HEMOGLOBIN 32.8 pg (27.0-33.0); MEAN CORPUSCULAR HGB CONC 30.7 g/dl (32.0-36.5); MEAN CORPUSCULAR VOLUME 106.8 fl (80.0-96.0); MONO # 0.4 10^3/uL (0.0-0.8); MONO % 5.8 % (2.0-8.0); NEUTROPHILS # 4.1 10^3/uL (1.5-8.5); NEUTROPHILS % 66.5 % (36.0-66.0); PLATELET COUNT, AUTOMATED 394 10^3/uL (150-450); WHITE BLOOD COUNT 6.1 10^3/uL (4.0-10.0)
[2020-10-02 08:04] LABS: ALBUMIN 3.2 GM/DL (3.2-5.2); ALT/SGPT 11 U/L (12-78); BLOOD UREA NITROGEN 10 MG/DL (7-18); CALCIUM LEVEL 8.8 MG/DL (8.8-10.2); CARBON DIOXIDE LEVEL 30 MEQ/L (21-32); CHLORIDE LEVEL 104 MEQ/L (98-107); CREATININE FOR GFR 0.89 MG/DL (0.55-1.30); GLOMERULAR FILTRATION RATE > 60.0 (>32); GLUCOSE, FASTING 85 MG/DL (70-100); POTASSIUM SERUM 3.9 MEQ/L (3.5-5.1); SODIUM LEVEL 139 MEQ/L (136-145); TOTAL PROTEIN 6.2 GM/DL (6.4-8.2)
[2020-10-02] MEDS: SPIRONOLACTONE 12.5MG PER 1/2 TABLET PO SCH (08:16)
[2020-10-02] MEDS: CARVedilol 6.25 MG TAB PO SCH ×2 (08:18→20:48)
[2020-10-02] MEDS: PANTOPRAZOLE 40MG VIAL (C9113 PER 1) IV SCH ×2 (08:19→20:59)
[2020-10-02] MEDS: DOCUSATE SODIUM 100MG CAPSULE PO SCH ×2 (08:20→20:59)
[2020-10-02] MEDS: busPIRone 5 MG TAB PO SCH ×2 (08:20→20:59)
[2020-10-02] MEDS: VITAMIN D 1,000 INTERNATIONAL UNITS TABLET PO SCH (08:20)
[2020-10-02 14:00] VITALS: BP 101/64
[2020-10-02] MEDS ORDERED: propofoL 200 MG/20 ML VIAL As Ordered ONE (14:21)
[2020-10-02] MEDS ORDERED: LIDOCAINE 2% 100MG/5ML SDV (FOR ANES.) As Ordered ONE (14:21)
--- NOTE | 2020-10-02 15:08 | IPNPDOC ---
Date Seen The patient was seen on 10/02/20. Progress Note SUBJECTIVE: Pt is an 84-year-old female with a past medical history of COPD requiring 2L of oxygen, atrial fibrillation/SVT, cor pulmonale, non-rheumatic valvular disease (aortic and mitral), hemochromatosis, diverticulitis, and VTE is here on hospital day 3 for an admission for GI bleed with resulting anemia. She reports a history of fatigue over the past six months. She reports no overnight events. She denies any abdominal tenderness at this time. Patient states that she is nervous about the colonoscopy, but reported more anxiety over not knowing when the colonoscopy would be done and whether her hair would be combed with a good hair product. OBJECTIVE: Physical Examination General Exam: Alert, Cooperative, Mild anxiety due to today's procedure. No physical acute distress. Thin elderly white female. Eye Exam: PERRLA, Conjunctiva & lids normal (conjunctival pallor present), EOMI ENT Exam: Atraumatic, Mucous membr. moist/pink, Pharynx Normal, Tongue Midline Neck Exam: Supple Chest Exam: Clear to auscultation, Normal air movement; no Rales, Rhonchi, Wheezing Heart Exam: Rate Normal, Irregular Rhythm, Normal S1, Normal S2, Murmurs (GIRISH 2/6) Abdomen Exam: Normal bowel sounds, Soft, non-distended, no hepatosplenomegaly Extremity Exam: Normal pulses, upper and lower extremities Skin Exam: Nl turgor and temperature Neuro Exam: Normal Tone, Sensation Intact Psych Exam: Mental status NL, Memory Intact, Oriented x 3 Spine: Pt has severe levoscoliosis and kyphosis. ASSESSMENT/PLAN: #Hypotensive episode secondary to acute GI bleed. Patient has been having good systolic blood pressures today, although they do still remain soft, with the lowest SBP of 101. Pt has no neurological/cardiac sequelae from soft blood pressures. #Acute blood loss anemia 2/2 Acute GI bleed with history of fatigue -Pt's fatigue is likely secondary to anemia and poor oral intake. -Stool occult was positive in ED, initial hemoglobin of 5.7 on admission. -Threshold to transfuse blood products is Hgb: 7.0, particularly considering medical history of cor pulmonale. Patient is s/p one unit PRBC transfusion on 09/29/2020, Hgb responded well and improved to 8.2; today, pt's Hgb is 8.2. Patient's Xarelto dose (home medication for atrial fibrillation) was held due to patient's acute GI bleed. Continue to hold until colonoscopy results. Iron studies ordered and pending. Gastroenterology (Dr. Kendall) consulted. Plan is for colonoscopy +/- EGD (EGD dependent on colonoscopy results) today. Hospitalist service sincerely appreciates gastroenterology input. Risks and benefits for EGD and colonoscopy discussed with patient. Risks: Perforation, infection, bleeding, damage to surrounding organs. Benefits: Potential for both diagnostic and therapeutic measures for acute GI bleed. Patient is currently on nothing by mouth as of 8 AM this morning, 10/02/20. 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 Due to patient's advanced age and multiple comorbidities, especially cardiovascular disease, GI does not advise further evaluation at this time. #Atrial fibrillation with history of possible SVT and non-rheumatic valvular disease (aortic/mitral insufficiency) -Continue to hold Xarelto in setting of acute GI bleed. -Will consider restarting Xarelto pending colonoscopy results. -holding home carvedilol due to soft BPs at this time. #RHF with history of cor pulmonale Likely manifestation of tobacco use history, and subsequent COPD Patient appears to be hypo-/euvolemic on exam -no crackles nor LE edema on exam today home spironolactone and carvedilol currently held in setting of softer BPs. -continue to monitor Is & Os, and UO. #COPD, O2-dependent Patient on continuous oxygen therapy, 2 L NC at home Patient is not in COPD exacerbation at this time Patient is a former smoker -Continue O2 therapy, with titration orders specific to COPD pathophysiology. #Reported history of Hemochromatosis. Iron low according to iron studies here. Low iron likely an anemia manifestation from acute GI bleed. #Reported h/o unspecified GERD -Continue Protonix BID. #Anxiety/Depression -Continue home medication: Mirtazapine and Buspar. DVT Prophylaxis: Home Xarelto held, TEDS and sequentials ordered in the setting of acute GI bleed. Disposition: Pending GI scope results. VS, I&O, 24H, Fishbone Vital Signs/I&O Vital Signs Date Time Temp Pulse Resp B/P (MAP) Pulse Ox O2 Delivery O2 Flow Rate FiO2 10/02/20 14:00 97.4 74 16 101/64 (76) 95 Nasal Cannula I&O- Last 24 Hours up to 6 AM 10/02/20 06:00 Intake Total 3430 ml Output Total 100 ml Balance 3330 ml Laboratory Data 24H LABS Laboratory Tests 2 10/02/20 07:02: Immature Granulocyte % (Auto) 0.5, Neutrophils (%) (Auto) 66.5H, Lymphocytes (%) (Auto) 23.2L, Monocytes (%) (Auto) 5.8, Eosinophils (%) (Auto) 3.3H, Basophils (%) (Auto) 0.7, Neutrophils # (Auto) 4.1, Lymphocytes # (Auto) 1.4L, Monocytes # (Auto) 0.4, Eosinophils # (Auto) 0.2, Basophils # (Auto) 0.0, Nucleated Red Blood Cells % (auto) 0.0, Anion Gap 5L, Glomerular Filtration Rate > 60.0, Calcium Level 8.8, Magnesium Level 2.0, Total Bilirubin 1.0, Aspartate Amino Transf (AST/SGOT) 16, Alanine Aminotransferase (ALT/SGPT) 11L, Alkaline Phosphatase 51, Total Protein 6.2L, Albumin 3.2, Albumin/Globulin Ratio 1.1L CBC/BMP Laboratory Tests 10/02/20 07:02 GME ATTESTATION My faculty preceptor for this patient encounter was physically present during the encounter and was fully available. All aspects of the patient interview, examination, medical decision making process, and medical care plan development were reviewed and approved by the faculty preceptor. The faculty preceptor is aware and concurs with the plan as stated in the body of this note and will attest to such by his/her cosignature. Kashif Garza DO Oct 02, 2020 15:08
[2020-10-02] MEDS ORDERED: fentaNYL 100 MCG/2 ML INJECTION (J3010) As Ordered ONE (16:20)
[2020-10-02] MEDS ORDERED: PHENYLephrine 500MCG 5ML (100MCG/ML) SYRINGE As Ordered ONE (16:28)
--- NOTE | 2020-10-02 17:06 | ROOR ---
Patient Name: Jeffrey Benson Procedure Date: 10/02/2020 2:29 PM Date of : 1935 Age: 85 Gender: Female Note Status: Finalized Procedure: Upper GI endoscopy Indications: Iron deficiency anemia Providers: Faisal Kendall MD Referring MD: 2. Inpatient 2. Inpatient Requesting Provider: Medicines: Monitored Anesthesia Care Complications: No immediate complications. Procedure: Pre-Anesthesia Assessment: - The heart rate, respiratory rate, oxygen saturations, blood pressure, adequacy of pulmonary ventilation, and response to care were monitored throughout the procedure. The Endoscope was introduced through the mouth, and advanced to the second part of duodenum. The upper GI endoscopy was accomplished without difficulty. The patient tolerated the procedure well. Findings: A large hiatal hernia was present. The exam was otherwise without abnormality. Impression: - Large hiatal hernia. - The examination was otherwise normal. - No specimens collected. Recommendation: -TThe large hiatal hernia is the likely cause for iron deficit: - No ibuprofen, naproxen, or other non-steroidal anti-inflammatory drugs. - Use a proton pump inhibitor PO daily. - Recommend an iron supplement. - If iron deficit persists, consider repair of large hiatal hernia. Procedure Code(s): --- Professional --- 10875, Esophagogastroduodenoscopy, flexible, transoral; diagnostic, including collection of specimen(s) by brushing or washing, when performed (separate procedure) Diagnosis Code(s): --- Professional --- D50.9, Iron deficiency anemia, unspecified K44.9, Diaphragmatic hernia without obstruction or gangrene CPT copyright 2019 [employer]. All rights reserved. The codes documented in this report are preliminary and upon medical billing coder review may be revised to meet current compliance requirements. Faiasl Kendall MD Faisal Kendall MD 10/02/2020 5:05:44 PM Electronically signed by Faisal Kendall MD Number of Addenda: 0 Note Initiated On: 10/02/2020 2:29 PM Estimated Blood Loss: Estimated blood loss: none.
--- NOTE | 2020-10-02 17:12 | ROOR ---
Patient Name: Jeffrey Benson Procedure Date: 10/02/2020 2:36 PM Date of : 1935 Age: 85 Gender: Female Note Status: Finalized Procedure: Colonoscopy Indications: Iron deficiency anemia Providers: Faisal Kendall MD Referring MD: 2. Inpatient 2. Inpatient Requesting Provider: Medicines: Monitored Anesthesia Care Complications: No immediate complications. Procedure: Pre-Anesthesia Assessment: - The heart rate, respiratory rate, oxygen saturations, blood pressure, adequacy of pulmonary ventilation, and response to care were monitored throughout the procedure. The Colonoscope was introduced through the anus and advanced to 10 cm into the ileum. The colonoscopy was performed with difficulty due to multiple diverticula in the colon, significant looping and a tortuous colon. Successful completion of the procedure was aided by applying abdominal pressure. The patient tolerated the procedure well. The quality of the bowel preparation was good. Findings: The perianal and digital rectal examinations were normal. Multiple small and large-mouthed diverticula were found in the sigmoid colon. There was narrowing of the colon in association with the diverticular opening. Retroflexion in the right colon was performed. The exam was otherwise normal throughout the examined colon. The terminal ileum appeared normal. Impression: - Severe diverticulosis in the sigmoid colon. There was narrowing of the colon in association with the diverticular opening. - Internal hemorrhoids. - The colon is otherwise normal. - The examined portion of the ileum was normal. - No specimens collected. Recommendation: - Iron deficit likely related to large hiatal hernia seen on EGD. - No NSAIDS, Daily PPI, Iron supplement. - [facility] care. Procedure Code(s): --- Professional --- 88427, Colonoscopy, flexible; diagnostic, including collection of specimen(s) by brushing or washing, when performed (separate procedure) Diagnosis Code(s): --- Professional --- K57.30, Diverticulosis of large intestine without perforation or abscess without bleeding D50.9, Iron deficiency anemia, unspecified CPT copyright 2019 [employer]. All rights reserved. The codes documented in this report are preliminary and upon firing pin gauger review may be revised to meet current compliance requirements. Faisal Kendall MD Faisal Kendall MD 10/02/2020 5:11:59 PM Electronically signed by Faisal Kendall MD Number of Addenda: 0 Note Initiated On: 10/02/2020 2:36 PM Estimated Blood Loss: Estimated blood loss: none.
[2020-10-02] MEDS ORDERED: LR 1,000 ML IV SCH (17:20)
[2020-10-02] MEDS ORDERED: ONDANSETRON 4MG/2ML VIAL IV PRN (17:20)
[2020-10-02] MEDS ORDERED: RIVAROXABAN 15 MG TAB (XARELTO) PO SCH (18:00)
[2020-10-02] MEDS: MIRTAZAPINE 15 MG TAB PO SCH (18:20)
[2020-10-02] MEDS ORDERED: NS 1,000 ML IV ONE (20:55)
[2020-10-02] MEDS ORDERED: RIVAROXABAN 20 MG TAB (XARELTO) PO SCH (21:00)
[2020-10-02] MEDS ORDERED: MIDODRINE 2.5 MG TAB PO ONE (21:00)
[2020-10-02] MEDS ORDERED: NS 500 ML IV ONE (21:15)
[2020-10-02 21:33] LABS: BASO % 0.3 % (0.0-1.0); EOS # 0.2 10^3/uL (0.0-0.5); EOS % 2.4 % (0.0-3.0); HEMATOCRIT 26.1 % (36.0-47.0); HEMOGLOBIN 8.2 g/dl (12.0-15.5); LYMPH # 1.2 10^3/uL (1.5-5.0); LYMPH % 18.1 % (24.0-44.0); MEAN CORPUSCULAR HEMOGLOBIN 33.2 pg (27.0-33.0); MEAN CORPUSCULAR HGB CONC 31.4 g/dl (32.0-36.5); MEAN CORPUSCULAR VOLUME 105.7 fl (80.0-96.0); MONO # 0.3 10^3/uL (0.0-0.8); MONO % 5.2 % (2.0-8.0); NEUTROPHILS # 4.9 10^3/uL (1.5-8.5); NEUTROPHILS % 73.5 % (36.0-66.0); PLATELET COUNT, AUTOMATED 364 10^3/uL (150-450); RED BLOOD COUNT 2.47 10^6/uL (4.00-5.40); WHITE BLOOD COUNT 6.6 10^3/uL (4.0-10.0)
[2020-10-02 21:50] VITALS: BP 86/48
[2020-10-02 22:05] LABS: CALCIUM LEVEL 8.2 MG/DL (8.8-10.2); GLOMERULAR FILTRATION RATE 55.8 (>32); MAGNESIUM LEVEL 1.9 MG/DL (1.8-2.4); POTASSIUM SERUM 3.8 MEQ/L (3.5-5.1)
[2020-10-02 22:29] VITALS: BP 90/46
[2020-10-03 02:21] VITALS: BP 99/47
[2020-10-03 06:00] VITALS: BP 99/46
[2020-10-03 06:40] LABS: BASO % 0.5 % (0.0-1.0); EOS # 0.2 10^3/uL (0.0-0.5); EOS % 3.4 % (0.0-3.0); HEMATOCRIT 23.1 % (36.0-47.0); HEMOGLOBIN 7.3 g/dl (12.0-15.5); LYMPH # 1.7 10^3/uL (1.5-5.0); MEAN CORPUSCULAR HEMOGLOBIN 33.6 pg (27.0-33.0); MEAN CORPUSCULAR HGB CONC 31.6 g/dl (32.0-36.5); MEAN CORPUSCULAR VOLUME 106.5 fl (80.0-96.0); MONO # 0.3 10^3/uL (0.0-0.8); MONO % 4.8 % (2.0-8.0); NEUTROPHILS % 63.8 % (36.0-66.0); PLATELET COUNT, AUTOMATED 330 10^3/uL (150-450); RED BLOOD COUNT 2.17 10^6/uL (4.00-5.40); WHITE BLOOD COUNT 6.2 10^3/uL (4.0-10.0)
[2020-10-03 07:13] LABS: ALBUMIN 2.6 GM/DL (3.2-5.2); ALT/SGPT 8 U/L (12-78); BILIRUBIN,TOTAL 0.8 MG/DL (0.2-1.0); BLOOD UREA NITROGEN 10 MG/DL (7-18); CALCIUM LEVEL 8.9 MG/DL (8.8-10.2); CARBON DIOXIDE LEVEL 29 MEQ/L (21-32); CHLORIDE LEVEL 107 MEQ/L (98-107); GLOMERULAR FILTRATION RATE > 60.0 (>32); GLUCOSE, FASTING 86 MG/DL (70-100); MAGNESIUM LEVEL 1.6 MG/DL (1.8-2.4); POTASSIUM SERUM 3.7 MEQ/L (3.5-5.1); SODIUM LEVEL 140 MEQ/L (136-145); TOTAL PROTEIN 5.1 GM/DL (6.4-8.2)
[2020-10-03] MEDS: PANTOPRAZOLE 40MG VIAL (C9113 PER 1) IV SCH ×2 (08:28→19:59)
[2020-10-03] MEDS: DOCUSATE SODIUM 100MG CAPSULE PO SCH ×2 (08:30→19:59)
[2020-10-03] MEDS: busPIRone 5 MG TAB PO SCH ×2 (08:30→20:00)
[2020-10-03] MEDS: VITAMIN D 1,000 INTERNATIONAL UNITS TABLET PO SCH (08:30)
[2020-10-03] MEDS: CARVedilol 6.25 MG TAB PO SCH (08:31)
[2020-10-03 10:00] VITALS: BP 98/42
[2020-10-03] MEDS ORDERED: MAGNESIUM OXIDE 400MG TAB (MAG-OX) PO ONE (11:10)
[2020-10-03 14:00] VITALS: BP 96/54
--- NOTE | 2020-10-03 15:26 | IPNPDOC ---
Text Note Date of Service The patient was seen on 10/03/20. NOTE Patient seen and examined by me this morning. The patient continues to be doing well. Had a colonoscopy and endoscopy which did not reveal anything. Because of her soft blood pressures. Her blood pressure medications have been held. Physical Examination General Exam: Alert. No physical acute distress. Eye Exam: PERRLA, Conjunctiva & lids normal (conjunctival pallor present), EOMI ENT Exam: Atraumatic, Mucous membr. moist/pink, Pharynx Normal, Tongue Midline Chest Exam: Clear to auscultation, Normal air movement; no Rales, Rhonchi, Wheezing Heart Exam: Rate Normal, Irregular Rhythm, Normal S1, Normal S2, Murmurs (GIRISH 2/6) Abdomen Exam: Normal bowel sounds, Soft, non-distended, no hepatosplenomegaly Extremity Exam: Normal pulses, upper and lower extremities Skin Exam: Nl turgor and temperature Neuro Exam: Normal Tone, Sensation Intact Psych Exam: Mental status NL, Memory Intact, Oriented x 3 Labs reviewed Radiology reviewed ASSESSMENT/PLAN: Pt is an 84-year-old female with a past medical history of COPD requiring 2L of oxygen, atrial fibrillation/SVT on anti-cognition with Xarelto, cor pulmonale, non-rheumatic valvular disease (aortic and mitral), hemochromatosis, diverticulitis, and VTE is here on hospital day 3 for an admission for GI bleed with resulting anemia. She reports a history of fatigue over the past six months.. She is status post colonoscopy and endoscopy. 1. Symptomatic anemia likely secondary to GI blood loss. The patient is on Xar elto which was held and the patient came with a hemoglobin of 5.7, status post 2 units of PRBCs. The patient's hemoglobin has been housing between 7-8. The patient got an endoscopy and colonoscopy by GI which did not reveal any acute pathology. Her Xarelto was restarted yesterday at a lower dose of 15 mg because of her GFR and her hemoglobin did drop by 0.8 units. We will evaluate other causes of anemia by doing a reticulocyte count and iron panel. The patient has been advised that looking at the risks and benefits of Xarelto and because after starting Xarelto. Her hemoglobin did drop by 0.8. She has more risks than benefits for her being on anti-cognition. She wants to discuss it with her cargo inspector before deciding anything about it. We'll try to talk to Dr. Ovalle the cargo inspector as well as myself. 2. Pancreatic Duct Dilation on Imaging: According to Dr. 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 Due to patient's advanced age and multiple comorbidities, especially cardiovascular disease, GI does not advise further evaluation at this time. 3. Atrial fibrillation with history of possible SVT and non-rheumatic valvular disease (aortic/mitral insufficiency): Home. Currently dose has been decreased to 3.125 at this time. Anti-cognition as above. 4. Right-sided heart failure with history of cor pulmonale: Likely manifestation of tobacco use history, and subsequent COPD: Continue to monitor. She is on Aldactone, which is continued. No need of any diuretics at this time. 5. COPD, O2-dependent : Patient on continuous oxygen therapy, 2 L NC at home. Continue home inhalers. 6. Anxiety/Depression Continue home medication: Mirtazapine and Buspar. DVT Prophylaxis: Currently on Xarelto. Disposition: PT, OT consult was done and the patient possibly is a candidate for aRU. The patient wants one day to think about it. VS,Fishbone, I+O VS, Fishbone, I+O Laboratory Tests 10/02/20 21:20 10/03/20 05:55 Vital Signs Date Time Temp Pulse Resp B/P (MAP) Pulse Ox O2 Delivery O2 Flow Rate FiO2 10/03/20 14:00 98.1 85 16 96/54 (68) 94 Room Air I&O- Last 24 Hours up to 6 AM 10/03/20 06:00 Intake Total 2810 ml Output Total 2 ml Balance 2808 ml MICHAEL BENNETT MD Oct 03, 2020 15:26
[2020-10-03] MEDS: MIRTAZAPINE 15 MG TAB PO SCH (17:36)
[2020-10-03 18:00] VITALS: BP 122/58
[2020-10-03] MEDS: CARVedilol 3.125 MG TAB PO SCH (20:00)
[2020-10-03 22:00] VITALS: BP 117/53
[2020-10-04] VITALS (10 sets, daily range): BP systolic 90–135; BP diastolic 49–100
[2020-10-04 06:34] LABS: BASO % 0.6 % (0.0-1.0); EOS # 0.2 10^3/uL (0.0-0.5); EOS % 3.5 % (0.0-3.0); HEMATOCRIT 22.4 % (36.0-47.0); LYMPH # 1.5 10^3/uL (1.5-5.0); LYMPH % 27.4 % (24.0-44.0); MEAN CORPUSCULAR HEMOGLOBIN 33.3 pg (27.0-33.0); MEAN CORPUSCULAR HGB CONC 31.3 g/dl (32.0-36.5); MEAN CORPUSCULAR VOLUME 106.7 fl (80.0-96.0); MONO # 0.3 10^3/uL (0.0-0.8); MONO % 5.5 % (2.0-8.0); NEUTROPHILS # 3.4 10^3/uL (1.5-8.5); NEUTROPHILS % 62.8 % (36.0-66.0); PLATELET COUNT, AUTOMATED 309 10^3/uL (150-450); WHITE BLOOD COUNT 5.4 10^3/uL (4.0-10.0)
[2020-10-04 07:00] LABS: ALBUMIN 2.5 GM/DL (3.2-5.2); ALT/SGPT 8 U/L (12-78); BILIRUBIN,TOTAL 0.4 MG/DL (0.2-1.0); BLOOD UREA NITROGEN 11 MG/DL (7-18); CALCIUM LEVEL 8.5 MG/DL (8.8-10.2); CARBON DIOXIDE LEVEL 30 MEQ/L (21-32); CHLORIDE LEVEL 108 MEQ/L (98-107); CREATININE FOR GFR 0.77 MG/DL (0.55-1.30); GLOMERULAR FILTRATION RATE > 60.0 (>32); GLUCOSE, FASTING 87 MG/DL (70-100); POTASSIUM SERUM 4.1 MEQ/L (3.5-5.1); SODIUM LEVEL 143 MEQ/L (136-145); TOTAL PROTEIN 4.7 GM/DL (6.4-8.2)
[2020-10-04] MEDS: VITAMIN D 1,000 INTERNATIONAL UNITS TABLET PO SCH (08:40)
[2020-10-04] MEDS: busPIRone 5 MG TAB PO SCH (08:40)
[2020-10-04] MEDS: SPIRONOLACTONE 12.5MG PER 1/2 TABLET PO SCH (08:41)
[2020-10-04] MEDS: CARVedilol 3.125 MG TAB PO SCH (08:41)
[2020-10-04] MEDS: PANTOPRAZOLE 40MG VIAL (C9113 PER 1) IV SCH (08:42)
[2020-10-04] MEDS: DOCUSATE SODIUM 100MG CAPSULE PO SCH (09:38)
--- NOTE | 2020-10-04 11:17 | IPNPDOC ---
Date Seen The patient was seen on 10/04/20. Progress Note SUBJECTIVE: Pt is an 84-year-old female with a past medical history of COPD requiring 2L of oxygen, atrial fibrillation/SVT, cor pulmonale, non-rheumatic valvular disease (aortic and mitral), hemochromatosis, diverticulitis, and VTE is here on hospital day 5 for an admission for anemia. She reports a history of fatigue over the past six months. She reports no overnight events today. She denies any abdominal tenderness at this time. Patient feels tired and reports that she ate mayo for breakfast, and named many different meals including pizza. After speaking with the nursing staff, they confirmed that she is on the 2g sodium diet and ate 75% of her breakfast, 50% of her lunch, and 100% of her dinner. OBJECTIVE: Physical Examination General Exam: Alert, Cooperative. No acute distress. Thin elderly white female, asleep when I came to evaluate her, easily aroused from sleep. Eye Exam: Pale conjunctiva, PERRLA, Conjunctiva & lids normal (conjunctival pallor present), EOMI ENT Exam: Atraumatic, Oral Mucous membr. moist/pink, Pharynx Normal, Tongue Midline Neck Exam: Supple Chest Exam: Clear to auscultation, Normal air movement; no Rales, Rhonchi, Wheezing Heart Exam: Rate Normal, Irregular Rhythm, Normal S1, Normal S2, Murmurs (GIRISH 2/6) Abdomen Exam: Normal bowel sounds, Soft, non-distended, no hepatosplenomegaly Extremity Exam: Normal pulses, upper and lower extremities Skin Exam: Nl turgor and temperature Neuro Exam: Normal Tone, Sensation Intact Psych Exam: Mental status NL, Memory Intact, Oriented x 3 Spine: Pt has severe levoscoliosis and kyphosis. ASSESSMENT/PLAN: #Hypotensive episode secondary to acute GI bleed. Patient has been having good systolic blood pressures today, although they do still remain soft. Pt has no neurological/cardiac sequelae from soft blood pressures. #Acute blood loss anemia 2/2 Acute GI bleed with history of fatigue -Pt's fatigue is likely secondary to anemia and poor oral intake. -Stool occult was positive in ED, initial hemoglobin of 5.7 on admission. -Threshold to transfuse blood products is Hgb: 7.0, particularly considering medical history of cor pulmonale. Patient is s/p one unit PRBC transfusion on 09/29/2020, Hgb responded well and improved to 8.2; today, pt's Hgb is 7.0, it started trending down after she received Xarelto on 10/02/2020. Patient's Xarelto dose (home medication for atrial fibrillation) is being held due to a drop on 0.9 in Hbg after the 10/02/[address] Joe, c ardiologist at pt's cardiology office, also agreed that the patient should Iron studies showed: normal ferritin levels, but low iron, consistent with GI bleed on Xarelto. EGD and colonoscopy did not show any acute sources of blood loss. 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 Due to patient's advanced age and multiple comorbidities, especially cardiovascular disease, GI does not advise further evaluation at this time. #Atrial fibrillation with history of possible SVT and non-rheumatic valvular disease (aortic/mitral insufficiency) -Continue to hold Xarelto in setting of acute GI bleed. -Will consider restarting Xarelto pending colonoscopy results. -pt was given her carvedilol last night at 8 pm. #RHF with history of cor pulmonale Likely manifestation of tobacco use history, and subsequent COPD Patient appears to be hypo-/euvolemic on exam -no crackles nor LE edema on exam today home spironolactone and carvedilol currently held in setting of softer BPs. -continue to monitor Is & Os, and UO. #COPD, O2-dependent Patient on continuous oxygen therapy, 2 L NC at home Patient is not in COPD exacerbation at this time Patient is a former smoker -Continue O2 therapy, with titration orders specific to COPD pathophysiology. #Reported history of Hemochromatosis. Iron low according to iron studies here. Low iron likely an anemia manifestation from acute GI bleed. #Reported h/o unspecified GERD -Continue Protonix BID. #Anxiety/Depression -Continue home medication: Mirtazapine and Buspar. DVT Prophylaxis: Home Xarelto held, TEDS and sequentials ordered in the setting of acute GI bleed. Disposition: Discharge to ARU considered. VS, I&O, 24H, Fishbone Vital Signs/I&O Vital Signs Date Time Temp Pulse Resp B/P (MAP) Pulse Ox O2 Delivery O2 Flow Rate FiO2 10/04/20 06:00 98.2 71 16 108/49 (68) 99 Nasal Cannula 2.0 I&O- Last 24 Hours up to 6 AM 10/04/20 06:00 Intake Total 1405 ml Output Total 0 ml Balance 1405 ml Laboratory Data 24H LABS Laboratory Tests 2 10/04/20 06:15: Immature Granulocyte % (Auto) 0.2, Neutrophils (%) (Auto) 62.8, Lymphocytes (%) (Auto) 27.4, Monocytes (%) (Auto) 5.5, Eosinophils (%) (Auto) 3.5H, Basophils (%) (Auto) 0.6, Neutrophils # (Auto) 3.4, Lymphocytes # (Auto) 1.5, Monocytes # (Auto) 0.3, Eosinophils # (Auto) 0.2, Basophils # (Auto) 0.0, Nucleated Red Blood Cells % (auto) 0.0, Anion Gap 5L, Glomerular Filtration Rate > 60.0, Calcium Level 8.5L, Magnesium Level 2.0, Total Bilirubin 0.4, Aspartate Amino Transf (AST/SGOT) 13, Alanine Aminotransferase (ALT/SGPT) 8L, Alkaline Phosphatase 43L, Total Protein 4.7L, Albumin 2.5L, Albumin/Globulin Ratio 1.1L CBC/BMP Laboratory Tests 10/04/20 06:15 GME ATTESTATION GME ATTESTATION My faculty preceptor for this patient encounter was physically present during the encounter and was fully available. All aspects of the patient interview, examination, medical decision making process, and medical care plan development were reviewed and approved by the faculty preceptor. The faculty preceptor is aware and concurs with the plan as stated in the body of this note and will attest to such by his/her cosignature. Kashif Garza DO Oct 04, 2020 08:48
--- NOTE | 2020-10-04 11:43 | DS.PDOC ---
Discharge Summary General Date of Admission September 29, 2020 at 22:01 Date of Discharge 10/04/2020 Attending Physician: MICHAEL BENNETT MD Discharge Summary PROCEDURES PERFORMED DURING STAY: EGD, colonoscopy. ADMITTING DIAGNOSES: 1. Acute GI bleed. 2. Atrial fibrillation with h/o SVT, non-rheumatic valvular disease 3. RHF with h/o cor pulmonale 4. COPD, O2-dependent 5. H/o Hemochromatosis 6. GERD 7. Anxiety/Depression DISCHARGE DIAGNOSES: 1. Acute GI bleed. 2. 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 Hypotensive episodes 2/2 acute GI bleed. 4. Atrial fibrillation with h/o SVT, non-rheumatic valvular disease 5. RHF with h/o cor pulmonale 6. COPD, O2-dependent 7. H/o Hemochromatosis 8. GERD 9. Anxiety/Depression COMPLICATIONS/CHIEF COMPLAINT: Gi Bleed,Symptomatic Anemia. HISTORY OF PRESENT ILLNESS: 84 yo F with a PMHx of COPD on 2L/min O2, Afib/SVT on xarelto, cor pulmonale, presented to ER c/o weakness and fatigue for several weeks and an episode of BRBPR 3 days ago without further bowel movements since. On arrival to ER, Hgb 5.7. Stool occult positive in ER. HOSPITAL COURSE: The patient received one unit of PRBCs, while ASA, Xarelto were held. This resulted in an increase of Hgb up to 8.2. The patient had soft BPs, requiring some of her HF medications to be held, including carvedilol and spironolactone. Dr. Kendall, the bulk tank car unloader evaluated the patient and did an EGD and colonoscopy and did not find any sources of bleeds. 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 Dr. Kendall noted that he is not considering further evaluation of the pancreas due to pt's comorbidities. On 10/02/2020, the Xarelto was restarted at 15 mg, considering patient's creatinine clearance of 30. On 10/03/2020, patient's hemoglobin had dropped to 7.3. On 10/04/2020, the patient had a hemoglobin of 7.0. Risks and benefits were discussed with the patient and with the patient's trapeze artist, Dr. Joe. Dr. Joe suggested that the Xarelto be held due to the major GI bleeding that occurs with Xarelto use. The pt will need to follow-up with cardiology to commence optimizing treatment for atrial fibrillation. The patient's carvedilol was decreased to 3.125mg BID. However, right now, given the severe drop in Hgb, Xarelto was held. The patient verbalized understanding. The patient was transfused with an additional packed red blood cell unit due to patient's threshold of 7.0, hemoglobin. However, the patient is otherwise stable and therefore, being discharged to acute rehabilitation unit at this time. DISCHARGE MEDICATIONS: Please see below. ALLERGIES: Please see below. PHYSICAL EXAMINATION ON DISCHARGE: VITAL SIGNS: Please see below. General Exam: Alert, Cooperative. No acute distress. Thin elderly white female, asleep when I came to evaluate her, easily aroused from sleep. Eye Exam: Pale conjunctiva, PERRLA, Conjunctiva & lids normal (conjunctival pallor present), EOMI ENT Exam: Atraumatic, Oral Mucous membr. moist/pink, Pharynx Normal, Tongue Midline Neck Exam: Supple Chest Exam: Clear to auscultation, Normal air movement; no Rales, Rhonchi, Wheezing Heart Exam: Rate Normal, Irregular Rhythm, Normal S1, Normal S2, Murmurs (GIRISH 2/6) Abdomen Exam: Normal bowel sounds, Soft, non-distended, no hepatosplenomegaly Extremity Exam: Normal pulses, upper and lower extremities Skin Exam: Nl turgor and temperature Neuro Exam: Normal Tone, Sensation Intact Psych Exam: Mental status NL, Memory Intact, Oriented x 3 Spine: Pt has severe levoscoliosis and kyphosis. LABORATORY DATA: Please see below. IMAGING: CT abdomen and pelvis 09/29/2020: 1. 1.Colonic diverticulosis with resolution of sigmoid diverticulitis since 03/15/2020. 2. Interval compression of L5 with inferior endplate depression and decreased height which is of uncertain age. 3. Moderate hiatal hernia. 4. Mild bilateral lower lobe fibro-atelectatic change which appears to be similar to the prior study. 5. Slight distention of the pancreatic duct to the level of the ampulla measuring 5 mm which is slightly increased since the prior study. PROGNOSIS: Fair ACTIVITY: As tolerated. DIET: 2 g sodium diet DISPOSITION: Discharged to ARU. DISCHARGE INSTRUCTIONS: 1. Please keep holding parameters on pt's cardiovascular medications: carvedilol and spironolactone. 2. Please arrange for cardiology follow-up to follow up on atrial fibrillation treatment, since Xarelto is being held at this time. 3. Carvedilol dosage is being decreased to 3.125 mg due to her soft BPs. Follow- up appointment with cardiology needed within the next 3 days. 4. Continue rehabilitation at [facility]. 5. Continue following pt's CBC after blood transfusion was administered. 6. Pt also needs to follow-up with PCP to optimize atrial fibrillation treatment and for post-hospitalization follow-up. DISCHARGE CONDITION: Stable. TIME SPENT ON DISCHARGE: Greater than 34 minutes. Vital Signs/I&Os Vital Signs Date Time Temp Pulse Resp B/P (MAP) Pulse Ox O2 Delivery O2 Flow Rate FiO2 10/04/20 08:41 69 108/49 10/04/20 06:00 98.2 16 99 Nasal Cannula 2.0 I&O- Last 24 Hours up to 6 AM 10/04/20 06:00 Intake Total 1405 ml Output Total 0 ml Balance 1405 ml Laboratory Data Labs 24H Laboratory Tests 2 10/04/20 06:15: Immature Granulocyte % (Auto) 0.2, Neutrophils (%) (Auto) 62.8, Lymphocytes (%) (Auto) 27.4, Monocytes (%) (Auto) 5.5, Eosinophils (%) (Auto) 3.5H, Basophils (%) (Auto) 0.6, Neutrophils # (Auto) 3.4, Lymphocytes # (Auto) 1.5, Monocytes # (Auto) 0.3, Eosinophils # (Auto) 0.2, Basophils # (Auto) 0.0, Nucleated Red Blood Cells % (auto) 0.0, Anion Gap 5L, Glomerular Filtration Rate > 60.0, Calcium Level 8.5L, Magnesium Level 2.0, Total Bilirubin 0.4, Aspartate Amino Transf (AST/SGOT) 13, Alanine Aminotransferase (ALT/SGPT) 8L, Alkaline Phosphatase 43L, Total Protein 4.7L, Albumin 2.5L, Albumin/Globulin Ratio 1.1L CBC/BMP Laboratory Tests 10/04/20 06:15 Discharge Medications Scheduled Buspirone HCl (Buspirone HCl) 15 Mg Tablet, 15 MG PO BID, (Reported) Carvedilol (Carvedilol) 3.125 Mg Tablet, 6.25 MG PO BID, (Reported) Cholecalciferol (Vitamin D3) (Vitamin D3) 1,000 Unit Tablet, 1,000 UNITS PO DAILY, (Reported) Megestrol Acetate (Megestrol Acetate) 400 Mg/10 Ml Oral.susp, 400 MG PO DAILY, (Reported) Mirtazapine (Remeron) 30 Mg Tablet, 30 MG PO QPM, (Reported) TAKES AT DINNER Pantoprazole Sodium (Pantoprazole Sodium) 40 Mg Tablet.dr, 40 MG PO DAILY, (Reported) Rivaroxaban (Xarelto) 20 Mg Tablet, 20 MG PO QPM, (Reported) TAKES AT DINNER Spironolactone (Spironolactone) 25 Mg Tablet, 12.5 MG DAILY, (Reported) Allergies Coded Allergies: No Known Allergies (Unverified , 07/09/20) GME ATTESTATION My faculty preceptor for this patient encounter was physically present during the encounter and was fully available. All aspects of the patient interview, examination, medical decision making process, and medical care plan development were reviewed and approved by the faculty preceptor. The faculty preceptor is aware and concurs with the plan as stated in the body of this note and will attest to such by his/her cosignature. Kashif Garza DO Oct 04, 2020 11:43
[2020-10-04] MEDS ORDERED: SPIR-10 MT (12:01)
[2020-10-04] MEDS ORDERED: CARV3.12 PO (12:01)
[2020-10-04] MEDS ORDERED: MAGNESIUM OXIDE 400MG TAB (MAG-OX) PO ONE (13:00)
[2020-10-04] MEDS: MIRTAZAPINE 15 MG TAB PO SCH (18:21)
== END 2020-10-04 20:00 | DRG 378 ==
LOC: M ED 18:06 → M ED INP 22:01 → ENRESERV 22:18 → M MSPAV 23:36
PROVIDERS: ADMIT Family Medicine; ATTEND Internal Medicine
PROC: 30233N1 Transfusion of Nonautologous Red Blood Cells into Peripheral Vein, Percutaneous Approach (ICD-10-PCS; principal; 2020-09-29)
PROC: 0DJ08ZZ Inspection of Upper Intestinal Tract, Via Natural or Artificial Opening Endoscopic (ICD-10-PCS; 2020-10-02)
PROC: 0DJD8ZZ Inspection of Lower Intestinal Tract, Via Natural or Artificial Opening Endoscopic (ICD-10-PCS; 2020-10-02)
DX: K92.2 Gastrointestinal hemorrhage, unspecified (principal); D62 Acute posthemorrhagic anemia; I48.20 Chronic atrial fibrillation, unspecified; Q45.3 Other congenital malformations of pancreas and pancreatic duct; J44.9 Chronic obstructive pulmonary disease, unspecified; Z99.81 Dependence on supplemental oxygen; Z66 Do not resuscitate; I27.81 Cor pulmonale (chronic); I08.0 Rheumatic disorders of both mitral and aortic valves; E83.119 Hemochromatosis, unspecified; K86.89 Other specified diseases of pancreas; I80.00 Phlebitis and thrombophlebitis of superficial vessels of unspecified lower extremity; Z98.41 Cataract extraction status, right eye; Z90.49 Acquired absence of other specified parts of digestive tract; Z90.79 Acquired absence of other genital organ(s); Z87.891 Personal history of nicotine dependence; R53.1 Weakness; I50.810 Right heart failure, unspecified; K21.9 Gastro-esophageal reflux disease without esophagitis; F41.9 Anxiety disorder, unspecified; F32.9 Major depressive disorder, single episode, unspecified; Z20.822 Contact with and (suspected) exposure to COVID-19; Z79.01 Long term (current) use of anticoagulants; Z79.899 Other long term (current) drug therapy; I95.9 Hypotension, unspecified; K44.9 Diaphragmatic hernia without obstruction or gangrene; K57.30 Diverticulosis of large intestine without perforation or abscess without bleeding

== ENCOUNTER 2020-10-04 10:47 | Inpatient (IN) | payer MEDICARE ==
[~2020-10-04] VITALS: Ht 152.4 cm; Wt 41.4 kg
[~2020-10-04 10:47] MED LIST changes: +MIRT-60; +SPIR-10
[2020-10-04] MEDS ORDERED: SPIR-10 MT (12:01)
[2020-10-04] MEDS ORDERED: CARV3.12 PO (12:01)
[2020-10-04 20:30] VITALS: BP 133/60
[2020-10-04] MEDS ORDERED: ACETAMINOPHEN TAB 650MG DOSE (2X325MG) PO PRN (22:05)
[2020-10-04] MEDS ORDERED: BISACODYL 10 MG SUPP PR PRN (22:05)
[2020-10-04] MEDS: busPIRone 5 MG TAB PO SCH (22:32)
[2020-10-04] MEDS: PANTOPRAZOLE 40MG TAB (PROTONIX) PO SCH (22:32)
[2020-10-04] MEDS: SENNA 8.6 MG TAB (SENOKOT) PO SCH (22:32)
[2020-10-04] MEDS: CARVedilol 3.125 MG TAB PO SCH (22:32)
[2020-10-05 05:40] VITALS: BP 122/56
[2020-10-05] MEDS: REMEDY PHYTOPLEX Z-GUARD PASTE 113GM TUBE (FROM STOREROOM PRODUCT) TOP SCH ×3 (09:00→21:00)
[2020-10-05] MEDS: PANTOPRAZOLE 40MG TAB (PROTONIX) PO SCH ×2 (09:35→21:03)
[2020-10-05] MEDS: DOCUSATE SODIUM 100MG CAPSULE PO SCH ×2 (09:35→21:03)
[2020-10-05] MEDS: SPIRONOLACTONE 12.5MG PER 1/2 TABLET PO SCH (09:35)
[2020-10-05] MEDS: CARVedilol 3.125 MG TAB PO SCH ×2 (09:35→21:03)
[2020-10-05] MEDS: VITAMIN D 1,000 INTERNATIONAL UNITS TABLET PO SCH (09:35)
[2020-10-05] MEDS: busPIRone 5 MG TAB PO SCH ×2 (09:36→21:03)
[2020-10-05 10:12] LABS: BASO % 0.7 % (0.0-1.0); EOS # 0.2 10^3/uL (0.0-0.5); EOS % 3.3 % (0.0-3.0); HEMATOCRIT 31.8 % (36.0-47.0); LYMPH # 1.2 10^3/uL (1.5-5.0); LYMPH % 20.8 % (24.0-44.0); MEAN CORPUSCULAR HEMOGLOBIN 33.1 pg (27.0-33.0); MEAN CORPUSCULAR HGB CONC 32.1 g/dl (32.0-36.5); MEAN CORPUSCULAR VOLUME 103.2 fl (80.0-96.0); MONO # 0.2 10^3/uL (0.0-0.8); PLATELET COUNT, AUTOMATED 357 10^3/uL (150-450); RED BLOOD COUNT 3.08 10^6/uL (4.00-5.40); WHITE BLOOD COUNT 5.7 10^3/uL (4.0-10.0)
[2020-10-05 10:14] LABS: HEMOGLOBIN 10.2 g/dl (12.0-15.5)
[2020-10-05 10:42] LABS: BLOOD UREA NITROGEN 12 MG/DL (7-18); CALCIUM LEVEL 9.1 MG/DL (8.8-10.2); CARBON DIOXIDE LEVEL 31 MEQ/L (21-32); CHLORIDE LEVEL 106 MEQ/L (98-107); GLOMERULAR FILTRATION RATE > 60.0 (>32); GLUCOSE, FASTING 68 MG/DL (70-100); POTASSIUM SERUM 3.8 MEQ/L (3.5-5.1); SODIUM LEVEL 142 MEQ/L (136-145)
--- NOTE | 2020-10-05 13:10 | HPEPDOC ---
Chairperson Anesthesiology Note DATE OF ADMISSION: 10-04-20 DATE OF SERVICE: 10-05-20 TIME OF ADMISSION: Please refer to physician's admission order. SOURCE OF ADMISSION INFORMATION: [facility] record and patient CHIEF COMPLAINT: weakness in setting of GI bleed HISTORY OF PRESENT ILLNESS: 85F pmh COPD on home 02, GERD, Afib on xarelto, Cor pulmonale, paroxysmal SVTs, mitral and aortic valve insufficiency, hemochromatosis, VTE presented to [facility] on 09-29-20 with severe weakness and reports of a bloody bowel movement. She had a + FOBT, a hemoglobin of 5.7 and was admitted for anemia work-up. She received blood transfusions and was evaluated by GI. On 10-02-20 Dr. Kendall performed an EGD showing large hiatal hernia, deemed to be the cause of her iron deficiency and colonoscopy showing severe diverticulitis and internal hemorrhoids. GI recommended oral iron supplements, avoid NSAIDs, and to start PPI. CT abdomen pelvis did show a dilated pancreatic duct which GI did not advise further work- up. She was noted to have impairments in mobility and ADLs and deemed medically appropriate for discharge to ARU. REVIEW OF SYSTEMS: The following is a completed review of systems and has been reviewed. Review of systems otherwise unremarkable. PAIN: Patient self reports no pain EYES: No recent vision changes EARS, NOSE, & THROAT: No throat pain, or dysphagia, or rhinorrhea CARDIOVASCULAR: Denies chest pain or palpitations PULMONARY: Denies shortness of breath GASTROINTESTINAL: Denies constipation/diarrhea GENITOURINARY: denies dysuria MUSCULOSKELETAL: generalized weakness NEUROLOGICAL:denies tremors or paresthesias HEMATOLOGICAL: +anemia SKIN: denies rash PSYCHIATRIC: Unremarkable All other review of systems found to be negative. PAST MEDICAL HISTORY: as per HPI PAST SURGICAL HISTORY: appendectomy, left oophorectomy, right cataract, coronary angiogram ALLERGIES: Please see below. MEDICATIONS: Please see below. SOCIAL HISTORY: former smoker, no etoh/illicit drugs DIET: low sodium PHYSICAL EXAMINATION: VITAL SIGNS: Please see below. GENERAL: Pleasant and cooperative. No acute distress. HEENT: PERRL. Extraocular movements intact. Clear conjunctiva CARDIOVASCULAR: Regular rate and rhythm. No murmurs, rubs, or gallops LUNGS: Clear to auscultation bilaterally. No wheezes. No rhonchi ABDOMEN: Soft, nontender, nondistended. Positive bowel sounds. Normal active bowel sounds NEUROLOGICAL: Alert and oriented times three. Cranial nerves II through XII grossly intact. Sensation grossly intact EXTREMITIES: 4+\5 strength bilateral upper extremities. 4+\5 strength right lower extremity. 4+/5 strength in left lower extremity. +kyphotic LABORATORY DATA: Please see below. IMAGING:Imaging documentation personally reviewed by record FUNCTIONAL STATUS: Premorbid: Independent with all activities of daily life as well as mobility On Admission: stand-by assist for bed mobility, functional transfers, ambulation, toileting, dressing, bathing GOALS: mod-i for bed mobility, functional transfers, ambulation, toileting, dressing, bathing ASSESSMENT:85 year-old F with past medical history of afib who presents status post GI bleed with weakness PLAN: 1. Rehab- PT/OT advance mobility and ADLs, strengthen/stretch/maintain ROM all 4 limbs 2. Cardiac- hx of cor pulmonale, daily weights, fluid restrict, c/u aldactone -Afib c/u coreg and renally dosed xarelto - medicine consulted to assist in overall management 3. Resp- hx of COPD on , c/u inhalers, monitor for infection 4. GI- recent GI bleed with + FOBT with colonoscopy + severe diverticulitis and internal hemorrhoids -EGD + hiatal hernia c/u iron supplements -f/u GI outpatient 5. DVT ppx- on xarelto 6. Pain- tylenol prn 7. Psych- on remeron 8. Heme- s/p 2 prbc transfusion for GI blood loss with SUKHI, c/u iron supplelemt, c/u prbc transfusion if Hgb <8 9. Dispo- TBD POST ADMISSION PHYSICIAN EVALUATION: Medical and functional status: Description of medical status, medical assessment: As above. Rehabilitation diagnosis and current and prior cold morbid medical conditions as above. Risk of complications and plans to mitigate them as above. Description of functional status current status is as above. Prior status as above. Status compared to preadmission: There are no clinically significant differences between the patient's current status and the information described on the preadmission screening document. Treatment plan anticipated: Treatment plan is as described above. Required disciplines including physical therapy, occupational therapy, others as noted above Intensity of services: 3 hours a day, 6 days a week. Special considerations:There are no specific special or safety considerations that would likely preclude immediate implementation of an intensive rehabilitation program or subsequently influence the plan of care. ATTESTATION: Considering all the information above, it is my best judgment that this patient requires intensive rehabilitation therapy as described above and an inpatient hospital environment due to the complexity of nursing, medical, and rehabilitation needs required by the patient. Furthermore, this patient can reasonably be expected to participate in an benefit from an inpatient rehabilitation stay with an interdisciplinary team approach to the delivery of rehabilitation care under the direction and supervision of rehabilitation physician. PROGNOSIS: good ESTIMATED LENGTH OF STAY:7-10 days. PROJECTED DISCHARGE DESTINATION: Home with family support and any durable medical equipment required to increase functional safety and mobility TIME SPENT COUNSELING AND COORDINATING INITIAL CARE: Greater than 70 minutes. Vital Signs Vital Sign - Last 24 Hours 10/04/20 10/04/20 10/05/20 10/05/20 20:30 22:32 05:40 09:35 Temp 98.6 98.1 Pulse 90 90 69 81 Resp 19 18 B/P (MAP) 133/60 (84) 133/60 122/56 (78) 121/58 Pulse Ox 97 94 O2 Delivery Room Air Room Air Laboratory Data CBC/BMP Laboratory Tests 10/05/20 09:44 Labs 24H Laboratory Tests 2 10/05/20 09:44: Immature Granulocyte % (Auto) 0.2, Neutrophils (%) (Auto) 71.0H, Lymphocytes (%) (Auto) 20.8L, Monocytes (%) (Auto) 4.0, Eosinophils (%) (Auto) 3.3H, Basophils (%) (Auto) 0.7, Neutrophils # (Auto) 4.0, Lymphocytes # (Auto) 1.2L, Monocytes # (Auto) 0.2, Eosinophils # (Auto) 0.2, Basophils # (Auto) 0.0, Nucleated Red Blood Cells % (auto) 0.0, Anion Gap 5L, Glomerular Filtration Rate > 60.0, Calcium Level 9.1 Home Medications Scheduled Buspirone HCl (Buspirone HCl) 15 Mg Tablet, 15 MG PO BID, (Reported) Carvedilol (Carvedilol) 3.125 Mg Tablet, 3.125 MG PO BID Cholecalciferol (Vitamin D3) (Vitamin D3) 1,000 Unit Tablet, 1,000 UNITS PO DAILY, (Reported) Megestrol Acetate (Megestrol Acetate) 400 Mg/10 Ml Oral.susp, 400 MG PO DAILY, (Reported) Mirtazapine (Remeron) 30 Mg Tablet, 30 MG PO QPM, (Reported) TAKES AT DINNER Pantoprazole Sodium (Pantoprazole Sodium) 40 Mg Tablet.dr, 40 MG PO DAILY, (Reported) Spironolactone (Spironolactone) 25 Mg Tablet, 12.5 MG MT DAILY Allergies Coded Allergies: No Known Allergies (Unverified , 07/09/20) A-FIB/CHADSVASC A-FIB History Current/History of A-Fib/PAF?: Yes Current PO Anticoag Therapy: Yes DEVONTE TABOR MD Oct 05, 2020 13:10
[2020-10-05 14:00] VITALS: BP 105/52
[2020-10-05] MEDS: MIRTAZAPINE 15 MG TAB PO SCH (17:31)
--- NOTE | 2020-10-05 18:45 | IPNPDOC ---
Subjective Date Seen The patient was seen on 10/05/20. VS[facility]/I&O Vital Signs Date Time Temp Pulse Resp B/P (MAP) Pulse Ox O2 Delivery O2 Flow Rate FiO2 10/05/20 14:00 97.2 82 20 105/52 (69) 98 Room Air Laboratory Data 24H LABS Laboratory Tests 2 10/05/20 09:44: Immature Granulocyte % (Auto) 0.2, Neutrophils (%) (Auto) 71.0H, Lymphocytes (%) (Auto) 20.8L, Monocytes (%) (Auto) 4.0, Eosinophils (%) (Auto) 3.3H, Basophils (%) (Auto) 0.7, Neutrophils # (Auto) 4.0, Lymphocytes # (Auto) 1.2L, Monocytes # (Auto) 0.2, Eosinophils # (Auto) 0.2, Basophils # (Auto) 0.0, Nucleated Red Blood Cells % (auto) 0.0, Anion Gap 5L, Glomerular Filtration Rate > 60.0, Calcium Level 9.1 CBC/BMP Laboratory Tests 10/05/20 09:44 Benny Lopez MD Oct 05, 2020 18:45
[2020-10-05 20:00] VITALS: BP 113/58
[2020-10-05] MEDS: SENNA 8.6 MG TAB (SENOKOT) PO SCH (21:03)
[2020-10-06 05:46] VITALS: BP 100/48
[2020-10-06 06:47] LABS: HEMATOCRIT 29.2 % (36.0-47.0); HEMOGLOBIN 9.1 g/dl (12.0-15.5); MEAN CORPUSCULAR HEMOGLOBIN 31.8 pg (27.0-33.0); MEAN CORPUSCULAR HGB CONC 31.2 g/dl (32.0-36.5); MEAN CORPUSCULAR VOLUME 102.1 fl (80.0-96.0); PLATELET COUNT, AUTOMATED 299 10^3/uL (150-450); RED BLOOD COUNT 2.86 10^6/uL (4.00-5.40); WHITE BLOOD COUNT 7.7 10^3/uL (4.0-10.0)
[2020-10-06] MEDS: REMEDY PHYTOPLEX Z-GUARD PASTE 113GM TUBE (FROM STOREROOM PRODUCT) TOP SCH ×3 (09:00→20:34)
[2020-10-06 09:17] VITALS: BP 110/53
[2020-10-06] MEDS: PANTOPRAZOLE 40MG TAB (PROTONIX) PO SCH ×2 (09:18→20:32)
[2020-10-06] MEDS: VITAMIN D 1,000 INTERNATIONAL UNITS TABLET PO SCH (09:18)
[2020-10-06] MEDS: DOCUSATE SODIUM 100MG CAPSULE PO SCH ×2 (09:18→20:32)
[2020-10-06] MEDS: SPIRONOLACTONE 12.5MG PER 1/2 TABLET PO SCH (09:18)
[2020-10-06] MEDS: CARVedilol 3.125 MG TAB PO SCH ×2 (09:19→20:32)
[2020-10-06] MEDS: busPIRone 5 MG TAB PO SCH ×2 (09:19→20:32)
[2020-10-06 14:00] VITALS: BP 120/58
[2020-10-06 16:49] VITALS: BP 100/52
[2020-10-06] MEDS: MIRTAZAPINE 15 MG TAB PO SCH (17:25)
[2020-10-06 20:00] VITALS: BP 121/61
[2020-10-06] MEDS: SENNA 8.6 MG TAB (SENOKOT) PO SCH (20:32)
[2020-10-07 06:00] VITALS: BP 107/56
[2020-10-07 07:10] LABS: BASO % 0.5 % (0.0-1.0); EOS # 0.1 10^3/uL (0.0-0.5); EOS % 2.6 % (0.0-3.0); HEMATOCRIT 26.7 % (36.0-47.0); HEMOGLOBIN 8.3 g/dl (12.0-15.5); LYMPH # 1.6 10^3/uL (1.5-5.0); LYMPH % 37.9 % (24.0-44.0); MEAN CORPUSCULAR HEMOGLOBIN 31.8 pg (27.0-33.0); MEAN CORPUSCULAR HGB CONC 31.1 g/dl (32.0-36.5); MEAN CORPUSCULAR VOLUME 102.3 fl (80.0-96.0); MONO # 0.3 10^3/uL (0.0-0.8); MONO % 6.1 % (2.0-8.0); NEUTROPHILS # 2.2 10^3/uL (1.5-8.5); NEUTROPHILS % 52.4 % (36.0-66.0); PLATELET COUNT, AUTOMATED 261 10^3/uL (150-450); RED BLOOD COUNT 2.61 10^6/uL (4.00-5.40); WHITE BLOOD COUNT 4.3 10^3/uL (4.0-10.0)
[2020-10-07 07:40] LABS: ALBUMIN 2.5 GM/DL (3.2-5.2); ALT/SGPT 10 U/L (12-78); BILIRUBIN,TOTAL 0.5 MG/DL (0.2-1.0); BLOOD UREA NITROGEN 20 MG/DL (7-18); CALCIUM LEVEL 8.6 MG/DL (8.8-10.2); CARBON DIOXIDE LEVEL 29 MEQ/L (21-32); CHLORIDE LEVEL 105 MEQ/L (98-107); GLOMERULAR FILTRATION RATE > 60.0 (>32); GLUCOSE, FASTING 85 MG/DL (70-100); POTASSIUM SERUM 3.6 MEQ/L (3.5-5.1); SODIUM LEVEL 140 MEQ/L (136-145); TOTAL PROTEIN 5.2 GM/DL (6.4-8.2)
[2020-10-07] MEDS: busPIRone 5 MG TAB PO SCH ×2 (09:35→20:43)
[2020-10-07] MEDS: PANTOPRAZOLE 40MG TAB (PROTONIX) PO SCH ×2 (09:35→20:41)
[2020-10-07] MEDS: SPIRONOLACTONE 12.5MG PER 1/2 TABLET PO SCH (09:35)
[2020-10-07] MEDS: VITAMIN D 1,000 INTERNATIONAL UNITS TABLET PO SCH (09:35)
[2020-10-07] MEDS: DOCUSATE SODIUM 100MG CAPSULE PO SCH ×2 (09:35→20:41)
[2020-10-07] MEDS: REMEDY PHYTOPLEX Z-GUARD PASTE 113GM TUBE (FROM STOREROOM PRODUCT) TOP SCH ×3 (09:36→20:44)
[2020-10-07] MEDS: CARVedilol 3.125 MG TAB PO SCH ×2 (09:41→20:44)
[2020-10-07 14:00] VITALS: BP 115/56
[2020-10-07] MEDS: MIRTAZAPINE 15 MG TAB PO SCH (17:13)
[2020-10-07] MEDS ORDERED: FUROSEMIDE 20 MG TAB PO ONE (17:35)
--- NOTE | 2020-10-07 19:20 | IPNPDOC ---
Text Note Date of Service The patient was seen on 10/07/20. NOTE Went to see Ms. Benson today at the request of Dr. Lundberg because she has been c omplaining from intermittent palpitations. She tells me that when she is walking down the corridor. She feels sometimes that her heart is racing, but no one is paying attention to her heart. She tells me she has had this problem with her heart and palpitations for years. She denies any shortness of breath or any chest pain. . She does have some swelling in both of her feet. On physical exam, her vitals are stable She has irregularly irregular heart rate with diastolic murmur best heard at the base , rate is controlled She has severe thoracic kyphoscoliosis Chest diminished breath sounds overall. No rhonchi or wheezing Abdomen soft, nontender. Bowel sounds normal Extremities bipedal edema, mostly in the dorsum of feet. Cardiac work up in the Past: Had catheterization October 2006, which showed normal left ventricular ejection fraction of 68%, left ventricular end-diastolic pressure of 17 mmHg, but normal coronary arteries. Echo in 2006 Echocardiogram/Doppler study in our office September 07, 2007, again showed these findings with septal wall motion abnormality due to right ventricular pressure overload yet preserved global left ventricular systolic function with estimated left ventricular ejection fraction (LVEF). Left ventricular diastolic function was normal. Estimated right ventricular systolic pressure was markedly elevated at 77 mmHg. Her estimated central venous pressure was 20 mmHg. She did have aortic valvular sclerosis without stenosis and only mild aortic insufficiency. She had moderate mitral annular calcification with moderate insufficiency. Her tricuspid valve appeared to be normal, but had severe insufficiency. She had another echo in 2013 which did not show any change. Holter monitor September 07, 2007 showed underlying sinus rhythm with extremely frequent premature atrial contractions (PACs) occurring in pairs bigeminal patterns and triplets, but no more sustained arrhythmia at that time. A pharmacological stress heart scan was performed May 2013 and showed hyperkinetic left ventricular wall motion, though she had a septal wall motion abnormality. There was evidence of chest wall and diaphragmatic attenuation artifacts but no reversible perfusion defect Plan For intermittent palpitations. She has history of paroxysmal SVT, PVCs and PACs. She also has aortic regurgitation and mitral regurgitation and cor pulmonale from her COPD and valvular heart disease. She probably still has frequent PACs and PVCS which she feels as palpitation. likely her valvular heart disease has also progressed. Seems clinically compensated at this time Will give her low-dose Lasix Will get an EKG VS,Rashaad, I+O VS, Rashaad, I+O Laboratory Tests 10/07/20 06:43 Vital Signs Date Time Temp Pulse Resp B/P (MAP) Pulse Ox O2 Delivery O2 Flow Rate FiO2 10/07/20 14:00 98.0 91 18 115/56 (75) 99 Room Air I&O- Last 24 Hours up to 6 AM 10/07/20 06:00 Intake Total 900 ml Output Total 0 ml Balance 900 ml LO MILLER MD Oct 07, 2020 19:20
[2020-10-07 20:00] VITALS: BP_SYST 12; BP_SYST 123; BP_DIAS 60
[2020-10-07] MEDS: SENNA 8.6 MG TAB (SENOKOT) PO SCH (20:41)
--- NOTE | 2020-10-07 21:06 | ECGEPIP ---
[facility] Test Date: 2020-10-07 Pat Name: KILEY THRASHER Department: Room: [place] [address] Gender: Female Counter Cutter: luigi : [id number] Requested By: LO MILLER Order Number: [id number] Reading MD: Jeronimo Kapoor Measurements Intervals War Rate: 76 P: -3 OH: 156 QRS: -39 QRSD: 116 T: 63 QT: 384 QTc: 432 Interpretive Statements Normal sinus rhythm Left bundle branch block NO CHANGE COMPARED TO 09/29/20 Electronically Signed on 10-07-2020 21:06:10 EDT by Jeronimo Kapoor
[2020-10-08 06:42] LABS: BASO % 0.7 % (0.0-1.0); EOS # 0.1 10^3/uL (0.0-0.5); EOS % 3.1 % (0.0-3.0); HEMATOCRIT 28.6 % (36.0-47.0); HEMOGLOBIN 9.1 g/dl (12.0-15.5); LYMPH # 1.6 10^3/uL (1.5-5.0); MEAN CORPUSCULAR HEMOGLOBIN 32.2 pg (27.0-33.0); MEAN CORPUSCULAR HGB CONC 31.8 g/dl (32.0-36.5); MEAN CORPUSCULAR VOLUME 101.1 fl (80.0-96.0); MONO # 0.3 10^3/uL (0.0-0.8); MONO % 7.1 % (2.0-8.0); NEUTROPHILS # 2.4 10^3/uL (1.5-8.5); NEUTROPHILS % 52.7 % (36.0-66.0); PLATELET COUNT, AUTOMATED 263 10^3/uL (150-450); RED BLOOD COUNT 2.83 10^6/uL (4.00-5.40); WHITE BLOOD COUNT 4.5 10^3/uL (4.0-10.0)
[2020-10-08 06:57] VITALS: BP 119/58
[2020-10-08] MEDS: VITAMIN D 1,000 INTERNATIONAL UNITS TABLET PO SCH (08:57)
[2020-10-08] MEDS: PANTOPRAZOLE 40MG TAB (PROTONIX) PO SCH ×2 (08:57→21:17)
[2020-10-08] MEDS: DOCUSATE SODIUM 100MG CAPSULE PO SCH ×2 (08:57→21:16)
[2020-10-08] MEDS: busPIRone 5 MG TAB PO SCH ×2 (08:57→21:17)
[2020-10-08] MEDS: SPIRONOLACTONE 12.5MG PER 1/2 TABLET PO SCH (08:57)
[2020-10-08] MEDS: REMEDY PHYTOPLEX Z-GUARD PASTE 113GM TUBE (FROM STOREROOM PRODUCT) TOP SCH ×3 (08:58→21:18)
[2020-10-08] MEDS: CARVedilol 3.125 MG TAB PO SCH ×2 (08:59→21:17)
[2020-10-08 14:00] VITALS: BP 119/56
[2020-10-08] MEDS ORDERED: FIORICET TAB PO PRN (17:00)
[2020-10-08] MEDS: MIRTAZAPINE 15 MG TAB PO SCH (18:43)
[2020-10-08 20:00] VITALS: BP 110/59
[2020-10-08] MEDS: SENNA 8.6 MG TAB (SENOKOT) PO SCH (21:16)
[2020-10-09 06:12] VITALS: BP 117/56
[2020-10-09 07:16] LABS: HEMATOCRIT 29.5 % (36.0-47.0); HEMOGLOBIN 9.5 g/dl (12.0-15.5); MEAN CORPUSCULAR HEMOGLOBIN 32.4 pg (27.0-33.0); MEAN CORPUSCULAR HGB CONC 32.2 g/dl (32.0-36.5); MEAN CORPUSCULAR VOLUME 100.7 fl (80.0-96.0); PLATELET COUNT, AUTOMATED 289 10^3/uL (150-450); RED BLOOD COUNT 2.93 10^6/uL (4.00-5.40); WHITE BLOOD COUNT 4.5 10^3/uL (4.0-10.0)
[2020-10-09 07:38] LABS: BLOOD UREA NITROGEN 19 MG/DL (7-18); CALCIUM LEVEL 9.1 MG/DL (8.8-10.2); CARBON DIOXIDE LEVEL 31 MEQ/L (21-32); CHLORIDE LEVEL 105 MEQ/L (98-107); CREATININE FOR GFR 0.89 MG/DL (0.55-1.30); GLOMERULAR FILTRATION RATE > 60.0 (>32); GLUCOSE, FASTING 85 MG/DL (70-100); POTASSIUM SERUM 3.9 MEQ/L (3.5-5.1); SODIUM LEVEL 141 MEQ/L (136-145)
[2020-10-09] MEDS: busPIRone 5 MG TAB PO SCH ×2 (08:18→20:28)
[2020-10-09] MEDS: DOCUSATE SODIUM 100MG CAPSULE PO SCH ×2 (08:18→20:28)
[2020-10-09] MEDS: PANTOPRAZOLE 40MG TAB (PROTONIX) PO SCH ×2 (08:18→20:28)
[2020-10-09] MEDS: VITAMIN D 1,000 INTERNATIONAL UNITS TABLET PO SCH (08:18)
[2020-10-09] MEDS: REMEDY PHYTOPLEX Z-GUARD PASTE 113GM TUBE (FROM STOREROOM PRODUCT) TOP SCH ×3 (08:19→20:28)
[2020-10-09] MEDS: CARVedilol 3.125 MG TAB PO SCH ×2 (08:19→20:28)
[2020-10-09] MEDS: SPIRONOLACTONE 12.5MG PER 1/2 TABLET PO SCH (08:19)
--- NOTE | 2020-10-09 12:59 | IPNPDOC ---
PM&R Progress Note DATE OF SERVICE: Oct 07, 2020 Tooth Cutter Progress Note Subjective: Patient reporting she feels tired today, but is able to participate in therapy. She noted that she felt palpitations after a long walk in therapy. she denies chest pain/pressure or new focal weakness. REVIEW OF SYSTEMS: The following is a completed review of systems and has been reviewed. Review of systems otherwise unremarkable. PAIN: Patient self reports no pain EYES: No recent vision changes EARS, NOSE, & THROAT: No throat pain, or dysphagia, or rhinorrhea CARDIOVASCULAR: Denies chest pain or palpitations PULMONARY: Denies shortness of breath GASTROINTESTINAL: Denies constipation/diarrhea GENITOURINARY: denies dysuria MUSCULOSKELETAL: generalized weakness NEUROLOGICAL:denies tremors or paresthesias HEMATOLOGICAL: +anemia SKIN: denies rash PSYCHIATRIC: Unremarkable All other review of systems found to be negative. PHYSICAL EXAMINATION: VITAL SIGNS: Please see below. GENERAL: Pleasant and cooperative. No acute distress. HEENT: PERRL. Extraocular movements intact. Clear conjunctiva CARDIOVASCULAR: Regular rate and rhythm. No murmurs, rubs, or gallops LUNGS: Clear to auscultation bilaterally. No wheezes. No rhonchi ABDOMEN: Soft, nontender, nondistended. Positive bowel sounds. Normal active bowel sounds NEUROLOGICAL: Alert and oriented times three. Cranial nerves II through XII grossly intact. Sensation grossly intact EXTREMITIES: 4+\5 strength bilateral upper extremities. 4+\5 strength right lower extremity. 4+/5 strength in left lower extremity. +kyphotic ASSESSMENT:85 year-old F with past medical history of afib who presents status post GI bleed with weakness PLAN: 1. Rehab- PT/OT advance mobility and ADLs, strengthen/stretch/maintain ROM all 4 limbs 2. Cardiac- hx of cor pulmonale c/u daily weights, fluid restrict, c/u aldactone -Afib c/u coreg, had initially been transitioned to renally dosed xarelto on i npatient, now off all AC due to GI bleed, f/u with cardio on d/c for further management -patient reporting episode of palpitation today after walking a far distance in therapy that lasted a few seconds without chest pain or dizziness, patient has hx of SVTs, will ask hospitalist to evaluate further - medicine consulted to assist in overall management 3. Resp- hx of COPD on , c/u inhalers, monitor for infection 4. GI- recent GI bleed with + FOBT with colonoscopy + severe diverticulitis and internal hemorrhoids -EGD + hiatal hernia c/u iron supplements -f/u GI outpatient -will order repeat FOBT 5. DVT ppx- teds, ambulating well, off xarelto due to GI bleed 6. Pain- tylenol prn 7. Psych- on remeron 8. Heme- s/p 2 prbc transfusion for GI blood loss with SUKHI, c/u iron supplelemt, c/u prbc transfusion if Hgb <8 9. Dispo- TBD Allergies Coded Allergies: No Known Allergies (Unverified , 07/09/20) Vital Signs Vital Signs Date Time Temp Pulse Resp B/P (MAP) Pulse Ox O2 Delivery O2 Flow Rate FiO2 10/09/20 08:19 64 117/56 10/09/20 06:12 98.8 18 97 Room Air 10/08/20 22:35 2.0 Laboratory Data CBC/BMP Laboratory Tests 10/09/20 06:56 Labs 24H Laboratory Tests 2 10/09/20 06:56: Nucleated Red Blood Cells % (auto) 0.0, Anion Gap 5L, Glomerular Filtration Rate > 60.0, Calcium Level 9.1 Microbiology Microbiology 10/08/20 Stool Occult Blood (RAVI) - Final, Complete Current Medications Current Medications Current Medications Medications (Trade) Dose Ordered Sig/Nikolay Route PRN Reason Start Time Stop Time Status Last Admin Dose Admin Acetaminophen (Tylenol Tab) 650 mg Q4HP PRN PO fever/MILD PAIN (PS 1-4) 10/04/20 22:05 Acetaminophen/ Butalbital/ Caffeine (Fioricet) 1 ea Q8HP PRN PO HEADACHE 10/08/20 17:00 10/08/20 16:37 DC Bisacodyl (Dulcolax Suppository) 10 mg DAILYPRN PRN MS CONSTIPATION 10/04/20 22:05 Buspirone HCl (Buspar) 15 mg BID PO 10/04/20 21:00 10/09/20 08:18 Carvedilol (COReg) 3.125 mg BID PO 10/04/20 22:05 10/09/20 08:19 Docusate Sodium (Colace) 100 mg BID PO 10/05/20 09:00 10/09/20 08:18 Mirtazapine (Remeron) 30 mg QHS@1800 PO 10/05/20 18:00 10/08/20 18:43 Pantoprazole Sodium (Protonix) 40 mg BID PO 10/04/20 21:00 10/09/20 08:18 Senna (Senokot) 1 tab QHS PO 10/04/20 21:00 10/08/20 21:16 Spironolactone (Aldactone) 12.5 mg QAM PO 10/05/20 09:00 10/09/20 08:19 Vitamin D (Vitamin D) 1,000 units DAILY PO 10/05/20 09:00 10/09/20 08:18 DEVONTE TABOR MD Oct 09, 2020 12:58
--- NOTE | 2020-10-09 13:06 | IPNPDOC ---
PM&R Progress Note DATE OF SERVICE: Oct 09, 2020 Cutter Head Sharpener Progress Note Subjective: Patient states she feels much stronger and sees the benefit of having come to ARU where she is walking longer distances than she does at home and has more energy. She states she will take the time at home now to walk longer distances to stay more active. REVIEW OF SYSTEMS: The following is a completed review of systems and has been reviewed. Review of systems otherwise unremarkable. PAIN: Patient self reports no pain EYES: No recent vision changes EARS, NOSE, & THROAT: No throat pain, or dysphagia, or rhinorrhea CARDIOVASCULAR: Denies chest pain or palpitations PULMONARY: Denies shortness of breath GASTROINTESTINAL: Denies constipation/diarrhea GENITOURINARY: denies dysuria MUSCULOSKELETAL: generalized weakness NEUROLOGICAL:denies tremors or paresthesias HEMATOLOGICAL: +anemia SKIN: denies rash PSYCHIATRIC: Unremarkable All other review of systems found to be negative. PHYSICAL EXAMINATION: VITAL SIGNS: Please see below. GENERAL: Pleasant and cooperative. No acute distress. HEENT: PERRL. Extraocular movements intact. Clear conjunctiva CARDIOVASCULAR: Regular rate and rhythm. No murmurs, rubs, or gallops LUNGS: Clear to auscultation bilaterally. No wheezes. No rhonchi ABDOMEN: Soft, nontender, nondistended. Positive bowel sounds. Normal active bowel sounds NEUROLOGICAL: Alert and oriented times three. Cranial nerves II through XII grossly intact. Sensation grossly intact EXTREMITIES: 4+\5 strength bilateral upper extremities. 4+\5 strength right lower extremity. 4+/5 strength in left lower extremity. +kyphotic ASSESSMENT:85 year-old F with past medical history of afib who presents status post GI bleed with weakness PLAN: 1. Rehab- PT/OT advance mobility and ADLs, strengthen/stretch/maintain ROM all 4 limbs- room privileges 2. Cardiac- hx of cor pulmonale c/u daily weights, fluid restrict, c/u aldactone -Afib c/u coreg, had initially been transitioned to renally dosed xarelto on inpatient, now off all AC due to GI bleed, f/u with cardio on d/c for further management -patient reporting episode of palpitation 10/07/20 after walking a far distance in therapy that lasted a few seconds without chest pain or dizziness, patient has hx of SVTs, evaluated by hospitalist who ordered lasix x1 dose, recs appreci ated, EKG WNL- no further complaints - medicine consulted to assist in overall management 3. Resp- hx of COPD on , c/u inhalers, monitor for infection 4. GI- recent GI bleed with + FOBT with colonoscopy + severe diverticulitis and internal hemorrhoids -EGD + hiatal hernia c/u iron supplements -f/u GI outpatient - repeat FOBT 10/08/20 negative 5. DVT ppx- teds, ambulating well, off xarelto due to GI bleed 6. Pain- tylenol prn 7. Psych- on remeron 8. Heme- s/p 2 prbc transfusion for GI blood loss with SUKHI, c/u iron supplelemt, c/u prbc transfusion if Hgb <8, c/u to monitor 9. Dispo- 10-11-20 to home, progressing towards goals Allergies Coded Allergies: No Known Allergies (Unverified , 07/09/20) Vital Signs Vital Signs Date Time Temp Pulse Resp B/P (MAP) Pulse Ox O2 Delivery O2 Flow Rate FiO2 10/09/20 08:19 64 117/56 10/09/20 06:12 98.8 18 97 Room Air 10/08/20 22:35 2.0 Laboratory Data CBC/BMP Laboratory Tests 10/09/20 06:56 Labs 24H Laboratory Tests 2 10/09/20 06:56: Nucleated Red Blood Cells % (auto) 0.0, Anion Gap 5L, Glomerular Filtration Rate > 60.0, Calcium Level 9.1 Microbiology Microbiology 10/08/20 Stool Occult Blood (RAVI) - Final, Complete Current Medications Current Medications Current Medications Medications (Trade) Dose Ordered Sig/Nikolay Route PRN Reason Start Time Stop Time Status Last Admin Dose Admin Acetaminophen (Tylenol Tab) 650 mg Q4HP PRN PO fever/MILD PAIN (PS 1-4) 10/04/20 22:05 Acetaminophen/ Butalbital/ Caffeine (Fioricet) 1 ea Q8HP PRN PO HEADACHE 10/08/20 17:00 10/08/20 16:37 DC Bisacodyl (Dulcolax Suppository) 10 mg DAILYPRN PRN IN CONSTIPATION 10/04/20 22:05 Buspirone HCl (Buspar) 15 mg BID PO 10/04/20 21:00 10/09/20 08:18 Carvedilol (COReg) 3.125 mg BID PO 10/04/20 22:05 10/09/20 08:19 Docusate Sodium (Colace) 100 mg BID PO 10/05/20 09:00 10/09/20 08:18 Mirtazapine (Remeron) 30 mg QHS@1800 PO 10/05/20 18:00 10/08/20 18:43 Pantoprazole Sodium (Protonix) 40 mg BID PO 10/04/20 21:00 10/09/20 08:18 Senna (Senokot) 1 tab QHS PO 10/04/20 21:00 10/08/20 21:16 Spironolactone (Aldactone) 12.5 mg QAM PO 10/05/20 09:00 10/09/20 08:19 Vitamin D (Vitamin D) 1,000 units DAILY PO 10/05/20 09:00 10/09/20 08:18 DEVONTE TABOR MD Oct 09, 2020 13:06
--- NOTE | 2020-10-09 13:06 | IPNPDOC ---
PM&R Progress Note DATE OF SERVICE: Oct 08, 2020 [employer] Progress Note Subjective: Patient reporting she was up all night urinating after having received lasix and that she has not had any further palpitations today. REVIEW OF SYSTEMS: The following is a completed review of systems and has been reviewed. Review of systems otherwise unremarkable. PAIN: Patient self reports no pain EYES: No recent vision changes EARS, NOSE, & THROAT: No throat pain, or dysphagia, or rhinorrhea CARDIOVASCULAR: Denies chest pain or palpitations PULMONARY: Denies shortness of breath GASTROINTESTINAL: Denies constipation/diarrhea GENITOURINARY: denies dysuria MUSCULOSKELETAL: generalized weakness NEUROLOGICAL:denies tremors or paresthesias HEMATOLOGICAL: +anemia SKIN: denies rash PSYCHIATRIC: Unremarkable All other review of systems found to be negative. PHYSICAL EXAMINATION: VITAL SIGNS: Please see below. GENERAL: Pleasant and cooperative. No acute distress. HEENT: PERRL. Extraocular movements intact. Clear conjunctiva CARDIOVASCULAR: Regular rate and rhythm. No murmurs, rubs, or gallops LUNGS: Clear to auscultation bilaterally. No wheezes. No rhonchi ABDOMEN: Soft, nontender, nondistended. Positive bowel sounds. Normal active bowel sounds NEUROLOGICAL: Alert and oriented times three. Cranial nerves II through XII grossly intact. Sensation grossly intact EXTREMITIES: 4+\5 strength bilateral upper extremities. 4+\5 strength right lower extremity. 4+/5 strength in left lower extremity. +kyphotic ASSESSMENT:85 year-old F with past medical history of afib who presents status post GI bleed with weakness PLAN: 1. Rehab- PT/OT advance mobility and ADLs, strengthen/stretch/maintain ROM all 4 limbs 2. Cardiac- hx of cor pulmonale c/u daily weights, fluid restrict, c/u aldactone -Afib c/u coreg, had initially been transitioned to renally dosed xarelto on inpatient, now off all AC due to GI bleed, f/u with cardio on d/c for further management -patient reporting episode of palpitation 10/07/20 after walking a far distance in therapy that lasted a few seconds without chest pain or dizziness, patient has hx of SVTs, evaluated by hospitalist who ordered lasix x1 dose, recs appreciated, EKG WNL, patient not complaining of palpitations today - medicine consulted to assist in overall management 3. Resp- hx of COPD on , c/u inhalers, monitor for infection 4. GI- recent GI bleed with + FOBT with colonoscopy + severe diverticulitis and internal hemorrhoids -EGD + hiatal hernia c/u iron supplements -f/u GI outpatient - repeat FOBT 10/08/20 negative 5. DVT ppx- teds, ambulating well, off xarelto due to GI bleed 6. Pain- tylenol prn 7. Psych- on remeron 8. Heme- s/p 2 prbc transfusion for GI blood loss with SUKHI, c/u iron supplelemt, c/u prbc transfusion if Hgb <8, c/u to monitor 9. Dispo- 10-11-20 to home, progressing towards goals Allergies Coded Allergies: No Known Allergies (Unverified , 07/09/20) Vital Signs Vital Signs Date Time Temp Pulse Resp B/P (MAP) Pulse Ox O2 Delivery O2 Flow Rate FiO2 10/09/20 08:19 64 117/56 10/09/20 06:12 98.8 18 97 Room Air 10/08/20 22:35 2.0 Laboratory Data CBC/BMP Laboratory Tests 10/09/20 06:56 Labs 24H Laboratory Tests 2 10/09/20 06:56: Nucleated Red Blood Cells % (auto) 0.0, Anion Gap 5L, Glomerular Filtration Rate > 60.0, Calcium Level 9.1 Microbiology Microbiology 10/08/20 Stool Occult Blood (RAVI) - Final, Complete Current Medications Current Medications Current Medications Medications (Trade) Dose Ordered Sig/Nikolay Route PRN Reason Start Time Stop Time Status Last Admin Dose Admin Acetaminophen (Tylenol Tab) 650 mg Q4HP PRN PO fever/MILD PAIN (PS 1-4) 10/04/20 22:05 Acetaminophen/ Butalbital/ Caffeine (Fioricet) 1 ea Q8HP PRN PO HEADACHE 10/08/20 17:00 10/08/20 16:37 DC Bisacodyl (Dulcolax Suppository) 10 mg DAILYPRN PRN [place] CONSTIPATION 10/04/20 22:05 Buspirone HCl (Buspar) 15 mg BID PO 10/04/20 21:00 10/09/20 08:18 Carvedilol (COReg) 3.125 mg BID PO 10/04/20 22:05 10/09/20 08:19 Docusate Sodium (Colace) 100 mg BID PO 10/05/20 09:00 10/09/20 08:18 Mirtazapine (Remeron) 30 mg QHS@1800 PO 10/05/20 18:00 10/08/20 18:43 Pantoprazole Sodium (Protonix) 40 mg BID PO 10/04/20 21:00 10/09/20 08:18 Senna (Senokot) 1 tab QHS PO 10/04/20 21:00 10/08/20 21:16 Spironolactone (Aldactone) 12.5 mg QAM PO 10/05/20 09:00 10/09/20 08:19 Vitamin D (Vitamin D) 1,000 units DAILY PO 10/05/20 09:00 10/09/20 08:18 DEVONTE TABOR MD Oct 09, 2020 13:06
[2020-10-09 14:00] VITALS: BP 120/59
[2020-10-09] MEDS: MIRTAZAPINE 15 MG TAB PO SCH (17:17)
[2020-10-09 20:00] VITALS: BP 124/59
[2020-10-09] MEDS: SENNA 8.6 MG TAB (SENOKOT) PO SCH (20:28)
[2020-10-10 06:00] VITALS: BP 105/53
[2020-10-10 06:17] LABS: HEMATOCRIT 26.6 % (36.0-47.0); HEMOGLOBIN 8.5 g/dl (12.0-15.5); MEAN CORPUSCULAR HEMOGLOBIN 32.4 pg (27.0-33.0); MEAN CORPUSCULAR VOLUME 101.5 fl (80.0-96.0); PLATELET COUNT, AUTOMATED 259 10^3/uL (150-450); RED BLOOD COUNT 2.62 10^6/uL (4.00-5.40); WHITE BLOOD COUNT 3.8 10^3/uL (4.0-10.0)
[2020-10-10] MEDS: SPIRONOLACTONE 12.5MG PER 1/2 TABLET PO SCH (07:14)
[2020-10-10] MEDS: CARVedilol 3.125 MG TAB PO SCH ×2 (07:14→20:04)
[2020-10-10] MEDS: busPIRone 5 MG TAB PO SCH ×2 (07:15→20:03)
[2020-10-10] MEDS: VITAMIN D 1,000 INTERNATIONAL UNITS TABLET PO SCH (07:15)
[2020-10-10] MEDS: DOCUSATE SODIUM 100MG CAPSULE PO SCH ×2 (07:15→20:04)
[2020-10-10] MEDS: PANTOPRAZOLE 40MG TAB (PROTONIX) PO SCH ×2 (07:15→20:03)
[2020-10-10] MEDS: REMEDY PHYTOPLEX Z-GUARD PASTE 113GM TUBE (FROM STOREROOM PRODUCT) TOP SCH ×3 (07:15→20:04)
[2020-10-10 14:00] VITALS: BP 117/53
[2020-10-10] MEDS: MIRTAZAPINE 15 MG TAB PO SCH (17:22)
[2020-10-10 20:00] VITALS: BP 124/56
[2020-10-10] MEDS: SENNA 8.6 MG TAB (SENOKOT) PO SCH (20:04)
[2020-10-11 06:00] VITALS: BP 120/54
[2020-10-11 08:59] VITALS: BP 120/54
[2020-10-11] MEDS: busPIRone 5 MG TAB PO SCH (08:59)
[2020-10-11] MEDS: DOCUSATE SODIUM 100MG CAPSULE PO SCH (08:59)
[2020-10-11] MEDS: REMEDY PHYTOPLEX Z-GUARD PASTE 113GM TUBE (FROM STOREROOM PRODUCT) TOP SCH (08:59)
[2020-10-11] MEDS: PANTOPRAZOLE 40MG TAB (PROTONIX) PO SCH (08:59)
[2020-10-11] MEDS: VITAMIN D 1,000 INTERNATIONAL UNITS TABLET PO SCH (08:59)
[2020-10-11] MEDS: CARVedilol 3.125 MG TAB PO SCH (08:59)
[2020-10-11] MEDS: SPIRONOLACTONE 12.5MG PER 1/2 TABLET PO SCH (08:59)
[2020-10-11] MEDS ORDERED: D31000TA2 PO (10:58)
[2020-10-11] MEDS ORDERED: PANT40TA29 PO (10:58)
[2020-10-11] MEDS ORDERED: CARV3.12 PO (10:58)
[2020-10-11] MEDS ORDERED: MIRT-60 PO (10:58)
[2020-10-11] MEDS ORDERED: SPIR-10 MT (10:58)
[2020-10-11] MEDS ORDERED: BUSP15TA47 PO (10:58)
--- NOTE | 2020-10-11 11:05 | IPNPDOC ---
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 She reports she continues to feel stronger. REVIEW OF SYSTEMS: The following is a completed review of systems and has been reviewed. Review of systems otherwise unremarkable. PAIN: Patient self reports no pain EYES: No recent vision changes EARS, NOSE, & THROAT: No throat pain, or dysphagia, or rhinorrhea CARDIOVASCULAR: Denies chest pain or palpitations PULMONARY: Denies shortness of breath GASTROINTESTINAL: Denies constipation/diarrhea GENITOURINARY: denies dysuria MUSCULOSKELETAL: generalized weakness NEUROLOGICAL:denies tremors or paresthesias HEMATOLOGICAL: +anemia SKIN: denies rash PSYCHIATRIC: Unremarkable All other review of systems found to be negative. PHYSICAL EXAMINATION: VITAL SIGNS: Please see below. GENERAL: Pleasant and cooperative. No acute distress. HEENT: PERRL. Extraocular movements intact. Clear conjunctiva CARDIOVASCULAR: Regular rate and rhythm. No murmurs, rubs, or gallops LUNGS: Clear to auscultation bilaterally. No wheezes. No rhonchi ABDOMEN: Soft, nontender, nondistended. Positive bowel sounds. Normal active bowel sounds NEUROLOGICAL: Alert and oriented times three. Cranial nerves II through XII grossly intact. Sensation grossly intact EXTREMITIES: 4+\5 strength bilateral upper extremities. 4+\5 strength right lower extremity. 4+/5 strength in left lower extremity. +kyphotic ASSESSMENT:85 year-old F with past medical history of afib who presents status post GI bleed with weakness PLAN: 1. Rehab- PT/OT advance mobility and ADLs, strengthen/stretch/maintain ROM all 4 limbs- room privileges 2. Cardiac- hx of cor pulmonale c/u daily weights, fluid restrict, c/u aldactone -Afib c/u coreg, had initially been transitioned to renally dosed xarelto on inpatient, now off all AC due to GI bleed, f/u with cardio on d/c for further management -patient reporting episode of palpitation 10/07/20 after walking a far distance in therapy that lasted a few seconds without chest pain or dizziness, patient has hx of SVTs, evaluated by hospitalist who ordered lasix x1 dose, recs appreciated, EKG WNL- no further complaints - medicine consulted to assist in overall management 3. Resp- hx of COPD on , c/u inhalers, monitor for infection 4. GI- recent GI bleed with + FOBT with colonoscopy + severe diverticulitis and internal hemorrhoids -EGD + hiatal hernia c/u iron supplements -f/u GI outpatient - repeat FOBT 10/08/20 negative 5. DVT ppx- teds, ambulating well, off xarelto due to GI bleed 6. Pain- tylenol prn 7. Psych- on remeron 8. Heme- s/p 2 prbc transfusion for GI blood loss with SUKHI, c/u iron supplelemt, c/u prbc transfusion if Hgb <8, c/u to monitor 9. Dispo- 10-11-20 to home, progressing towards goals Allergies Coded Allergies: No Known Allergies (Unverified , 07/09/20) Vital Signs Vital Signs Date Time Temp Pulse Resp B/P (MAP) Pulse Ox O2 Delivery O2 Flow Rate FiO2 10/11/20 08:59 88 120/54 10/11/20 06:00 98.4 18 94 Room Air 10/08/20 22:35 2.0 Microbiology Microbiology 10/08/20 Stool Occult Blood (RAVI) - Final, Complete Current Medications Current Medications Current Medications Medications (Trade) Dose Ordered Sig/Nikolay Route PRN Reason Start Time Stop Time Status Last Admin Dose Admin Acetaminophen (Tylenol Tab) 650 mg Q4HP PRN PO fever/MILD PAIN (PS 1-4) 10/04/20 22:05 10/11/20 06:57 Acetaminophen/ Butalbital/ Caffeine (Fioricet) 1 ea Q8HP PRN PO HEADACHE 10/08/20 17:00 10/08/20 16:37 DC Bisacodyl (Dulcolax Suppository) 10 mg DAILYPRN PRN [place] CONSTIPATION 10/04/20 22:05 Buspirone HCl (Buspar) 15 mg BID PO 10/04/20 21:00 10/11/20 08:59 Carvedilol (COReg) 3.125 mg BID PO 10/04/20 22:05 10/11/20 08:59 Docusate Sodium (Colace) 100 mg BID PO 10/05/20 09:00 10/09/20 20:28 Mirtazapine (Remeron) 30 mg QHS@1800 PO 10/05/20 18:00 10/10/20 17:22 Pantoprazole Sodium (Protonix) 40 mg BID PO 10/04/20 21:00 10/11/20 08:59 Senna (Senokot) 1 tab QHS PO 10/04/20 21:00 10/09/20 20:28 Spironolactone (Aldactone) 12.5 mg QAM PO 10/05/20 09:00 10/11/20 08:59 Vitamin D (Vitamin D) 1,000 units DAILY PO 10/05/20 09:00 10/11/20 08:59 DEVONTE TABOR MD Oct 11, 2020 11:05
--- NOTE | 2020-10-11 11:40 | PMRDS ---
NAME: KILEY THRASHER [facility] WT ID#: [id number] : [id number] JOB: [id number] DENEEN: 10/04/2020 ACCT: [id number] DOCTOR: DEVONTE TABOR MD PMR DISCHARGE SUMMARY DATE OF ADMISSION: 10/04/2020 DATE OF DISCHARGE: 10/11/2020 CHIEF COMPLAINT/DISCHARGE DIAGNOSIS: Weakness in the setting of GI bleed. HISTORY OF PRESENT ILLNESS: This is an 85-year-old female with a past medical history of COPD on O2, GERD, atrial fibrillation on Xarelto, cor pulmonale, paroxysmal SVT, mitral and aortic valve insufficiency, hemachromatosis, VT who presented to [facility] on 09/02/2020 with severe weakness and reports of bloody bowel movements. She had a positive FOBT, a hemoglobin of 5.7 and was admitted for anemia workup. She received blood transfusions and was evaluated by GI. On 10/02/2020, Dr. Kendall performed an EGD showing a large hiatal hernia deemed to be the cause of her iron deficiency and colonoscopy showing severe diverticulitis and internal hemorrhoids. GI recommended oral iron supplement, avoid NSAIDs and to start PPI. CT of the abdomen and pelvis did show a dilated pancreatic duct but GI did not advise further workup. She was noted to have impairments in mobility and ADLs and deemed medically appropriate for discharge to ARU. PAST MEDICAL HISTORY: As per HPI. HOSPITAL COURSE: The patient was admitted and enrolled in a comprehensive PT/OT program. She received 24 hour nursing supervision and weekly team meetings were held to discuss her progress. For her cor pulmonale, she was maintained on a fluid restriction and continued Aldactone. For her atrial fibrillation, she was maintained on Coreg and her Xarelto was also held. She had an episode of palpitations on 10/07/2020 after walking a far distance, cardiac workup was negative. She received one time dose of Lasix and had no further complaints. Patient had a repeat FBOT on 10/08/2020 which was negative. She was provided with iron supplements and had no signs of bleeds. She made slow and steady gains in therapy with overall improved endurance and was deemed medically and functionally stable to return home. DISCHARGE MEDICATIONS: As per instructions. FUNCTIONAL HISTORY: On discharge, patient was modified independent for functional transfers, ambulation, dressing, bathing, toileting. Thank you for this referral.
== END 2020-10-11 13:10 | disposition home or self-care (01) | DRG 948 ==
LOC: M PM&R 20:46
PROVIDERS: ADMIT Physical Medicine & Rehabilitation; ATTEND Physical Medicine & Rehabilitation
DX: R53.1 Weakness (principal); I47.1 Supraventricular tachycardia; J44.9 Chronic obstructive pulmonary disease, unspecified; K21.9 Gastro-esophageal reflux disease without esophagitis; I48.91 Unspecified atrial fibrillation; I27.81 Cor pulmonale (chronic); I08.1 Rheumatic disorders of both mitral and tricuspid valves; E83.119 Hemochromatosis, unspecified; K44.9 Diaphragmatic hernia without obstruction or gangrene; K64.8 Other hemorrhoids; Z74.09 Other reduced mobility; Z74.1 Need for assistance with personal care; Z90.49 Acquired absence of other specified parts of digestive tract; Z98.41 Cataract extraction status, right eye; D64.9 Anemia, unspecified; Z87.891 Personal history of nicotine dependence; Z66 Do not resuscitate; Z99.81 Dependence on supplemental oxygen; Z79.899 Other long term (current) drug therapy; M41.84 Other forms of scoliosis, thoracic region; R00.2 Palpitations

== ENCOUNTER 2021-06-24 17:54 | Emergency (ER) | payer MEDICARE ==
[~2021-06-24] VITALS: Ht 152.4 cm; Wt 40.9 kg
[~2021-06-24 17:54] MED LIST changes: -AMIO200T3 FT; +AMIO200T49 FT; +OMEP40CA4 PO; -OMEP40CA97 PO; +SPIR-10 MT
[2021-06-24] MEDS ORDERED: MAGN400T33 (18:06)
[2021-06-24 19:28] LABS: BASO % 0.7 % (0.0-1.0); EOS # 0.1 10^3/uL (0.0-0.5); HEMATOCRIT 35.2 % (36.0-47.0); HEMOGLOBIN 11.9 g/dl (12.0-15.5); LYMPH # 1.2 10^3/uL (1.5-5.0); LYMPH % 25.1 % (24.0-44.0); MEAN CORPUSCULAR HEMOGLOBIN 34.1 pg (27.0-33.0); MEAN CORPUSCULAR HGB CONC 33.8 g/dl (32.0-36.5); MEAN CORPUSCULAR VOLUME 100.9 fl (80.0-96.0); MONO # 0.3 10^3/uL (0.0-0.8); MONO % 5.7 % (2.0-8.0); NEUTROPHILS % 66.3 % (36.0-66.0); PLATELET COUNT, AUTOMATED 225 10^3/uL (150-450); RED BLOOD COUNT 3.49 10^6/uL (4.00-5.40); WHITE BLOOD COUNT 4.6 10^3/uL (4.0-10.0)
[2021-06-24 20:01] LABS: ALBUMIN 4.1 GM/DL (3.2-5.2); BILIRUBIN,DIRECT 0.3 MG/DL (0.0-0.2); BILIRUBIN,TOTAL 1.3 MG/DL (0.2-1.0); CALCIUM LEVEL 9.7 MG/DL (8.8-10.2); CREATININE FOR GFR 0.94 MG/DL (0.55-1.30); FREE T4 1.32 NG/DL (0.76-1.46); POTASSIUM SERUM 4.4 MEQ/L (3.5-5.1); THYROID STIMULATING HORMONE 1.15 uIU/ML (0.358-3.740); TOTAL PROTEIN 7.5 GM/DL (6.4-8.2)
[2021-06-24 21:23] VITALS: BP 115/71
== END 2021-06-24 22:06 | disposition home or self-care (01) ==
LOC: M ED 17:54
DX: R42 Dizziness and giddiness (principal); J44.9 Chronic obstructive pulmonary disease, unspecified; I48.91 Unspecified atrial fibrillation; K21.9 Gastro-esophageal reflux disease without esophagitis; I47.1 Supraventricular tachycardia; Z79.899 Other long term (current) drug therapy; Z87.891 Personal history of nicotine dependence